=== PATIENT | male | born 1985 | race Caucasian/White ===

== ENCOUNTER 2021-09-08 14:26 | Emergency (ER) | payer OTHER, SELFPAY ==
[2021-09-08 14:52] VITALS: BP 128/69; PULSE 64; RESP 18; TEMP 36.9; O2SAT 97; BMI 25.5
--- NOTE | 2021-09-08 16:05 | ED.GENADULT ---
HPI - General Adult General Chief complaint: General Medical Stated complaint: nose bleed Time Seen by Provider: 09/08/21 16:01 Source: patient Mode of arrival: ambulatory Limitations: no limitations History of Present Illness HPI narrative: 35-year-old male previously healthy here with reports of nose bleed which the patient notice with waking at 05:00. It lasted several hours and self-resolved. No history of same. No history of anticoagulation use. No current nose bleed. Review of Systems Review of Systems: Yes all other systems are reviewed and are negative Constitutional: Constitutional: Reports no additional constitutional complaints, Denies body ache(s), Denies chills, Denies fever(s), Denies headache(s) and Denies weakness Eyes: Eyes: Reports no additional eye complaints and Denies change in vision ENT: Reports system reviewed and no additional complaints, except as documented, Denies dizziness, Denies headache(s), Reports epistaxis, Denies nasal congestion, Denies nasal discharge and Denies neck pain Cardiovascular: Cardiovascular: Reports no additional cardiovascular complaints, Denies chest pain, Denies leg edema and Denies dyspnea Respiratory: Respiratory: Reports no additional respiratory complaints, Denies cough and Denies dyspnea Gastrointestinal: Gastrointestinal: Reports no additional gastrointestinal complaints, Denies abdominal pain, Denies diarrhea, Denies nausea and Denies vomiting Genitourinary: Genitourinary: Denies urinary incontinence Musculoskeletal: Musculoskeletal: Reports no additional musculoskeletal complaints, Denies back pain, Denies arthralgias, Denies joint swelling, Denies neck pain, Denies numbness and Denies tingling Integumentary/Breasts: Skin/Breast: Reports system reviewed and no additional complaints, except as docu and Denies rash Neurologic: Reports system reviewed and no additional complaints, except as documented, Denies dizziness, Denies headache(s), Denies numbness, Denies tingling and Denies weakness [facility] Past Medical History Attestation statement: The following information was validated with the patient. Source: old records reviewed and nursing notes reviewed Medical History Asthma Physical Exam ED Vital Signs: Vital Signs - 24 hr 09/08/21 14:52 09/08/21 16:19 Temperature 98.4 F Pulse Rate 64 70 Respiratory Rate 18 18 Blood Pressure 128/69 120/70 Pulse Oximetry 97 99 BMI result Body Mass Index 25.5 Const General: cooperative, healthy appearing, comfortable and no acute distress Orientation/consciousness: patient oriented x3 Limitations: no limitations HENMT Head: Yes normal to inspection Ears: hearing grossly normal bilaterally and TM's normal bilaterally General nose exam: Normal external nose present, Abnormal mucous membranes and turbinates present erythematous and no epistaxis Face and sinus: Yes normal facial exam Mouth: Normal oral and palatal mucosa present Teeth and gingiva: dentition normal Throat: Yes posterior oropharynx normal, Yes tonsils normal and Yes uvula midline Eyes General: appearance normal, both eyes and all related structures Pupils: Equal, round and reactive pupils present Neck Neck: Yes normal visual inspection, Yes full ROM and Yes no lymphadenopathy Chest Chest palpation & inspection: normal inspection of the chest Resp Effort & Inspection: normal respiratory effort Cardio Peripheral pulses: Peripheral pulses 2+ throughout GI Inspection: Yes normal to inspection Back/Spine/Pelvis Thoracic/Lumbar Spine: thoracic and lumbar spine normal to inspection Skin General skin exam: no rashes or lesions noted Neuro General: patient oriented x3 and moves all extremities Cranial nerves: Yes Equal, round and reactive pupils present Cognition (Neuro): normal cognition Extrem General: Yes normal to inspection Course Course Course Narrative: 35-year-old male with reports of nose bleed which he woke up with early this morning which lasted for several hours and self-resolved. Patient has no bleeding here in the emergency department. Exam is normal. I discussed with the patient this is likely due to the cold dry air. He should consider buying him humidifer the bedroom, lubrication for his nose, Afrin p.r.n. for bleeding at home. Reviewed worrisome signs and symptoms of when to return to the emergency department. Comfortable discharge home. Medical Decision Making Medical Records Medical records reviewed: Yes I reviewed the patient's medical records. Lab Data Lab results reviewed: Yes I reviewed the patient's lab results. Discharge Plan Discharge Clinical Impression: Acute anterior epistaxis Patient Disposition: Home, Self-Care Instructions: Nosebleed (ED) Additional Instructions: Buy a humidifier to keeping her bedroom at night time Apply thin layer of Vaseline just at the entrance of the nose before bedtime Buy Afrin. Have this at home in case you have a nose bleed. You may apply 2 sprays to each affected nare and then apply for 15-20 minutes Referrals: Physician,None [Primary Care Provider] - 5 days Interventions: ED Discharge Assessment Last Done: 09/08/21 16:18
[2021-09-08 16:19] VITALS: BP 120/70; PULSE 70; RESP 18; O2SAT 99
== END 2021-09-08 16:28 | disposition home or self-care (01) ==
LOC: HO.ED 16:27
PROVIDERS: Emergency Provider Emergency Medicine
DX: R04.0 Epistaxis (principal)
CPT/HCPCS: 99282; 99284

== ENCOUNTER 2022-10-30 12:05 | Outpatient (REF) | payer MEDICAID, SELFPAY ==
--- NOTE | ~2022-10-30 | XR_ITS ---
EXAMINATION: XR LUMBOSACRAL SPINE CLINICAL INFORMATION: Left lower extremity lumbar radiculopathy. Acute and chronic low back pain. COMPARISON: None available. TECHNIQUE: Three views of the lumbosacral spine. FINDINGS: There is transitional anatomy. Levels are designated with the last rib-bearing vertebral body designated as the transitional vertebral body. There is mild curvature of the mid lumbar spine to the right. Bone alignment is otherwise normal. No fracture or dislocation. There is degenerative disc disease and spondylosis at L3-L4 and L4-L5. Paraspinal soft tissues are unremarkable. XR/XR lumbar spine 2-3V IMPRESSION: Transitional anatomy. Mild scoliosis and degenerative changes.
== END 2022-10-30 12:06 | disposition home or self-care (01) ==
LOC: HO.HHCX 12:05
PROVIDERS: Visit Provider Emergency Medicine
DX: M54.16 Radiculopathy, lumbar region (principal)
CPT/HCPCS: 72100

== ENCOUNTER 2022-11-29 09:22 | Outpatient (REF) | payer MEDICAID, SELFPAY ==
--- NOTE | 2022-11-29 | EMG_ITS ---
Please see scanned EMG / Nerve Conduction Report. MTDD
== END 2022-11-29 09:23 | disposition home or self-care (01) ==
LOC: HO.NEURO 09:22
PROVIDERS: Visit Provider Registered Nurse
DX: R20.0 Anesthesia of skin (principal); R20.2 Paresthesia of skin
CPT/HCPCS: 95885; 95913

== ENCOUNTER 2023-01-30 16:22 | Emergency (ER) | payer OTHER, SELFPAY ==
--- NOTE | ~2023-01-30 | CT_ITS ---
EXAMINATION: CT HEAD WITHOUT CONTRAST CLINICAL INFORMATION: Head injury. COMPARISON: None available. TECHNIQUE: Contiguous axial imaging was performed from the skull-base to vertex without intravenous administration of contrast. This CT examination was performed using dose optimization techniques as appropriate, variously including the following: *Automated exposure control. *Adjustment of mA and/or kV according to patient size (this includes techniques or standardized protocols for targeted exams where dose is matched to indication/reason for exam; i.e. extremities or head). *Use of iterative reconstruction technique. DLP: 726 mGy-cm FINDINGS: The lateral, third and fourth ventricles are normally outlined. The cortical sulci and basal cisterns are normally outlined as well. There is no acute territorial defect, hemorrhage or midline shift. The extra-axial spaces are unremarkable. Calvarium: Heterogeneous with multiple nonspecific lucencies. Maxillofacial Sinuses and Mastoids: Clear as visualized. CT/CT head/brain wo IV con IMPRESSION: No acute intracranial pathology.
--- NOTE | 2023-01-30 16:28 | ED_ITS ---
HPI - General Adult General Chief complaint: Head Injury Stated complaint: fall/head injury Time Seen by Provider: 01/30/23 21:58 Source: patient Mode of arrival: ambulatory Limitations: no limitations History of Present Illness HPI narrative: Patient is a 37-year-old male presents emergency department for evaluation after head injury. Reports yesterday while at work a bladder had fallen and struck him in the right side of the head. There was no loss of consciousness. He initially experienced dizziness that lasted approximately 2.5 hours and then resolved. Today he has pain to the right temporal/parietal region described as a pressure and throbbing sensation. Denies any vision changes, neck pain, neck stiffness. Denies use of anticoagulants. Related Data Allergies Allergy/AdvReac Type Severity Reaction Status Date / Time No Known Allergies Allergy Verified 01/30/23 16:29 Review of Systems Review of Systems: Constitutional : No Fever, No Chills, No Fatigue ENT/Mouth : No sore throat, No Rhinorrhea Eyes: No Eye Pain, No Swelling, No Redness Cardiovascular : No Chest Pain, No SOB, No Dyspnea on Exertion Respiratory : No Cough, No Sputum Gastrointestinal : No Nausea, No Vomiting, No Diarrhea, No abdominal Pain Genitourinary : No Dysuria, No Urinary Frequency, No Hematuria, Musculoskeletal : No joint pain, No Myalgias, No Joint Swelling Skin : No Skin Lesions, No rash Neuro : No Weakness, No Numbness, No Dizziness, positive Headache Psych : No Anxiety/Panic, No Depression Heme/Lymph: No Bruising, No Bleeding,No Lymphadenopathy Endocrine : No Polyuria, No Polydipsia Yes all other systems are reviewed and are negative PMFSH Past Medical History Attestation statement: The following information was validated with the patient. Source: old records reviewed Medical History Asthma Social History Social History Alcohol intake: current Alcohol intake frequency: holidays/special occasions only Smoked in Last 30 Days: Yes Use of substances other than those prescribed or required for medical reasons: Yes Substance Use Type: Marijuana Advance Directives: No Advance Directives Information Provided: Yes Physical Exam ED Vital Signs: Vital Signs - 24 hr 01/30/23 16:29 01/30/23 22:03 Temperature 98.8 F 98.1 F Pulse Rate 86 55 Respiratory Rate 18 16 Blood Pressure 118/80 119/67 Pulse Oximetry 96 96 Oxygen Delivery Method Room Air Room Air BMI result Body Mass Index 34.6 Appearance: Alert.?Oriented to person, place and time. No acute distress.?N ormal affect. Head: Normocephalic Eyes: Pupils equal, round and reactive to light. EOMI. Conjunctiva and sclera normal? No Mae sign noted. No raccoon eyes noted ENT: No septal hematoma, nares patent bilaterally. External auditory canal normal tympanic membrane pearly arredondo and intact bilaterally. Dentition normal, no fractured teeth. No lesions or lacerations of oropharynx. Uvula midline. Moist mucous membranes. Neck: Normal inspection.? Neck supple.??No palpable tenderness, step-off, deformities. CVS: Heart sounds normal. Normal heart rate and rhythm.? Pulses normal.?? Respiratory: No respiratory distress.? Lung sounds clear to auscultation bilaterally?? Abdomen: Soft and non-tender. Normoactive bowel sounds. ?? Skin: Skin warm and dry.? Normal skin color.? Normal skin turgor.?? Extremities: No lower extremity edema.? Neuro: Moves all extremities spontaneously. Sensation intact bilaterally. CN II- XII intact. No focal neuro deficits. Course Course Course Narrative: This is an RME: Additional HPI, ROS, PE not included below will be deferred to primary provider. Patient is a 37 year old male presenting after a ladder fell and hit him on the head at work yesterday. He has been dizzy ever since. No pain with extraocular movements. Patient rates pain an 8/10. NIH Stroke Scale 0. GCS 15 Plan: imaging Medical Decision Making Medical Decision Making MDM Narrative: Patient is a 37-year-old male who presents emergency department for evaluation of head injury that he sustained yesterday without loss of consciousness. There are no focal neurological deficits upon examination. He is overall well- appearing, nontoxic. CT of the head obtained from rapid medical examination provider is without evidence of acute intracranial pathology, no ICH or skull fracture. Symptoms at this time consistent with concussion. Reviewed symptoms of concussion, conservative treatment, anticipated improvement, worrisome signs and symptoms that would warrant re-evaluation in the emergency department. Advised outpatient follow-up with primary care provider. All questions were answered. Differential Diagnosis Differential Diagnoses: The differential diagnosis associated with the presentation includes (As noted above) Radiology Impression Discussion of test interpretation with radiology: I have reviewed the radiologist's reading. Radiologist Impression: CT/CT head/brain wo IV con IMPRESSION: No acute intracranial pathology. ? Independent Historian Clinical information obtained from an independent historian. History obtained from or confirmed by: Spouse (Patient's significant other confirms history) Prescription Management I considered prescription management with: Pain Medication (Acetaminophen/ibuprofen) Discharge Plan Discharge Clinical Impression: Concussion without loss of consciousness Patient Disposition: Home, Self-Care Instructions: Concussion (ED), Post Concussion Syndrome (ED) Referrals: Yadi Hyatt MD [Primary Care Provider] - Stand Alone Forms: Work/School Release
[2023-01-30 16:29] VITALS: BP 118/80; PULSE 86; RESP 18; TEMP 37.1; O2SAT 96; BMI 34.6
[2023-01-30 22:03] VITALS: BP 119/67; PULSE 55; RESP 16; TEMP 36.7; O2SAT 96
[2023-01-30 23:03] VITALS: BP 121/69; PULSE 64; RESP 16; TEMP 36.8; O2SAT 98
== END 2023-01-30 23:21 | disposition home or self-care (01) ==
PROVIDERS: Emergency Provider Emergency Medicine Emergency Medical Services; PCP Student in an Organized Health Care Education/Training Program
DX: S06.0X0A Concussion without loss of consciousness, initial encounter (principal); W20.8XXA Other cause of strike by thrown, projected or falling object, initial encounter; Y93.89 Activity, other specified; Y92.9 Unspecified place or not applicable; Y99.0 Civilian activity done for income or pay
CPT/HCPCS: 70450; 99284

== ENCOUNTER 2023-03-09 16:16 | Outpatient (REF) | payer MEDICAID, SELFPAY ==
[2023-03-09 18:27] LABS: Alanine Aminotransferase 26 U/L (0-40); Albumin Level 4.2 g/dL (3.5-5.0); Alkaline Phosphatase 73 U/L (39-117); Anion Gap 13 (12-20); Aspartate Amino Transferase 23 U/L (5-37); Bilirubin Total 0.3 mg/dL (0.0-1.0); Blood Urea Nitrogen 13 mg/dL (9-16); Calcium 9.5 mg/dL (8.4-10.2); Carbon Dioxide 24 mmol/L (22-29); Chloride 107 mmol/L (96-108); Estimated Glomerular Filt Rate > 60; Glucose Random 76 mg/dL (60-115); Potassium 4.1 mmol/L (3.3-5.1); Sodium 140 mmol/L (135-145)
[2023-03-12 03:50] LABS: HBS Num1 72.94 mIU/mL (0-7.99); HBc Num1 0.06 S/CO (0.00-0.79); HBsAGNum1 0.49 S/CO (0.00-0.99); Hepatitis B Core Antibody Nonreactive (Nonreactive); Hepatitis B Surface Antigen Negative (Negative); ~Hepatitis B Surface Antibody REACTIVE (Nonreactive)
== END 2023-03-09 16:17 | disposition home or self-care (01) ==
LOC: HO.HHCL 16:16
PROVIDERS: Visit Provider Student in an Organized Health Care Education/Training Program
DX: R74.01 Elevation of levels of liver transaminase levels (principal)
CPT/HCPCS: 36415; 80053; 86704; 86706; 87340

== ENCOUNTER 2023-03-21 13:24 | Emergency (ER) | payer OTHER, MEDICAID, SELFPAY ==
--- NOTE | ~2023-03-21 | XR_ITS ---
EXAMINATION: XR KNEE, LEFT CLINICAL INFORMATION: Swelling and pain COMPARISON: None available. TECHNIQUE: Four views of the left knee. FINDINGS: No fracture, dislocation or destructive lesion or joint effusion. XR/XR knee LT 3V IMPRESSION: Unremarkable study.
[2023-03-21 14:11] VITALS: BP 119/75; PULSE 76; RESP 16; TEMP 37.3; O2SAT 96; BMI 34.7
--- NOTE | 2023-03-21 14:11 | ED.LOWEXIN ---
HPI - Extremity Injury (Lower) General Chief Complaint: Extremity Injury, Lower Stated Complaint: knee pain Time Seen by Provider: 03/21/23 16:31 Source: patient, RN notes reviewed and old records reviewed Mode of arrival: ambulatory History of Present Illness HPI Narrative: 37-year-old male no significant past medical history presenting to the ED complaining of atraumatic left knee pain x1 year worsening over the past few days. Reports increasing swelling to left knee. Denies fever/chills, numbness/tingling MD complaint: knee injury Related Data Previous Rx's Medication Instructions Recorded acetaminophen 500 mg tablet 500 mg PO Q6H PRN fever or pain 03/21/23 (Tylenol Extra Strength) #14 tabs naproxen 500 mg tablet 500 mg PO BID PRN pain 10 days #20 03/21/23 tabs Allergies Allergy/AdvReac Type Severity Reaction Status Date / Time No Known Allergies Allergy Verified 03/21/23 14:13 Review of Systems Review of Systems: Constitutional: No Fever, No Chills ENT/Mouth: No Ear Pain, No Nasal Congestion, No sore throat, No Rhinorrhea, No Swallowing Difficulty Cardiovascular: No Chest Pain, No SOB Respiratory: No Cough, No Sputum, No Wheezing Gastrointestinal: No Nausea, No Vomiting, No Diarrhea, No Constipation, No Abdominal pain Musculoskeletal: + joint pain, No Myalgias, +Joint Swelling Skin: No Skin Lesions, No rash Neuro: No Weakness, No Numbness, No Paresthesias Yes all other systems are reviewed and are negative Constitutional: Constitutional: Reports as per [facility] Past Medical History Attestation statement: The following information was validated with the patient. Source: old records reviewed Medical History Asthma Social History Social History Alcohol intake: current Alcohol intake frequency: holidays/special occasions only Substance Use Type: Marijuana Physical Exam Vital Signs: Vital Signs: Last Vital Signs Temp 99.1 F 03/21/23 14:11 Pulse 76 03/21/23 14:11 Resp 16 03/21/23 14:11 BP 119/75 03/21/23 14:11 Pulse Ox 96 03/21/23 14:11 O2 Del Method Room Air 03/21/23 14:11 BMI result Body Mass Index 34.7 Const: General: cooperative, healthy appearing and no acute distress Orientation/consciousness: patient oriented x3 Limitations: no limitations HEENT: Head: Yes normal to inspection and Yes atraumatic Ears: hearing grossly normal bilaterally General nose exam: Normal external nose present Face and sinus: Yes normal facial exam Eyes: General: appearance normal, both eyes and all related structures EOM: EOMs intact bilaterally Neck: Neck: Yes normal visual inspection and Yes no meningeal signs Resp: Effort & Inspection: normal respiratory effort and no respiratory distress Cardio: Rate: regular rate Skin: Rashes: no rashes Wounds: no wounds Neuro: General: patient oriented x3, tone normal and no meningeal signs Cranial nerves: Yes CN's II-XII intact bilaterally Gait exam (Neuro): Normal gait present Extrem: Other: Left knee with mild diffuse swelling. No erythema/warmth. + tenderness > medial aspect. Flexion intact with discomfort. Extension WNL. Neurovascular intact distally. No pitting edema or calf tenderness Course Course Course Narrative: RME: 37yo M w/no sig PMHx c/o L knee pain x1 year worsening over the past few days. L knee w/mild swelling. ambulating w/steady gait XRs ordered Full HPI, ROS and PE to be performed by primary ED provider. XR knee LT 3V IMPRESSION: Unremarkable study. >JERMAINE applied Results discussed with patient including worrisome signs and symptoms and strict return precautions, and when to return to the emergency department. They verbalized understanding and feel safe for discharge at this time. Medical Decision Making Medical Decision Making MDM Narrative: 37-year-old male no significant past medical history presenting to the ED complaining of atraumatic left knee pain x1 year worsening over the past few days. On exam vital signs stable, NAD, nontoxic appearing. Physical exam as above. Concern for meniscal or tendon/ligamental injury vs tendinitis. Low suspicion for fracture or dislocation. Unlikely septic joint arthritis Plan: X-rays Please refer to course for remaining clinical decision making, interpretation of labs/imaging results, and discussions with consultants and/or family members. Differential Diagnosis Differential Diagnoses: The differential diagnosis associated with the presentation includes As above Independent Interpretation I performed an independent interpretation of an: Plain X-Ray (Unremarkable) Radiology Impression Discussion of test interpretation with radiology: I have reviewed the radiologist's reading. External Record Review External record reviewed: Inpatient record, Office record, Outpatient record, Prior outpatient labs, Prior outpatient radiology, Primary care record and Outside ED record Tests considered The following testing was considered but not selected: As above Prescription Management I considered prescription management with: Pain Medication Discharge Plan Discharge Clinical Impression: Chronic knee pain Patient Disposition: Home, Self-Care Instructions: Knee Pain (ED) Additional Instructions: Your x-ray is reassuring. Wear Jermaine wrap for comfort/stability and compression Ice and elevate Naproxen as an anti-inflammatory/pain medicine take with food In addition take Tylenol Please follow-up with orthopedics You will likely need an MRI Prescriptions: New acetaminophen [Tylenol Extra Strength] 500 mg tablet 500 mg PO Q6H PRN (Reason: fever or pain) Qty: 14 0RF naproxen 500 mg tablet 500 mg PO BID PRN (Reason: pain) 10 Days Qty: 20 0RF Referrals: [facility] [place] Orthopedic Surgeons [Provider Group] Stand Alone Forms: Work/School Release
== END 2023-03-21 16:36 | disposition home or self-care (01) ==
PROVIDERS: Emergency Provider Emergency Medicine
DX: M25.562 Pain in left knee (principal); M25.462 Effusion, left knee
CPT/HCPCS: 73562; 99282; 99283

== ENCOUNTER 2023-04-04 14:26 | Outpatient (AMB) | payer MEDICAID, SELFPAY ==
--- NOTE | 2023-04-04 14:31 | MHC.OFFVIS ---
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 The patient states that he injured his knee approximately 1 year ago. He twisted his knee and had acute onset of pain. Since that time his symptoms have gotten worse in spite of continued non operative treatments. He has done physical therapy for 12 weeks over the last 6 months which aggravated his pain. He has also tried Tylenol and anti-inflammatory medicines which gave him minimal relief he has had injections in the past which gave him only temporary relief. He states that his left knee will give out several times per day. Allergies No Known Allergies Allergy (Verified 03/21/23 14:13) Medication List - Last Reconciled 04/05/23 by Mark Alba MD acetaminophen (Tylenol Extra Strength) 500 mg PO Q6H PRN naproxen 500 mg PO BID PRN 10 days PFSH Medical History Asthma Social History Alcohol intake: current Alcohol intake frequency: holidays/special occasions only Substance Use Type: Marijuana Physical Exam Const Other: Well-nourished well-developed very friendly male awake alert and oriented x3 in no acute distress Extrem Other: Bilateral lower extremity examination shows good capillary refill, no skin lesions noted, normal sensation light touch Left knee examination shows a mild effusion, minimal crepitus with range of motion, tenderness along his medial and lateral joint lines, positive Kota's test, no instability Office Procedures Joint Injection/Drain Joint Injection/Drain Primary Site: left knee Prep: site was prepped using aseptic technique Injected: 40 mg of, Kenalog and 1% plain lidocaine Procedure: The patient tolerated the procedure well Coding 34141 - Large joint Procedure code (CPT) selection complete Results Reviewed Results Reviewed: 04/04/23 15:04 Lidocaine HCl 2 % MPF [Xylocaine 2 % MPF] 5 ml .ROUTE .STK-MED ONE Triamcinolone Acetonide [Kenalog-40] 40 mg .ROUTE .STK-MED ONE X-rays of the patient's left knee show mild diffuse joint space narrowing, no acute bony abnormalities Assessment & Plan Assessment & Plan (1) Left knee pain: Code(s): M25.562 - Pain in left knee Plan Mr. Shayan Hernandez presents with progressively worsening left knee pain and mechanical symptoms most likely due to tearing of his medial and lateral menisci. I had a lengthy discussion with the patient regarding the treatment options. The risks and benefits of a cortisone injection were discussed at length with the patient. The patient wished to proceed. Prior to the injection I did aspirate 10 cc of clear fluid from his left knee. I will also send the patient for an MRI of his left knee to further evaluate him for possible meniscus tearing. I will see him back once the MRI is completed to discuss the findings and treatment options. He will call me prior to that time should any questions or concerns arise. I spent 22 minutes in reviewing the patient's records and imaging studies, seeing the patient and documenting in the medical record. Orders: Orders MR knee LT wo con 04/04/23 M25.562 - Pain in left knee AMB Joint Injection/Aspiration 04/04/23 M25.562 - Pain in left knee Coding Level of Care Code New Pt Level 2 (46556) Diagnoses Left knee pain M25.562 CPT Codes Coding - 64226 Large joint: 77131 - Large joint ([id number])
== END 2023-04-04 15:26 | disposition home or self-care (01) ==
PROVIDERS: Visit Provider Orthopaedic Surgery
DX: M25.562 Pain in left knee (principal)
CPT/HCPCS: 20610; 99204

== ENCOUNTER → 2023-04-04 14:26 | Outpatient (BNVA) | payer MEDICAID, SELFPAY | PROVIDERS: Visit Provider Orthopaedic Surgery | DX: M25.562 Pain in left knee (principal) | CPT/HCPCS: 20610; J3301 ==

== ENCOUNTER 2023-04-18 10:50 | Outpatient (AMB) | payer MEDICAID, SELFPAY ==
[2023-04-18 10:57] VITALS: BMI 34.7
--- NOTE | 2023-04-18 10:57 | MHC.OFFVIS ---
Intake Vital Signs 04/18/23 10:57 Height 5 ft 10 in Weight 242 lb BMI 34.7 Intake Visit Reasons: NewProb-B/L carpal tunnel syndrome Intake Note: Ranjit is a 37 year old right hand dominant male who presents today with complaints of bilateral hand pain, numbness and tingling. Nerve conduction study done at [facility] [place] on 11/29/2022. Patient reports that he has had these symptoms for about a year now but have worsened in the last few months. His pain and numbness is intermittent, worse at night. 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 Allergies No Known Allergies Allergy (Verified 03/21/23 14:13) HPI HPI Comments History of Present Illness Details Going on for 10 months, on/off. 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 At night feels ants on the hands, wakes him up. Getting worse now. Sometimes whole arm feels numb. Pain on the wrist. Right worse than left. Can't tell if has neck pain. Says he had fallen from the job. Following orthopedics Dr. Alba for knee and back pain. Reports all fingers get numbness. Occasional dropping things. Fingers cramp. Treatment done so far: NSAIDs didn't help uses wrist brace [facility] Medical History (Updated 04/18/23 @ 11:16 by Loly Hylton MD) Carpal tunnel syndrome on both sides Asthma Social History Alcohol intake: current Alcohol intake frequency: holidays/special occasions only Substance Use Type: Marijuana Review of Systems Const All systems reviewed & are unremarkable except as noted in HPI and below Physical Exam Vital Signs: BMI result Body Mass Index 34.7 Constitutional: Patient appears to be in no acute distress, well nourished and well developed. MSK: Inspection reveals appropriate head and neck positioning. Cervical ROM was full. Spurling's sign negative. Bilateral shoulder ROM WNL. No ligamentous laxity or crepitance. No increased effusion. Hawkin's test is negative. No joint effusion noted. No deformity noted. No intrinsic hand weakness noted. No atrophy noted. Renard test negative. Carpal compression test positive right. Tinel sign negative. Strength is 5/5 in all muscle groups tested. No increased tone noted. Neurological: Neurologic examination of the upper and lower extremities was nonfocal with intact sensation, muscle stretch reflexes and without focal motor deficits . Huff?s negative bilaterally. Gait is non-antalgic without loss of balance. Results Reviewed Results Reviewed: I independently reviewed the results of the following: NCS/EMG done by Dr. Peña 11/29/2022 showed mild bilateral Carpal Tunnel Syndrome I reviewed records from the following: Orthopedic Assessment & Plan Assessment & Plan (1) Carpal tunnel syndrome on both sides: Code(s): G56.03 - Carpal tunnel syndrome, bilateral upper limbs Plan Clinical signs for carpal tunnel, right worse than left. EMG showed mild Carpal Tunnel Syndrome bilateral. At this point, I would not recommend surgery yet. I would treat this conservatively for now. Continue to wear wrist brace especially at night and during rest breaks at work. We discussed why wrist brace is important. Offered steroid injection which he at 1st did not want to do but then reconsidered. However, knee injection was just 2 weeks ago. Would recommend waiting another 2 weeks at least. Patient says he will call when he decides to get injection done. Will refer him to OT. If symptoms persist 6 months after last EMG, which will be around end of the year, then we may consider repeating EMG. Assessment and plan discussed with patient, and patient was agreeable. All questions were answered thoroughly. Loly Hylton MD, ANGELES Board Certified, [place] Board [employer] Physical Medicine and Rehabilitation (ABPMR) Board Certified, [place] Board [employer] Electrodiagnostic Medicine (ABEM) Orders: Orders OT Evaluation and Treatment Today G56.03 - Carpal tunnel syndrome, bilateral upper limbs Coding Level of Care Code New Pt Level 3 (85396) Diagnoses Carpal tunnel syndrome on both sides G56.03
== END 2023-04-18 11:30 | disposition home or self-care (01) ==
PROVIDERS: PCP Student in an Organized Health Care Education/Training Program; Visit Provider Physical Medicine & Rehabilitation
DX: G56.03 Carpal tunnel syndrome, bilateral upper limbs (principal)
CPT/HCPCS: 99203

== ENCOUNTER → 2023-04-18 10:50 | Outpatient (BNVA) | payer MEDICAID, SELFPAY | PROVIDERS: PCP Student in an Organized Health Care Education/Training Program; Visit Provider Physical Medicine & Rehabilitation | DX: G56.03 Carpal tunnel syndrome, bilateral upper limbs (principal) | CPT/HCPCS: 99202 ==

== ENCOUNTER 2023-05-16 10:16 | Outpatient (REF) | payer MEDICAID, SELFPAY ==
--- NOTE | ~2023-05-16 | MR_ITS ---
EXAMINATION: MR KNEE WITHOUT CONTRAST, LEFT CLINICAL INFORMATION: Left knee pain COMPARISON: Radiographs 03/21/2023 TECHNIQUE: MRI of the knee without contrast was performed using routine sequences on a high-field scanner. FINDINGS: MENISCI: Medial Meniscus: Tearing along the inner margin and undersurface of the posterior horn and body. There is a 1.6 cm fragment along the superior aspect of the anterior horn and a 1.1 cm fragment projecting anteriorly from the root of the posterior horn which is likely a torn and displaced bucket-handle tear. Lateral Meniscus: Irregular tearing along the undersurface and inner margin of the body and posterior horn, extending to the superior articular surface at the junction of the body and anterior horn. LIGAMENTS: Cruciate: Mucoid degeneration and/or ill-defined partial tearing of the distal ACL. Reactive marrow changes at the tibial insertion with a cyst and surrounding marrow edema. The posterior cruciate ligament appears intact. Collateral: Intact EXTENSOR MECHANISM: Intact ARTICULAR CARTILAGE/BONE: Patellofemoral Compartment: Minimal cartilage surface irregularity of the central patella. Medial Compartment: Foci of cartilage signal heterogeneity of the tibia. Lateral Compartment: Peripheral cartilage thinning and small marginal osteophytes. JOINT FLUID AND BURSAE: Small joint effusion and Baeza's cyst. There is an 8mm chondral body or thickened septation within the Baeza's cyst. MR/MR knee LT wo con IMPRESSION: 1. Complex tearing of the medial meniscus with displaced fragments as described, likely a torn bucket-handle fragment. 2. Irregular tearing of the lateral meniscus body and posterior horn. 3. Mucoid degeneration and/or ill-defined partial tearing of the distal ACL with reactive marrow changes at the tibial insertion. 4. Mild tricompartmental osteoarthritis with a small joint effusion and Baeza's cyst.
== END 2023-05-16 10:17 | disposition home or self-care (01) ==
LOC: HO.MRI 10:16
PROVIDERS: PCP Student in an Organized Health Care Education/Training Program; Visit Provider Orthopaedic Surgery
DX: M25.562 Pain in left knee (principal)
CPT/HCPCS: 73721; 97802

== ENCOUNTER 2023-05-16 14:30 | Outpatient (AMB) | payer MEDICAID, SELFPAY ==
[2023-05-16 14:38] VITALS: BMI 34.4
--- NOTE | 2023-05-16 14:38 | A.OFFVIS_ITS ---
Intake VS Expanded 05/16/23 14:38 05/29/23 21:33 Height 5 ft 10 in 5 ft 10 in Weight 240 lb 1.334 oz 240 lb BMI 34.4 34.4 Intake Visit Reasons: Obesity Allergies No Known Allergies Allergy (Verified 03/21/23 14:13) HPI Nutrition Presentation Details Pt presents for MNT for obesity . The Pt was referred by Dr. Clark, [facility] Typical meal intake caffeine containing beverages in AM Red bull /coffee and water Snacks 6-7 pm : rice/beans/ chickpeas or paulette er елена, Citizen Of [place] rest physical activity: at work/lifting ETOH: -- smoking-- WAQ-Xmvxtfo-Mz.Jeor Equation Height 5 ft 10 in Weight 240 lb Resting Metabolic Rate 2016.82 Calculated Activity Level Mild Activity Calories Needed to Maintain Weight 2773.13 Diagnosis Nutrition problem #1 food nutri know defi As related to (etiology) #1 diagnosis As evidenced by (sign/symptom) #1 high BMI (34.4 on 04/2023) and no prior educ - nutri rec Most Recent Diabetes Results: Creatinine 1.25 mg/dL (0.5-1.4) 03/09/23 Blood Urea Nitrogen 13 mg/dL (9-16) 03/09/23 Sodium 140 mmol/L (135-145) 03/09/23 Potassium 4.1 mmol/L (3.3-5.1) 03/09/23 Chloride 107 mmol/L (96-108) 03/09/23 Carbon Dioxide 24 mmol/L (22-29) 03/09/23 Calcium 9.5 mg/dL (8.4-10.2) 03/09/23 AST 23 U/L (5-37) 03/09/23 ALT 26 U/L (0-40) 03/09/23 Total Protein 7.0 g/dL (6.5-8.0) 03/09/23 Albumin 4.2 g/dL (3.5-5.0) 03/09/23 [facility] Medical History (Updated 05/16/23 @ 14:44 by Regina Ruano, RD, LDN) Carpal tunnel syndrome on both sides Asthma Social History Alcohol intake: current Alcohol intake frequency: holidays/special occasions only Substance Use Type: Marijuana Assessment & Plan Assessment & Plan (1) Obesity (BMI 30-39.9): Code(s): E66.9 - Obesity, unspecified Plan: wt: 109 kg Est kcal needs as per MSJ: 2800 (40% carb, 30% protein/fat) Est fluid needs as per 25-30 ml/d: 2745 -3200 Est prot per day as per 1 g/kg bw: 109 g Recommend fiber intake : 8-10 g per day and gradually increase to 25-28 g per day for women and 35-38 g for men or as tolerated Recommend sodium intake per day : less than 1500 mg less than 2000 mg Educated patient on: ( R = reviewed V = verbalizes understanding N/R = needs review N/A = not applicable * Food sources of carbohydrate, adequate serving sizes and its role in various health conditions: R * Differences between complex carbohydrates a simple carbohydrates, role of fiber in diet: NR * Differences between types of fats and role in diet (mono on saturated fat fatty acids, saturated fatty acids, trans fats): R basic * Food sources of sodium in salt and healthy modifications for heart health in kidney health: NR * Vitamins and minerals: NR * Healthy plate method concept: R * Physical activity: Benefits a precaution: R * Mindful eating strategies R Patient Instructions: Reduce on sugar from pastries and similar foods - have 1-2 fruits instead Reduce total carb to 20 g as snack , limit to 2 day Follow healthy plate method at dinner 5 times/wk Coding Level of Care Code Nutr Indiv Intake (87242) Diagnoses Obesity (BMI 30-39.9) E66.9 Time Spent (min) 30
[2023-05-29 21:33] VITALS: BMI 34.4
== END 2023-05-16 15:15 | disposition home or self-care (01) ==
PROVIDERS: PCP Student in an Organized Health Care Education/Training Program; Visit Provider Dietitian, Registered
DX: E66.9 Obesity, unspecified (principal)

== ENCOUNTER 2023-06-15 08:30 | Outpatient (RCR) | payer MEDICAID, SELFPAY ==
--- NOTE | 2023-04-25 11:57 | MHC.OT.EP ---
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 REPORTS SYMPTOMS HAVE BEEN PRESENT FOR ABOUT ONE YEAR BUT HAVE GOTTEN WORSE IN PAST FEW MONTHS. AN EMG WAS COMPLETED IN NOVEMBER 2022 INDICATING B/L MILD NERVE COMPRESSION AT THE MEDIAN NERVE. HE STATES A 25% LIMITATION PER THE QUICK DASH ASSESSMENT. 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 A BRIEF COURSE OF OT IS WARRANTED TO ADDRESS THE AREAS MENTIONED BELOW. Frequency and Duration: The patient will be seen 1X/WEEK FOR 4 WEEKS Short Term Goals: IND ORTHOSIS USE IND JT PROTECTION AND ACTIVITY MODIFICATION IND USE OF ICE/ TAPING STRATEGIES IND WITH SELF MANAGEMENT STRATEGIES Paper Finisher Goals: SEE ABOVE Treatment Plan: Therapeutic Exercise Therapeutic Activity Home Exercise Program Splinting Neuro Re-ed Patient Education Desensitization/Sensory Re-ed Edema Control ADL Training Ultrasound NMES Iontophoresis Paraffin Fluidotherapy MHP Cold Packs Joint Mobilization Soft Tissue Mobilization Kinesiotaping Other (see comments) Electronically Signed By: RAMIREZ LLAMAS OTR/L Please Sign and return to therapist. Thank you once again for your referral.
--- NOTE | 2023-06-15 08:55 | MHC.OT.DC ---
[address] [phone] F: [phone] Occupational Therapy Discharge Note Patient Name: Ranjit Hernandez Provider: Loly Hylton Diagnosis: B/L CTS Date of Surgery: Date of Evaluation: 04/25/23 Date of Discharge: 06/15/2023 Treatments to Date: 4 Cancellations to Date: 2 No Shows to Date: 0 Discharge Status: Achieved Goals Improved Function Independent with HEP Discharge Summary: Upon arrival patient reported 0/10 pain and stated he has a scheduled appointment in July with his surgeon. He is (I) with he home exercise program as well as joint protection techniques and self management. If surgery is indicated he will return for further therapy if appropriate. Patient is in agreement with discharge plan. He was a pleasure to work with. Thank you for your referral. Electronically Signed By: MAYURI Braun/TERESA Heck Reviewed/agree with student documentation: N/A Therapist: Please Sign and return to therapist, thank you for your referral.
== END 2023-06-22 14:20 | disposition home or self-care (01) ==
LOC: HO.OT 08:30
PROVIDERS: PCP Student in an Organized Health Care Education/Training Program; Visit Provider Physical Medicine & Rehabilitation
DX: G56.03 Carpal tunnel syndrome, bilateral upper limbs (principal)
CPT/HCPCS: 97035; 97110; 97165; 97535

== ENCOUNTER 2023-06-27 13:20 | Outpatient (AMB) | payer MEDICAID, SELFPAY ==
[2023-06-27 13:25] VITALS: BMI 34.4
--- NOTE | 2023-06-27 13:25 | A.OFFVIS_ITS ---
Intake Vital Signs 06/27/23 13:25 Height 5 ft 10 in Weight 240 lb BMI 34.4 Intake Visit Reasons: ov- MRI Knee LT review Intake Note: Ranjit is a 37 year old male who presents with complaints of progressively worsening left knee pain and giving way. Patient describes his pain as sharp in nature. Most of the pain is along the medial aspect of his knee. His symptoms have gotten worse in spite of continued non operative treatments. He has tried Tylenol and anti-inflammatory medicines which gave him minimal relief. The patient states that at times his left knee feels like it will give out. Allergies No Known Allergies Allergy (Verified 06/27/23 13:29) Medication List - Last Reviewed 06/27/23 by Aliza Armendariz CMA acetaminophen (Tylenol Extra Strength) 500 mg PO Q6H PRN naproxen 500 mg PO BID PRN 10 days PFSH Medical History Carpal tunnel syndrome on both sides Asthma Social History Alcohol intake: current Alcohol intake frequency: holidays/special occasions o nly Substance Use Type: Marijuana Physical Exam Vital Signs: BMI result Body Mass Index 34.4 Const Other: Well-nourished well-developed very friendly male awake alert and oriented x3 in no acute distress Extrem Other: Bilateral lower extremity examination shows good capillary refill, no skin lesions noted, normal sensation light touch Left knee examination shows a minimal effusion, minimal crepitus with range of motion, tenderness along his medial joint line, positive Kota's test, no instability Results Reviewed Results Reviewed: MRI of the patient's left knee shows minimal diffuse degenerative changes, tearing of his medial meniscus, no acute bony abnormalities Assessment & Plan Assessment & Plan (1) Left knee pain: Code(s): M25.562 - Pain in left knee Plan Mr. Shayan Hernandez presents with progressively worsening left knee pain and mechanical symptoms due to a medial meniscus tear. I had a lengthy discussion with the patient regarding the treatment options. At this point he has failed continued non operative treatments. The risks and benefits of left knee arthroscopic surgery were discussed at length with the patient. The patient wishes to proceed with surgery. Surgery will most likely involve left knee diagnostic arthroscopy with left knee arthroscopic partial medial meniscectomy. The patient does understand that he may not get 100% relief of his symptoms depending on the severity of his degenerative changes. The patient will contact my office to pick a surgery date. He will follow-up as instructed. Feel free to call me at any time should questions regarding his orthopedic management arise. I spent 22 minutes in reviewing the patient's records and imaging studies, seeing the patient and documenting in the medical record. Coding Level of Care Code Est Pt Level 2 (06300) Diagnoses Left knee pain M25.562
== END 2023-06-27 13:42 | disposition home or self-care (01) ==
PROVIDERS: PCP Student in an Organized Health Care Education/Training Program; Visit Provider Orthopaedic Surgery
DX: S83.242A Other tear of medial meniscus, current injury, left knee, initial encounter (principal)
CPT/HCPCS: 99213

== ENCOUNTER → 2023-06-27 13:20 | Outpatient (BNVA) | payer MEDICAID, SELFPAY | PROVIDERS: PCP Student in an Organized Health Care Education/Training Program; Visit Provider Orthopaedic Surgery | DX: M25.562 Pain in left knee (principal) | CPT/HCPCS: 99212 ==

== ENCOUNTER 2023-07-19 08:53 | Outpatient (AMB) | payer MEDICAID, SELFPAY ==
[2023-07-19 08:58] VITALS: BMI 34.4
--- NOTE | 2023-07-19 08:58 | MHC.OFFVIS ---
Intake Vital Signs 07/19/23 08:58 Height 5 ft 10 in Weight 240 lb BMI 34.4 Intake Visit Reasons: OV-B/L carpal tunnel syndrome-Follow up Intake Note: Ranjit 37 yr old male presents today for his follow up visit for his B/L carpal tunnel syndrome to discuss injection. Patient states he would like to move forward with injection? Reports he has attended O.T with some improvement. States he has been out of work for a few weeks now and is looking to return. Allergies No Known Allergies Allergy (Verified 07/19/23 09:02) Medication List - Last Reconciled 07/19/23 by Loly Hylton MD acetaminophen (Tylenol Extra Strength) 500 mg PO Q6H PRN HPI HPI Comments History of Present Illness Details Going on for 10 months, on/off. 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 At night feels ants on the hands, wakes him up. Getting worse now. Sometimes whole arm feels numb. Pain on the wrist. Right worse than left. EMG done by Dr. Marquez 12/08 showed mild Carpal Tunnel Syndrome. Since last time I saw him, he reports improvement of symptoms. Denies anymore pain or numbness. He has been going to therapy. If thought him how to do exercises with a ball and rubber-band. Those exercises have been helping Humalog. 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 MSK: No joint effusion noted. No deformity noted. No intrinsic hand weakness noted. No atrophy noted. Renard test negative. Carpal compression test negative. Tinel sign negative. Strength is 5/5 in all muscle groups tested. No increased tone noted. Neurological: Neurologic examination of the upper and lower extremities was nonfocal with intact sensation, muscle stretch reflexes and without focal motor deficits . Huff?s negative bilaterally. Gait is non-antalgic without loss of balance. Results Reviewed Results Reviewed: NCS/EMG done by Dr. Peña 11/29/2022 showed mild bilateral Carpal Tunnel Syndrome I reviewed records from the following: Orthopedic Assessment & Plan Assessment & Plan (1) Carpal tunnel syndrome on both sides: Code(s): G56.03 - Carpal tunnel syndrome, bilateral upper limbs Plan Carpal Tunnel Syndrome signs have improved. No other issues seen on exam today. No indication for injection at this time. No need to repeat EMG. From physiatry and hand perspective, may return to work. He is having knee meniscus surgery with Dr. Alba in July. Assessment and plan discussed with patient, and patient was agreeable. All questions were answered thoroughly. Loly Hylton MD, ANGELES Board Certified, [place] [employer] and [employer] (ABPMR) Board Certified, [place] [employer] (ABEM) Coding Level of Care Code Est Pt Level 3 (16872) Diagnoses Carpal tunnel syndrome on both sides G56.03
== END 2023-07-19 09:09 | disposition home or self-care (01) ==
PROVIDERS: PCP Student in an Organized Health Care Education/Training Program; Visit Provider Physical Medicine & Rehabilitation
DX: G56.03 Carpal tunnel syndrome, bilateral upper limbs (principal)
CPT/HCPCS: 99213

== ENCOUNTER → 2023-07-19 08:53 | Outpatient (BNVA) | payer MEDICAID, SELFPAY | PROVIDERS: PCP Student in an Organized Health Care Education/Training Program; Visit Provider Physical Medicine & Rehabilitation | DX: G56.03 Carpal tunnel syndrome, bilateral upper limbs (principal) | CPT/HCPCS: 99212 ==

== ENCOUNTER 2023-07-26 14:15 | Outpatient (AMB) | payer OTHER, MEDICAID, SELFPAY ==
[2023-07-26 14:18] VITALS: BMI 34.4
--- NOTE | 2023-07-26 14:18 | A.OFFVIS_ITS ---
Intake Vital Signs 07/26/23 14:18 Height 5 ft 10 in Weight 240 lb BMI 34.4 Intake Visit Reasons: Pre-Lt Knee 08/03/23 Intake Note: Ranjit is a 37 year old male who presents with complaints of left knee pain and giving way. Patient describes his pain as sharp in nature. Most of the pain is along the medial aspect of his knee. His symptoms have gotten worse in spite of continued non operative treatments. He has tried Tylenol and anti-inflammatory medicines which gave him minimal relief. The patient states that at times his left knee feels like it will give out. The patient was scheduled to undergo left knee arthroscopic surgery. The patient states that his was recently diagnosed with breast cancer any wishes to hold off on surgery for now. 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 Shayan Hernandez presents with left knee pain and mechanical symptoms due to a tear of his medial meniscus. I had a lengthy discussion with the patient regarding the treatment options. The patient wishes to hold off on surgery for now. I have no problem with this. He will continue with his activity modifications. He will follow up with me on an as-needed basis should his symptoms not plateau at an unacceptable level over the next few months. I spent 19 minutes in reviewing the patient's records and imaging studies, seeing the patient and documenting in the medical record. Coding Level of Care Code Est Pt Level 2 (36930) Diagnoses Left knee pain M25.562
== END 2023-07-26 14:47 | disposition home or self-care (01) ==
PROVIDERS: PCP Student in an Organized Health Care Education/Training Program; Visit Provider Orthopaedic Surgery
DX: M25.562 Pain in left knee (principal)
CPT/HCPCS: 99024

== ENCOUNTER → 2023-07-26 14:15 | Outpatient (BNVA) | payer OTHER, MEDICAID, SELFPAY | PROVIDERS: PCP Student in an Organized Health Care Education/Training Program; Visit Provider Orthopaedic Surgery | DX: S83.242A Other tear of medial meniscus, current injury, left knee, initial encounter (principal) | CPT/HCPCS: 99212 ==

== ENCOUNTER 2023-10-05 06:14 | Emergency (ER) | payer OTHER, SELFPAY ==
[2023-10-05 06:22] VITALS: BP 129/80; PULSE 90; RESP 16; TEMP 36.8; O2SAT 96; BMI 34.4
--- NOTE | 2023-10-05 07:12 | ED.BACK ---
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 No numbness, tingling, weakness. No bowel or bladder incontinence. No fevers, chills. Taking ibuprofen, lidoderm at home with continued symptoms. Related Data Previous Rx's ?Medication ?Instructions ?Recorded acetaminophen 500 mg tablet 500 mg PO Q6H PRN fever or pain 03/21/23 (Tylenol Extra Strength) #14 tabs cyclobenzaprine 10 mg tablet 10 mg PO TID PRN muscle spasm #15 10/05/23 tabs prednisone 20 mg tablet 60 mg (3 x 20 mg) PO DAILY #15 tabs 10/05/23 Allergies Allergy/AdvReac Type Severity Reaction Status Date / Time No Known Allergies Allergy Verified 10/05/23 06:25 Review of Systems Review of Systems: Yes all other systems are reviewed and are negative Constitutional: Constitutional: Reports no additional constitutional complaints, Denies body ache(s), Denies chills, Denies fever(s), Denies headache(s) and Denies weakness Eyes: Eyes: Reports no additional eye complaints and Denies change in vision ENT: Reports system reviewed and no additional complaints, except as documented, Denies dizziness, Denies headache(s), Denies nasal congestion, Denies nasal discharge and Denies neck pain Cardiovascular: Cardiovascular: Reports no additional cardiovascular complaints, Denies chest pain, Denies leg edema and Denies dyspnea Respiratory: Respiratory: Reports no additional respiratory complaints, Denies cough and Denies dyspnea Gastrointestinal: Gastrointestinal: Reports no additional gastrointestinal complaints, Denies abdominal pain, Denies diarrhea, Denies nausea and Denies vomiting Genitourinary: Genitourinary: Denies urinary incontinence Musculoskeletal: Musculoskeletal: Reports no additional musculoskeletal complaints, Reports back pain, Denies arthralgias, Denies joint swelling, Denies neck pain, Denies numbness, Reports radiating pain into limb and Denies tingling Integumentary/Breasts: Skin/Breast: Reports system reviewed and no additional complaints, except as docu and Denies rash Neurologic: Reports system reviewed and no additional complaints, except as documented, Denies Abnormal speech present, Denies dizziness, Denies headache(s), Denies numbness, Denies tingling and Denies weakness PMFSH Past Medical History Attestation statement: The following information was validated with the patient. 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 Physical Exam Vital Signs: Vital Signs: Last Vital Signs Temp 98.2 F 10/05/23 06:22 Pulse 90 10/05/23 06:22 Resp 16 10/05/23 06:22 BP 129/80 10/05/23 06:22 Pulse Ox 96 10/05/23 06:22 O2 Del Method Room Air 10/05/23 06:22 BMI result Body Mass Index 34.4 Const: General: cooperative, healthy appearing, comfortable and no acute distress Orientation/consciousness: patient oriented x3 Limitations: no limitations HEENT: Head: Yes normal to inspection Ears: hearing grossly normal bilaterally General nose exam: Normal external nose present Face and sinus: Yes normal facial exam Mouth: Normal oral and palatal mucosa present Throat: Yes posterior oropharynx normal Eyes: General: appearance normal, both eyes and all related structures Pupils: Equal, round and reactive pupils present Neck: Neck: Yes normal visual inspection Chest: Chest palpation & inspection: normal inspection of the chest Resp: Effort & Inspection: normal respiratory effort Auscultation: clear to auscultation bilaterally Cardio: Rate: regular rate Rhythm: regular rhythm Peripheral pulses: Peripheral pulses 2+ throughout GI: Inspection: Yes normal to inspection Palpation (GI): Soft to palpation and nontender Auscultation: normal bowel sounds Back/Spine/Pelvis: Other: TTP to left Si joint worsened with flexion/extension lumbar spine. No midline lumbar tenderness/step offs or deformities Thoracic/Lumbar Spine: thoracic and lumbar spine normal to inspection Skin: General skin exam: no rashes or lesions noted Neuro: General: patient oriented x3, no focal motor deficits and normal sensation to monofilament Cranial nerves: Yes Equal, round and reactive pupils present Cognition (Neuro): normal cognition Speech: No Abnormal speech present Gait exam (Neuro): Normal gait present Motor exam (neuro): 5/5 motor strength present throughout Sensory Exam: Normal double simultaneous stimulation for sensation Deep tendon reflexes (DTR's): Right patellar reflex intensity grade: 2+ and Left patellar reflex intensity grade: 2+ Extrem: General: Yes normal to inspection Medical Decision Making Medical Decision Making MDM Narrative: 38 yo male with history of arthritis here with complaints of left lower back pain with radiation of pain down the left leg since yesterday which 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 No numbness, tingling, weakness. No bowel or bladder incontinence. No fevers, chills. Taking ibuprofen, lidoderm at home with continued symptoms. TTP to left Si joint worsened with flexion/extension lumbar spine. No midline lumbar tenderness/step offs or deformities No neuro with no focal deficits. Likely sciatica vs lumbar radiculopathy vs sacroilitis. Low suspician for cord compression, caude equina, malignancy, epidural abscess, AAA, renal colic, pyelo Differential Diagnosis Differential Diagnoses: The differential diagnosis associated with the presentation includes Admission/Observation Consideration of admission/observation: Escalation of care including admission/observation considered Tests considered The following testing was considered but not selected: Low suspician for cord compression, caude equina, malignancy, epidural abscess, AAA, renal colic, pyelo requiring advanced imaging Low suspician for trauma requiring x-ray imaging Prescription Management I considered prescription management with: Pain Medication Discharge Plan Discharge Clinical Impression: Sciatica Patient Disposition: Home, Self-Care Instructions: Sciatica (ED) Additional Instructions: Gentle stretching No heavy lifting or bending Heat or ice Follow-up with your primary care doctor for any continued pain as you may need additional imaging Return for any incontinence of urine or stool, fevers or chills Continue ibuprofen/lidoderm patches Prescriptions: New cyclobenzaprine 10 mg tablet 10 mg PO TID PRN (Reason: muscle spasm) Qty: 15 0RF prednisone 20 mg tablet 60 mg PO DAILY Qty: 15 0RF No Action acetaminophen [Tylenol Extra Strength] 500 mg tablet 500 mg PO Q6H PRN (Reason: fever or pain) Qty: 14 0RF Referrals: Yadi Hyatt MD [Primary Care Provider] - 1 week Stand Alone Forms: Work/School Release Print Language: [place]
[2023-10-05 07:36] VITALS: BP 124/79; PULSE 80; RESP 16; TEMP 36.6; O2SAT 98
== END 2023-10-05 07:36 | disposition home or self-care (01) ==
PROVIDERS: Emergency Provider Emergency Medicine; PCP Student in an Organized Health Care Education/Training Program
DX: M54.40 Lumbago with sciatica, unspecified side (principal)
CPT/HCPCS: 99282; 99283

== ENCOUNTER 2023-11-21 09:31 | Emergency (ER) | payer OTHER, SELFPAY ==
--- NOTE | ~2023-11-21 | XR_ITS ---
EXAMINATION: XR LUMBOSACRAL SPINE CLINICAL INFORMATION: Pain, work injury. COMPARISON: Radiograph lumbar spine 10/30/2022. TECHNIQUE: Three views of the lumbosacral spine. FINDINGS: Redemonstration of transitional anatomy with sacralization of L5. Stable compression deformity at L4. No evidence of acute compression deformity. Unchanged trace retrolisthesis at L4-L5. No evidence of acute subluxation. Unchanged moderate to severe intervertebral disc height loss at L3-L4 and L4-L5. Stable significant facet arthropathy at L4-L5 with neural foraminal encroachment. Redemonstration of small multilevel anterior marginal osteophytes more prominent at L3-L4. Symmetric SI joints. No significant paraspinal soft tissue abnormality. XR/XR lumbar spine 2-3V IMPRESSION: 1. Transitional anatomy with sacralization of L5. 2. Stable compression deformity at L4. 3. No evidence of acute compression deformity. 4. Unchanged trace retrolisthesis at L4-L5. 5. Unchanged moderate to severe lumbar spondylosis at L3-L4 and L4-L5.
[2023-11-21 09:35] VITALS: BP 127/76; PULSE 82; RESP 16; TEMP 36.7; O2SAT 100; BMI 33.5
--- NOTE | 2023-11-21 10:17 | ED.GENADULT ---
HPI - General Adult General Chief complaint: Back Pain/Injury Stated complaint: back inj @ work 11/19 Time Seen by Provider: 11/21/23 09:58 Source: patient Mode of arrival: ambulatory Limitations: no limitations History of Present Illness ED Provider: Florin Hood PA-C HPI narrative: 38 year old male pmh sciatica, obesity, carpal tunnel, asthma presents with left sided lower back pain following an injury at work yesterday. 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 Patient denies fall or head strike. The patient reports a pinching lower back pain on the left side of the lumbar region that is worse with extension and makes laying and ambulating difficult due to pain. Denies radiation. Patient denies numbness, tingling, weakness, changes to bowel/bladder habits, saddle anesthesias, fever, chills, chest pain, sob. Patient states he took prednisone this morning which only helped mildly. Related Data Previous Rx's ?Medication ?Instructions ?Recorded acetaminophen 500 mg tablet 500 mg PO Q6H PRN fever or pain 03/21/23 (Tylenol Extra Strength) #14 tabs cyclobenzaprine 10 mg tablet 10 mg PO TID PRN muscle spasm #15 10/05/23 tabs prednisone 20 mg tablet 60 mg (3 x 20 mg) PO DAILY #15 tabs 10/05/23 acetaminophen 325 mg capsule 650 mg (2 x 325 mg) PO Q4H PRN 11/21/23 (Tylenol) pain #30 caps cyclobenzaprine 10 mg tablet 10 mg PO BEDTIME PRN muscle spasm 11/21/23 #7 tabs lidocaine 5 % topical patch 1 patch topical DAILY PRN pain #15 11/21/23 ea prednisone 20 mg tablet 20 mg PO DAILY 5 days #5 tabs 11/21/23 Allergies Allergy/AdvReac Type Severity Reaction Status Date / Time meloxicam AdvReac Numbness Verified 11/21/23 09:36 Review of Systems Review of Systems: Constitutional : No Weight loss, No Fever, No Chills, ENT/Mouth : No Hearing loss, No Ear Pain, No Nasal Congestion, No Sinus Pain, No Hoarseness, No sore throat, No Rhinorrhea, No Swallowing Difficulty Cardiovascular : No Chest Pain, No SOB Respiratory : No Cough, No Dyspnea Gastrointestinal : No Nausea, No Vomiting, No Diarrhea, No abdominal Pain, No Hematochezia, No Melena Genitourinary : No Dysuria, No Urinary Frequency, No Hematuria, No Urinary Incontinence, Musculoskeletal : positive back pain Skin : No Skin Lesions, No rash Neuro : No Weakness, No Numbness, No Paresthesias, no loss of bowel or bladder incontinence, no saddle anesthesia Yes all other systems are reviewed and are negative [facility] Past Medical History Attestation statement: The following information was validated with the patient. 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 Appearance: Alert.? Oriented X3.? No acute distress.? Head: Normocephalic, atraumatic, no step-offs or deformities Neck: Normal inspection.? Neck supple.? CVS: Normal heart rate and rhythm.? Pulses normal.? Respiratory: No respiratory distress.? Breath sounds normal.? Abdomen: Soft and nontender.? Skin: Skin warm and dry.? Normal skin color.? Normal skin turgor.? Extremities: No lower extremity edema.? No calf ttp. 5/5 strength to bilateral upper and lower extremities Back: Tenderness to palpation of left sided paraspinous muscles in lumbar region. Full ROM with discomfort in lumbar back. No midline tenderness, no C-spine tenderness. Neuro: Oriented X 3.? No motor deficit.? No sensory deficit. CN 2-12 intact . No saddle anesthesias, ambulating w/ steady gait. Medications Administered Discontinued Medications Generic Name Dose Route Start Last Admin Trade Name Ivan PRN Reason Stop Dose Admin Acetaminophen 975 mg 11/21/23 10:32 11/21/23 11:01 Acetaminophen 325 Mg Tablet PO 11/21/23 10:33 975 mg ONCE ONE Administration Lidocaine 2 patch 11/21/23 10:46 11/21/23 11:01 Lidocaine 4 % Patch Adh..Patch TRANSDERMA 11/21/23 10:47 2 patch ONCE ONE Administration Protocol Medical Decision Making Medical Decision Making MDM Narrative: 1015 38 yo male pmh sciatica presenting with left sided lumbar region back pain status post work injury where he went from sitting to standing while holding a rope. PE:Back: Tenderness to palpation of left sided paraspinous muscles in lumbar region. Full ROM with discomfort in lumbar back. No midline tenderness, no C-spine tenderness. Differential: Back strain vs sciatica vs lumbar radiculopathy. Unlikely fracture or dislocation, cord compression, cuada equina, , epidural abscess, malignancy, AAA. Plan: Imaging, pain management Differential Diagnosis Differential Diagnoses: The differential diagnosis associated with the presentation includes Back strain vs sciatica vs lumbar radiculopathy. Unlikely fracture or dislocation, cord compression, cuada equina, , epidural abscess, malignancy, AAA. Admission/Observation Consideration of admission/observation: Escalation of care including admission/observation considered (unlikely) Independent Interpretation I performed an independent interpretation of an: Plain X-Ray ( XR/XR lumbar spine 2-3V IMPRESSION: 1. Transitional anatomy with sacralization of L5. 2. Stable compression deformity at L4. 3. No evidence of acute compression deformity. 4. Unchanged trace retrolisthesis at L4-L5. 5. Unchanged moderate to severe lumbar spondylosis at L3-L4 and L4-L5.) Radiology Impression Discussion of test interpretation with radiology: I have reviewed the radiologist's reading. External Record Review External record reviewed: Inpatient record, Office record, Outpatient record, Prior outpatient labs, Prior outpatient radiology, Primary care record and Outside ED record Chronic Conditions Patient?s care impacted by: Other (Obesity, asthma) Critical Care Time Critical Care Time Critical Care Time: No Discharge Plan Discharge Clinical Impression: Lower back pain, Work related injury Patient Disposition: Home, Self-Care Instructions: Acute Low Back Pain (ED), Back Pain (ED) Additional Instructions: Take your medications as prescribed. If you were prescribed antibiotics today, it is important that you take your medication to their entirety, do not skip any doses, do not finish them early. Follow-up with your primary care provider this week. Return to the emergency department with new or worsening symptoms. Such as fevers, chills, chest pain, shortness of breath, nausea, vomiting, dizziness, headache, vision changes, lethargy In case of emergency call 911 Cyclobenzaprine is a muscle relaxer it is strong and can make you drowsy. Do not take with sedatives or any other muscle relaxers or alcohol. Do not drive or operate machinery while taking this. Do not share this medication with anyone. Prescriptions: New acetaminophen [Tylenol] 325 mg capsule 650 mg PO Q4H PRN (Reason: pain) Qty: 30 0RF cyclobenzaprine 10 mg tablet 10 mg PO BEDTIME PRN (Reason: muscle spasm) Qty: 7 0RF lidocaine 5 % adhesive patch,medicated 1 patch topical DAILY PRN (Reason: pain) Qty: 15 0RF Rx Instructions: leave on most painful area for up to 12 hrs prednisone 20 mg tablet 20 mg PO DAILY 5 Days Qty: 5 0RF No Action acetaminophen [Tylenol Extra Strength] 500 mg tablet 500 mg PO Q6H PRN (Reason: fever or pain) Qty: 14 0RF cyclobenzaprine 10 mg tablet 10 mg PO TID PRN (Reason: muscle spasm) Qty: 15 0RF prednisone 20 mg tablet 60 mg PO DAILY Qty: 15 0RF Referrals: [facility] [Provider Group] - 1 week [facility] [Provider Group] - 1 day Yadi Hyatt MD [Primary Care Provider] - 2 days Stand Alone Forms: Work/School Release Interventions: ED Discharge Assessment Last Done: 11/21/23 11:36 Discharge Date/Time: 11/21/23 11:30 Print Language: Luxembourgish
[2023-11-21] MEDS: Lidocaine 4 % Patch ADH..PATCH 2 PATCH TRANSDERMA (11:01)
[2023-11-21] MEDS: Acetaminophen 325 MG TABLET 975 MG PO (11:01)
[2023-11-21 11:36] VITALS: BP 127/76; PULSE 82; RESP 16; TEMP 36.7; O2SAT 100
== END 2023-11-21 11:30 | disposition home or self-care (01) ==
PROVIDERS: Emergency Provider Emergency Medicine; PCP Student in an Organized Health Care Education/Training Program
DX: Z04.2 Encounter for examination and observation following work accident (principal); M54.50 Low back pain, unspecified
CPT/HCPCS: 72100; 99283

== ENCOUNTER 2024-03-07 16:31 | Outpatient (REF) | payer OTHER, SELFPAY ==
[2024-03-08 13:33] LABS: H Pylori Breath Test Negative (Negative)
== END 2024-03-07 16:32 | disposition home or self-care (01) ==
LOC: HO.HHCLNP 16:31
PROVIDERS: Visit Provider Student in an Organized Health Care Education/Training Program
DX: A04.8 Other specified bacterial intestinal infections (principal)
CPT/HCPCS: 83013

== ENCOUNTER 2024-03-11 09:55 | Outpatient (AMB) | payer OTHER, SELFPAY ==
[2024-03-11 09:59] VITALS: BMI 33.5
--- NOTE | 2024-03-11 09:59 | A.OFFVIS_ITS ---
Vital Signs 03/11/24 09:59 Height 5 ft 11 in Weight 240 lb BMI 33.5 Intake Visit Reasons: Pre- Left knee WC Intake Note: Ranjit is a 37 year old male who presents with complaints of progressively worsening left knee pain and giving way. The patient states that he injured his knee while working in the past. He denies any pain or mechanical symptoms in his knee prior to that work injury. The patient was scheduled for left knee arthroscopic surgery in the past to treat his medial meniscus tear. That surgery was previously approved by his workman's compensation insurance. The patient had to cancel his surgery to help care for his . He states that his symptoms have gotten progressively worse since that time. He has done physical therapy exercises which aggravated his pain. He has also tried Tylenol and anti-inflammatory medicines which gave him minimal relief. He states that his left knee will give out several times per day. 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 Allergies meloxicam Adverse Reaction (Verified 03/11/24 10:03) Numbness Medication List - Last Reconciled 03/12/24 by Mark Alba MD acetaminophen (Tylenol) 650 mg (2 x 325 mg) PO Q4H PRN acetaminophen (Tylenol Extra Strength) 500 mg PO Q6H PRN cyclobenzaprine 10 mg PO BEDTIME PRN cyclobenzaprine 10 mg PO TID PRN lidocaine 5% 1 patch topical DAILY PRN prednisone 20 mg PO DAILY 5 days prednisone 60 mg (3 x 20 mg) PO DAILY PFSH Medical History Carpal tunnel syndrome on both sides Asthma Surgical History Surgical history unknown Social History Alcohol intake: current Alcohol intake frequency: holidays/special occasions only Substance Use Type: Marijuana Current occupational status: employed 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 Physical Exam Vital Signs: BMI result Body Mass Index 33.5 Const Other: Well-nourished well-developed very friendly male awake alert and oriented x3 in no acute distress Extrem Other: Bilateral lower extremity examination shows good capillary refill, no skin lesions noted, normal sensation light touch Left knee examination shows a minimal effusion, minimal crepitus with range of motion, tenderness along his medial joint line, positive Kota's test, no instability Results Reviewed Results Reviewed: MRI of the patient's left knee shows minimal diffuse degenerative changes as well as a tear of the medial meniscus Assessment & Plan Assessment & Plan (1) Tear of medial meniscus of left knee: Code(s): S83.242A - Other tear of medial meniscus, current injury, left knee, initial encounter Category: Medical Plan Mr. Shayan Hernandez presents with progressively worsening left knee pain and mechanical symptoms due to a medial meniscus tear. I had a lengthy discussion with the patient regarding the treatment options. The patient has failed continued non operative treatments. The risks and benefits of left knee arthroscopic surgery were discussed at length with the patient. The patient wishes to proceed with surgery. Surgery will most likely involve left knee diagnostic arthroscopy with arthroscopic partial medial meniscectomy. The patient will be scheduled for next available date. He will follow-up as instructed. I spent 21 minutes in reviewing the patient's records and imaging studies, seeing the patient and documenting in the medical record. Coding Level of Care Code Est Pt Level 3 (64445) Complex EM visit Add On G2211 Diagnoses Tear of medial meniscus of left knee S83.242A
== END 2024-03-11 10:28 | disposition home or self-care (01) ==
LOC: HO.HOS 09:55
PROVIDERS: PCP Student in an Organized Health Care Education/Training Program; Visit Provider Orthopaedic Surgery
DX: S83.242A Other tear of medial meniscus, current injury, left knee, initial encounter (principal); Z04.2 Encounter for examination and observation following work accident
CPT/HCPCS: 99213; G2211

== ENCOUNTER → 2024-03-11 09:55 | Outpatient (BNVA) | payer OTHER, SELFPAY | PROVIDERS: PCP Student in an Organized Health Care Education/Training Program; Visit Provider Orthopaedic Surgery | DX: S83.242A Other tear of medial meniscus, current injury, left knee, initial encounter (principal) | CPT/HCPCS: 99212 ==

== ENCOUNTER 2024-04-17 08:04 | Outpatient (AMB) | payer OTHER, SELFPAY ==
--- NOTE | 2024-04-17 08:09 | A.OFFVIS_ITS ---
Vital Signs 04/17/24 08:18 Height 5 ft 11 in Weight 240 lb BMI 33.5 Intake Visit Reasons: Left knee pain and giving way Intake Note: Ranjit is a 37 year old male who presents with complaints of progressively worsening left knee pain and giving way. The patient states that he injured his knee while working in the past. He denies any pain or mechanical symptoms in his knee prior to that work injury. The patient was scheduled for left knee arthroscopic surgery in the past to treat his medial meniscus tear. That surgery was previously approved by his workman's compensation insurance. The patient had to cancel his surgery to help care for his . He states that his symptoms have gotten progressively worse since that time. He has done physical therapy exercises which aggravated his pain. He has also tried Tylenol and anti-inflammatory medicines which gave him minimal relief. He states that his left knee will give out several times per day. 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 Allergies meloxicam Adverse Reaction (Verified 04/17/24 08:18) Numbness Medication List - Last Reconciled 04/17/24 by Mark Alba MD acetaminophen (Tylenol) 650 mg (2 x 325 mg) PO Q4H PRN acetaminophen (Tylenol Extra Strength) 500 mg PO Q6H PRN cyclobenzaprine 10 mg PO BEDTIME PRN cyclobenzaprine 10 mg PO TID PRN lidocaine 5% 1 patch topical DAILY PRN PFSH Medical History Carpal tunnel syndrome on both sides Asthma Surgical History Surgical history unknown Social History Alcohol intake: current Alcohol intake frequency: holidays/special occasions only Substance Use Type: Marijuana Current occupational status: employed 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 Physical Exam Vital Signs: BMI result Body Mass Index 33.5 Const Other: Well-nourished well-developed very friendly male awake alert and oriented x3 in no acute distress Extrem Other: Bilateral lower extremity examination shows good capillary refill, no skin lesions noted, normal sensation light touch Left knee examination shows a minimal effusion, minimal crepitus with range of motion, tenderness along his medial joint line, positive Kota's test, no instability Results Reviewed Results Reviewed: Standing full weight-bearing x-rays of the patient's left knee show minimal joint space narrowing, no acute bony abnormalities MRI of the patient's left knee shows mild diffuse degenerative changes as well as a tear of his medial meniscus, no acute bony abnormalities Assessment & Plan Assessment & Plan (1) Tear of medial meniscus of left knee: Code(s): S83.242A - Other tear of medial meniscus, current injury, left knee, initial encounter Category: Medical Plan Mr. Shayan Hernandze presents with progressively worsening left knee pain and mechanical symptoms due to a medial meniscus tear. I had a lengthy discussion with the patient regarding the treatment options. At this point he has failed continued non operative treatments. The risks and benefits of left knee arthroscopic surgery were discussed at length with the patient. The patient wishes to proceed with surgery. Surgery will most likely involve left knee diagnostic arthroscopy with arthroscopic partial medial meniscectomy. The patient was given a prescription for oxycodone at his preoperative appointment. He will follow-up as instructed. Feel free to call me at any time should questions regarding his orthopedic management arise. I spent 22 minutes in reviewing the patient's records and imaging studies, seeing the patient and documenting in the medical record. Medications: New oxycodone Partial Fill upon patient request. 5 mg PO Q6H PRN 20 tabs 0RF pain Coding Level of Care Code Est Pt Level 3 (22983) Complex EM visit Add On G2211 Diagnoses Tear of medial meniscus of left knee S83.242A
[2024-04-17 08:18] VITALS: BMI 33.5
== END 2024-04-17 08:27 | disposition home or self-care (01) ==
LOC: HO.HOS 08:04
PROVIDERS: PCP Student in an Organized Health Care Education/Training Program; Visit Provider Orthopaedic Surgery
DX: S83.242A Other tear of medial meniscus, current injury, left knee, initial encounter (principal)
CPT/HCPCS: 99213; G2211

== ENCOUNTER → 2024-04-17 08:04 | Outpatient (BNVA) | payer OTHER, SELFPAY | PROVIDERS: PCP Student in an Organized Health Care Education/Training Program; Visit Provider Orthopaedic Surgery | DX: S83.242A Other tear of medial meniscus, current injury, left knee, initial encounter (principal) | CPT/HCPCS: 99212 ==

== ENCOUNTER 2024-04-25 06:03 | Day surgery (SDC) | payer OTHER, SELFPAY ==
[2024-04-23 09:35] VITALS: BMI 33.5
--- NOTE | 2024-04-23 14:41 | P.CONAN_ITS ---
Documented by User: Juanis Estrada NP 04/23/24 14:42 HPI - Anesthesia Eval Consult details Narrative: 38yo M for Left Knee Arthroscopy with partial medial meniscectomy PMF Active Problems Active Problems: All Active Problems Tear of medial meniscus of left knee (Acute) Obesity (BMI 30-39.9) (Acute) Left knee pain (Acute) Carpal tunnel syndrome on both sides (Acute) Past Medical History Medical History Carpal tunnel syndrome on both sides Asthma Surgical History Surgical History Surgical history unknown Social History Social History Alcohol intake: current Alcohol intake frequency: holidays/special occasions only Patient Tobacco Use Status: Current everyday Tobacco user Tobacco use type: Cigarette Cigarettes Per Day: 8 Smoked in Last 30 Days: Yes Use of substances other than those prescribed or required for medical reasons: Yes Substance Use Type: Marijuana Substance Use Type Other:: Last smoked this morning Substance Use Frequency: Daily Advance Directives: No Advance Directives Information Provided: Yes Current occupational status: employed 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 Meds Allergies Allergy/AdvReac Type Severity Reaction Status Date / Time meloxicam AdvReac Numbness Verified 04/25/24 06:21 Active Medications: Current Medications Cefazolin Sodium/Dextrose (Ancef) 2 gm in 50 mls @ 100 mls/hr IV PREOP ONE Stop: 04/25/24 06:25 Exam Height,Weight and Vital Signs: Height 5 ft 11 in Weight 108.862 kg Assessment and Plan Assessment Anesthesia Assessment: Chart Reviewed Documented by User: Xiao Haile MD 04/25/24 08:02 PMFSH Past Medical History Medical History Carpal tunnel syndrome on both sides Asthma Family History Family history of problems with anesthesia: No Surgical History Surgical History Surgical history unknown History of Problems with Anesthesia: No Social History Social History Alcohol intake: current Alcohol intake frequency: holidays/special occasions only Patient Tobacco Use Status: Current everyday Tobacco user Tobacco use type: Cigarette Cigarettes Per Day: 8 Smoked in Last 30 Days: Yes Use of substances other than those prescribed or required for medical reasons: Yes Substance Use Type: Marijuana Substance Use Type Other:: Last smoked this morning Substance Use Frequency: Daily Advance Directives: No Advance Directives Information Provided: Yes Current occupational status: employed Current occupation: [employer]/ rt hand Meds Allergies Allergy/AdvReac Type Severity Reaction Status Date / Time meloxicam AdvReac Numbness Verified 04/25/24 06:21 Exam Airway Mallampati Class: II TM Dist: >3cm Neck ROM: Full Heart: rrr Lungs: cta Assessment and Plan Final Anesthetic Review Family History of Problems with Anesthesia: No History of Problems with Anesthesia: No NPO: Yes ASA Class: III (heavy cigarette and marihuana smoking) Final Preanesthetic Review: No Changes in Pt Med Stat, Meds/Allgs Chart Reviewed, Consent Obtained/Reviewed and Anes Risks/Benef Reviewed Patient Risk: Intermediate Procedure Risk: Low Anesthetic Plan Anesthetic Plan: GA Disposition: Standard PACU
[2024-04-25] VITALS (7 sets, daily range): BP systolic 121–154; BP diastolic 58–93; PULSE 65–80; RESP 12–16; TEMP 36.6–37.6; O2SAT 94–98; BMI 34.4
[2024-04-25] MEDS: Lactated Ringers 1,000 ML 100 ML IVCONT (06:50)
--- NOTE | 2024-04-25 08:45 | P.BOP_ITS ---
Brief Operative Note Date of Service: 04/25/24 Pre-op diagnosis: Left knee medial meniscus tear Post-op diagnosis: same Procedure: Left knee arthroscopic partial medial meniscectomy Implants: none Surgeon: Mark Alba MD Anesthesia: GLMA Was an Blood Bank Calendar Control Clerk used for this Procedure?: No Estimated blood loss (mL): 10 Pathology: none sent Condition: stable Disposition: PACU
--- NOTE | 2024-04-25 08:49 | P.OP_ITS ---
Operative Note Operative Note Date of Service: 04/25/24 Narrative: After the patient was identified as Ranjit Hernandez and his left knee was initialed by myself they were brought to the operating room where general anesthesia was induced by the anesthesiologist in routine fashion. The patient was given 2 g of IV Ancef preoperatively for infection prophylaxis. The patient's left lower extremity was prepped and draped in sterile fashion. A formal time-out was completed. Marcaine was injected into the planned incision sites as well as the patient's left knee joint. A #11 scalpel blade was used to make an anterolateral portal 1 cm proximal to the joint line and 1 cm lateral to the patellar tendon. Blunt trocar technique was used to enter the suprapatellar pouch with the knee in extension. There were no loose bodies or abnormalities found in either the medial or lateral gutters. The articular surface of the patella and the trochlear groove articular surface showed minimal degenerative changes. The patient's knee was flexed to 45 degrees and a valgus force was p laced upon it. The medial compartment was entered. An anteromedial portal was made 1 cm proximal to the joint line and 1 cm medial to the patellar tendon. Probing of the medial meniscus showed a radial tear of the posterior horn. A partial medial meniscectomy was performed using the arthroscopic shaver. Following the partial meniscectomy the remainder of the meniscus tissue was stable. There were no significant degenerative changes of the medial tibial plateau or medial femoral condyle articular surfaces. The patient's knee was placed into a neutral position. There was no injury to the anterior cruciate ligament. The patient's knee was then placed in the figure of 4 position and the lateral compartment was entered. There was no evidence of lateral meniscus tearing. There were no degenerative changes of the lateral femoral condyle and lateral tibial plateau. The patient's knee was once again brought into extension and the suprapatellar pouch was entered. The knee joint was irrigated and then drained. All arthroscopic instruments were removed. The 2 portals were closed with 3-0 nylon interrupted suture. The knee joint was injected with Marcaine. Dry sterile dressing and Jermaine bandages were placed over the patient's knee. The patient was awoken and extubated in the operating room. The patient was transferred to the recovery room in stable condition.
[2024-04-25] MEDS: cefTRIAXone sodium 1 GM VIAL IVPUSH (09:14)
== END 2024-04-25 10:05 | disposition home or self-care (01) ==
PROVIDERS: PCP Student in an Organized Health Care Education/Training Program; Visit Provider Orthopaedic Surgery
PROC: (CPT 29870; principal; 2024-04-25 07:30)
DX: S83.242A Other tear of medial meniscus, current injury, left knee, initial encounter (principal); M23.52 Chronic instability of knee, left knee; M17.12 Unilateral primary osteoarthritis, left knee; X58.XXXA Exposure to other specified factors, initial encounter; Y93.9 Activity, unspecified; Y92.69 Other specified industrial and construction area as the place of occurrence of the external cause; Y99.0 Civilian activity done for income or pay; J45.909 Unspecified asthma, uncomplicated; Z79.899 Other long term (current) drug therapy; Z88.8 Allergy status to other drugs, medicaments and biological substances; F17.210 Nicotine dependence, cigarettes, uncomplicated
CPT/HCPCS: 29881; J0131; J0171; J0690; J0696; J1100; J1885; J2003; J2250; J2405; J2704; J2795; J3010

== ENCOUNTER → 2024-04-25 06:03 | Outpatient (BNV) | payer OTHER, SELFPAY | PROVIDERS: PCP Student in an Organized Health Care Education/Training Program; Visit Provider Orthopaedic Surgery | DX: S83.242A Other tear of medial meniscus, current injury, left knee, initial encounter (principal) | CPT/HCPCS: 29881 ==

== ENCOUNTER 2024-05-08 09:21 | Outpatient (AMB) | payer OTHER, SELFPAY ==
--- NOTE | 2024-05-08 09:31 | MHC.OFFVIS ---
Intake Visit Reasons: PO-Lt Knee 04/25/24 Intake Note: Ranjit a 38 year old male who presents today for a post operative Lt Knee , DOS: 04/25/24 Patient reports he is doing well, states most of his discomfort comes at night. He finds relief with cyclobenzaprine and his cold unit. States he has not really needed his post operative pain medication. Allergies meloxicam Adverse Reaction (Verified 05/08/24 09:33) Numbness Medication List - Last Reconciled 05/08/24 by Ruben Marcus PA-C acetaminophen (Tylenol Extra Strength) 500 mg PO Q6H PRN cyclobenzaprine 10 mg PO BEDTIME PRN lidocaine 5% 1 patch topical DAILY PRN oxycodone 5 mg PO Q6H PRN HPI HPI PO-Lt Knee 04/25/24 DR: Details: 38-year-old gentleman returns to the office today status post left knee arthroscopy with Dr. Peguero. He states he is doing well. He has minimal discomfort with daily activities. No concerns today. 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 No erythema no joint effusion. Range of motion is 0-95 degrees. Calf supple nontender. Neurovascularly intact. Results Reviewed Results Reviewed: Brief Operative Note Date of Service: 04/25/24 Pre-op diagnosis: Left knee medial meniscus tear Post-op diagnosis: same Procedure: Left knee arthroscopic partial medial meniscectomy Implants: none Surgeon: Mark Alba MD Assessment & Plan Assessment & Plan (1) Tear of medial meniscus of left knee: Code(s): S83.242A - Other tear of medial meniscus, current injury, left knee, initial encounter Category: Medical Plan Sutures removed today Steri-Strips applied. He will continue to increase activities as tolerated. He was given an order for physical therapy for range of motion quad strength and gait training. Expressed caution with high impact activities or cutting twisting or pivoting over the next 4-6 weeks. He will continue to remain out of work until he sees us back in [address] Alba sooner if needed. Coding Level of Care Code Global (75560) Diagnoses Tear of medial meniscus of left knee S83.242A
== END 2024-05-08 09:49 | disposition home or self-care (01) ==
PROVIDERS: PCP Student in an Organized Health Care Education/Training Program; Visit Provider Physician Assistant
DX: S83.242A Other tear of medial meniscus, current injury, left knee, initial encounter (principal)
CPT/HCPCS: 99024

== ENCOUNTER → 2024-05-08 09:21 | Outpatient (BNVA) | payer OTHER, SELFPAY | PROVIDERS: PCP Student in an Organized Health Care Education/Training Program; Visit Provider Physician Assistant | DX: S83.242D Other tear of medial meniscus, current injury, left knee, subsequent encounter (principal) | CPT/HCPCS: 99212 ==

== ENCOUNTER 2024-06-05 10:10 | Outpatient (AMB) | payer OTHER, SELFPAY ==
--- NOTE | 2024-06-05 10:15 | MHC.OFFVIS ---
Vital Signs 06/05/24 10:16 Height 5 ft 11 in Weight 247 lb BMI 34.4 Intake Visit Reasons: PO-4wk f.u -Lt Knee 04/25/24 Intake Note: Ranjit is a 38 year old male who presents with complaints of mild intermittent discomfort in his left knee after undergoing left knee arthroscopic surgery on 04/25/2024. He denies any fevers or chills. He continues to go to formal physical therapy. He is due to return to work on 06/25/2024. 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 Allergies meloxicam Adverse Reaction (Verified 06/05/24 10:16) Numbness Medication List - Last Reconciled 06/05/24 by Mark Alba MD acetaminophen (Tylenol Extra Strength) 500 mg PO Q6H PRN cyclobenzaprine 10 mg PO BEDTIME PRN lidocaine 5% 1 patch topical DAILY PRN oxycodone 5 mg PO Q6H PRN PFSH Medical History Carpal tunnel syndrome on both sides Asthma Surgical History Surgical history unknown Social History Alcohol intake: current Alcohol intake frequency: holidays/special occasions only Patient Tobacco Use Status: Current everyday Tobacco user Tobacco use type: Cigarette Cigarettes Per Day: 8 Substance Use Type: Marijuana Current occupational status: employed 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 He will continue going to formal physical therapy for now. He will gradually transition to a home exercise program. I am fine with him returning to work on June 2024. He will contact me prior to his follow-up appointment in 2 months should any questions or concerns arise. Feel free to call me at any time should questions regarding his orthopedic management arise. I spent 22 minutes in reviewing the patient's records and imaging studies, seeing the patient and documenting in the medical record. Medications: Changed From oxycodone Partial Fill upon patient request. 5 mg PO Q6H PRN 20 tabs 0RF pain To oxycodone Partial Fill upon patient request. 5 mg PO Q12H PRN 10 tabs 0RF pain Refilled cyclobenzaprine 10 mg PO BEDTIME PRN 10 tabs 0RF muscle spasm Coding Level of Care Code Global (95642) Diagnoses Left knee pain M25.562
[2024-06-05 10:16] VITALS: BMI 34.4
== END 2024-06-05 10:33 | disposition home or self-care (01) ==
PROVIDERS: PCP Student in an Organized Health Care Education/Training Program; Visit Provider Orthopaedic Surgery
DX: M25.562 Pain in left knee (principal)
CPT/HCPCS: 99024

== ENCOUNTER → 2024-06-05 10:10 | Outpatient (BNVA) | payer OTHER, SELFPAY | PROVIDERS: PCP Student in an Organized Health Care Education/Training Program; Visit Provider Orthopaedic Surgery | DX: M25.562 Pain in left knee (principal) | CPT/HCPCS: 99212 ==

== ENCOUNTER 2024-07-02 14:52 | Outpatient (RCR) | payer OTHER, SELFPAY ==
--- NOTE | 2024-05-27 14:51 | MHC.PT.EP ---
[facility] [place] Office [place] Office [place] Office [address] [place] [address] [phone] F: [phone] F: [phone] F: [phone] F: [phone] Physical Therapy Plan of Care Date of Evaluation: 05/27/24 Date of Surgery: 04/25/24 Diagnosis: Other tear of medial meniscus, Tear of medial meniscus of L knee - 04/25/24 Assessment: Ranjit is a 38 year old male who is referred to PT for other tear of medial meniscus, tear of medial meniscus of L knee - 04/25/24 . He is 1 month post op. He injured his knee secondary to a fall on black ice about 1 year back. On PT examination he presented with TTP over medial and lateral joint line, 3-5/10 pain in L knee with standing, walking, stairs and sitting for more than 40 minutes, decreased L knee ROM, decreased L LE strength, altered posture, gait and balance. He is independent with all ADLS but has pain with them. 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 He however has been out of work since the surgery. He would benefit from skilled PT to address the aforementioned impairments and improve tolerance to functional activities. Frequency and Duration: The patient will be seen 2/week for 5 weeks Short Term Goals: 1. Pt will have 50% decrease in pain which will enable him to sit without pain in 2 weeks. 2. Pt will be able to move his knee through full ROM without pain which will enable him to perform sit to stand and negotiate stairs without pain in 3 weeks Meeting/Event Planner Goals: 1. Pt will demonstrate an increase in muscle strength by 1 grade which will enable him to stand, walk and perform all ADLS without pain in 4 weeks. 2. Pt will be independent with all ADLS and return to PLOF in 5 weeks. Treatment Plan: Modalities to reduce pain, spasms and effusion. Manual therapy to restore motion and function. Therapeutic exercise to improve strength and flexibility. Neuromuscular re-education for posture and balance. Therapeutic activities to return to functional activities of daily living. Electronically signed by: Loli Macario PT DPT Please sign and return to therapist. Thank you for your referral.
--- NOTE | 2024-07-22 08:25 | MHC.PT.DC ---
[facility] [place] Office [place] [facility] [place] [facility] [address] [place] [address] [phone] F: [phone] F: [phone] F: [phone] F: [phone] Physical Therapy Discharge Report Diagnosis: Other tear of medial meniscus, Tear of medial meniscus of L knee - 04/25/24 Date of Surgery: 04/25/24 Date of Evaluation: 05/27/24 Date of Discharge: 07/22/24 Treatments to Date: 6 Cancellations to Date: 8 No Shows to Date: 1 Discharge Status: Visit Non-compliance Discharge Summary: Ranjit has had 8 cancels and 1 no show and attended only 6 visits since his evaluation which was done almost 2 months back. He is therefore being d/c from PT for non compliance. Electronically signed by: Loli Macario PT DPT Please sign and return to therapist. Thank you for your referral.
== END 2024-07-22 08:25 | disposition home or self-care (01) ==
LOC: HO.PT 14:52
PROVIDERS: PCP Student in an Organized Health Care Education/Training Program; Visit Provider Physician Assistant
DX: S83.242D Other tear of medial meniscus, current injury, left knee, subsequent encounter (principal)
CPT/HCPCS: 97110; 97161; 97530

== ENCOUNTER 2024-08-01 14:04 | Emergency (ER) | payer OTHER, SELFPAY ==
--- NOTE | ~2024-08-01 | US_ITS ---
CLINICAL HISTORY: pain Venous duplex ultrasound left lower extremity Comparison: None Findings: The visualized deep veins are fully compressible with normal Doppler color flow and spectral tracings. Incidentally noted fluid collection in the lateral knee suspicious for joint effusion or prepatellar fluid collection. IMPRESSION: 1. Negative for left lower extremity deep vein thrombosis. 2. Fluid collection in the lateral knee which may be a joint effusion or prepatellar fluid collection. This document has been electronically signed by: Rajinder Avery MD on 08/01/2024 19:29:43
--- NOTE | ~2024-08-01 | XR_ITS ---
EXAMINATION: XR KNEE, LEFT CLINICAL INFORMATION: pain COMPARISON: 03/21/2023. TECHNIQUE: Four views of the left knee. FINDINGS: No fracture, dislocation, or suspicious bone lesion. Normal bone mineralization. Normal alignment. Mild to moderate tricompartmental osteoarthritis. No significant joint effusion. Soft tissues appear normal. XR/XR knee LT 3V IMPRESSION: 1. No acute findings left knee. 2. Mild to moderate tricompartmental osteoarthrosis. Electronically signed by: Lam Martinez MD 08/01/2024 04:48 PM [facility]
[2024-08-01 15:02] VITALS: BP 169/94; PULSE 83; RESP 18; TEMP 36.8; O2SAT 98; BMI 34.4
--- NOTE | 2024-08-01 15:02 | ED_ITS ---
HPI - General Adult General Chief complaint: Extremity Problem Stated complaint: knee inj @ work Time Seen by Provider: 08/01/24 21:45 Source: patient Limitations: no limitations History of Present Illness ED Provider: Sherly Martinez PA-C HPI narrative: 28-year-old male with history of medial meniscal tear of the left knee status post repair on 04/25/2024, presents with ongoing discomfort and swelling. Patient states he attempted to return to work, but is unable to perform his work-related duties secondary to pain and swelling of the left knee. 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 Patient has a pending follow up with his orthopedic surgeon. Denies redness, warmth of the joint no fevers. Related Data Previous Rx's ?Medication ?Instructions ?Recorded acetaminophen 500 mg tablet 500 mg PO Q6H PRN fever or pain 03/21/23 (Tylenol Extra Strength) #14 tabs lidocaine 5 % topical patch 1 patch topical DAILY PRN pain #15 11/21/23 ea cyclobenzaprine 10 mg tablet 10 mg PO BEDTIME PRN muscle spasm 06/05/24 #10 tabs oxycodone 5 mg tablet 5 mg PO Q12H PRN pain #10 tabs 06/05/24 methylprednisolone 4 mg tablets in 4 mg PO QAM #1 ea 08/01/24 a dose pack (Medrol (Yordan)) Allergies Allergy/AdvReac Type Severity Reaction Status Date / Time meloxicam AdvReac Numbness Verified 08/01/24 15:05 Review of Systems Review of Systems: Yes all other systems are reviewed and are negative Constitutional: Constitutional: Denies fatigue and Denies fever(s) Musculoskeletal: Musculoskeletal: Reports arthralgias and Reports joint swelling Endocrine: Endocrine: Denies fatigue PMFSH Past Medical History Attestation statement: The following information was validated with the patient. 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 Physical Exam ED Vital Signs: Vital Signs - 24 hr 08/01/24 15:02 08/01/24 21:36 08/01/24 23:27 Temperature 98.2 F 98.0 F 98.0 F Pulse Rate 83 62 62 Respiratory Rate 18 16 16 Blood Pressure 169/94 H 144/100 H 144/100 H Pulse Oximetry 98 97 97 Oxygen Delivery Method Room Air Room Air Room Air BMI result Body Mass Index 34.4 Const Other: Alert well-appearing Orientation/consciousness: patient oriented x3 Resp Effort & Inspection: normal respiratory effort Cardio Other: Normal peripheral perfusion Skin Other: Warm dry no rash Neuro General: patient oriented x3, no focal motor deficits and CN's II-XI intact bilaterally Extrem Other: Able to flex and extend the left knee, no overlying erythema warmth, minimal swelling Psych Other: Cooperative Course Course Course Narrative: RME, this is a rapid medical exam performed by lOeg Black please refer to primary provider for complete H&P- 38 year old male presents for evaluation of left knee pain. He has a left knee arthroscopy with partial meniscectomy on 04/25/[address] Alba. He reports worsening pain since returning to work. Plan for xray of the knee and ultrasound of the lower extremity Reevaluation(s) Reevaluation #1: 08/02/2024 1245 Luna Ortega PA-C ----> Patient re-presented to the departm ent asking his diagnosis be changed from osteoarthritis of the left knee to knee pain and he be given a work note until 08/05/2024. I corrected these things per the patient's request and provided him new discharge instructions + work note. Medications Administered Discontinued Medications Generic Name Dose Route Start Last Admin Trade Name Freq PRN Reason Stop Dose Admin Methylprednisolone 8 mg 08/01/24 22:26 08/01/24 22:42 Methylprednisolone 4 Mg Tablet PO 08/01/24 22:27 8 mg ONCE ONE Administration Medical Decision Making Medical Decision Making MDM Narrative: 28-year-old male with history of medial meniscal tear of the left knee status post repair on 04/25/2024, presents with ongoing discomfort and swelling. Patient states he attempted to return to work, but is unable to perform his work-related duties secondary to pain and swelling of the left knee. 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 Patient has a pending follow up with his orthopedic surgeon. Denies redness, warmth of the joint no fevers. Problem: Recent surgery History: Per patient I have considered the following differential diagnoses: Septic effusion, DVT, arthritis, fracture, dislocation Plan: An x-ray and ultrasound were obtained from triage, there was no DVT, the patient has significant arthritis, with mild effusion. This is not a septic joint, it is not red, hot and he has full range of motion of the joint. Fracture and dislocation were least likely on my differential given there was no new trauma. The patient has a appropriate follow up, we will send with a steroid taper. I have independently reviewed the following tests: X-ray left knee: XR/XR knee LT 3V IMPRESSION: 1. No acute findings left knee. 2. Mild to moderate tricompartmental osteoarthrosis. Electronically signed by: Lam Martinez MD 08/01/2024 04:48 PM [facility] DVT study left lower extremity:IMPRESSION: 1. Negative for left lower extremity deep vein thrombosis. 2. Fluid collection in the lateral knee which may be a joint effusion or prepatellar fluid collection. This document has been electronically signed by: Rajinder Avery MD on 08/01/2024 19:29:43 Discharge Plan Discharge Clinical Impression: Left knee pain Patient Disposition: Home, Self-Care Instructions: Knee Pain (ED) Additional Instructions: The x-ray revealed that you have significant arthritis in the left knee. You do not have a blood clot in the leg. See home care instructions. Use the Medrol Dosepak as directed, this is an anti-inflammatory. Keep your pending follow up with your orthopedic surgeon. Prescriptions: New methylprednisolone [Medrol (Yordan)] 4 mg tablets,dose pack 4 mg PO QAM Qty: 1 0RF No Action acetaminophen [Tylenol Extra Strength] 500 mg tablet 500 mg PO Q6H PRN (Reason: fever or pain) Qty: 14 0RF lidocaine 5 % adhesive patch,medicated 1 patch topical DAILY PRN (Reason: pain) Qty: 15 0RF Rx Instructions: leave on most painful area for up to 12 hrs cyclobenzaprine 10 mg tablet 10 mg PO BEDTIME PRN (Reason: muscle spasm) Qty: 10 0RF oxycodone 5 mg tablet 5 mg PO Q12H PRN (Reason: pain) Qty: 10 0RF Rx Instructions: Partial Fill upon patient request. Stand Alone Forms: Work/School Release Interventions: ED Discharge Assessment Last Done: 08/01/24 23:27 Discharge Date/Time: 08/01/24 23:27 Print Language: Georgian
[2024-08-01 21:36] VITALS: BP 144/100; PULSE 62; RESP 16; TEMP 36.7; O2SAT 97
--- NOTE | 2024-08-01 22:41 | PC.NURSE ---
pharmacy contacted to bring medication for pt to this rn.
[2024-08-01] MEDS: methylPREDNISolone 4 MG TABLET 8 MG PO (22:42)
[2024-08-01 23:27] VITALS: BP 144/100; PULSE 62; RESP 16; TEMP 36.7; O2SAT 97
== END 2024-08-01 23:27 | disposition home or self-care (01) ==
PROVIDERS: Emergency Provider Emergency Medicine; PCP Student in an Organized Health Care Education/Training Program
DX: S89.92XA Unspecified injury of left lower leg, initial encounter (principal); R60.0 Localized edema; M25.562 Pain in left knee; X58.XXXA Exposure to other specified factors, initial encounter; Y93.9 Activity, unspecified; Y92.9 Unspecified place or not applicable; Y99.0 Civilian activity done for income or pay; F17.210 Nicotine dependence, cigarettes, uncomplicated
CPT/HCPCS: 73562; 93971; 99284

== ENCOUNTER → 2024-08-01 15:02 | Outpatient (BNV) | payer OTHER, SELFPAY | PROVIDERS: PCP Student in an Organized Health Care Education/Training Program; Visit Provider Radiology Diagnostic Radiology | DX: M25.562 Pain in left knee (principal) | CPT/HCPCS: 73562; 93971 ==

== ENCOUNTER 2024-08-13 13:03 | Outpatient (AMB) | payer OTHER, SELFPAY ==
--- NOTE | 2024-08-13 13:24 | A.OFFVIS_ITS ---
Vital Signs 08/13/24 13:27 Height 5 ft 11 in Weight 247 lb BMI 34.4 Intake Visit Reasons: OV- Lt Knee 04/25/24 Intake Note: Ranjit is a 38 year old male who presents With complaints of intermittent discomfort in his left knee after undergoing left knee arthroscopic surgery on 04/25/2024. The patient states that he attempted to return to work on 07/28/2024. He had increased discomfort at that time. The patient states that he did not complete formal physical therapy and would like to return to physical therapy prior to going back to work. 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 Allergies meloxicam Adverse Reaction (Verified 08/13/24 13:27) Numbness Medication List - Last Reconciled 08/13/24 by Mark Alba MD acetaminophen (Tylenol Extra Strength) 500 mg PO Q6H PRN cyclobenzaprine 10 mg PO BEDTIME PRN lidocaine 5% 1 patch topical DAILY PRN methylprednisolone (Medrol (Yordan)) 4 mg PO QAM oxycodone 5 mg PO Q12H PRN PFSH Medical History Carpal tunnel syndrome on both sides Asthma Surgical History Surgical history unknown Social History Alcohol intake: current Alcohol intake frequency: holidays/special occasions only Patient Tobacco Use Status: Current everyday Tobacco user Tobacco use type: Cigarette Cigarettes Per Day: 8 Substance Use Type: Marijuana Current occupational status: employed 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 I did give him a prescription to go back to formal physical therapy. I will clear him to return to work once his discomfort and strength have improved. He will contact me prior to his follow-up appointment in 3 months should any questions or concerns arise. Feel free to call me at any time should questions regarding his orthopedic management arise. I spent 22 minutes in reviewing the patient's records and imaging studies, seeing the patient and documenting in the medical record. Orders: Orders PT Evaluation and Treatment Today M25.562 - Pain in left knee Coding Level of Care Code Est Pt Level 3 (58877) Complex EM visit Add On G2211 Diagnoses Left knee pain M25.562
[2024-08-13 13:27] VITALS: BMI 34.4
--- OUTSIDE RECORDS SUMMARY | 2024-08-13 16:03 | XMS_ITS | Clinical Summary ---
Author Organization [employer] Address [address] [place] [address] Care Team Providers Care Germination Worker Name Role Phone Yadi Hyatt MD Primary Care Pro vider Allergies No known active allergies Medications * This document contains information received from the source organization and may not represent a complete record from that organization. omeprazole (PriLOSEC) [address] capsuleIndicatio ns:Helicobacter Pylori Infection Take 1 capsule (20 mg) by mouth in the morning. Do not crush or chew. 90 capsule 3 Active famotidine (Pepcid) 20 MG tabletIndication s:Gastroesophage al reflux disease without esophagitis TAKE 1 TABLET BY MOUTH EVERYDAY AT BEDTIME 90 tablet 3 Active ibuprofen 600 MG tablet Take 600 mg by mouth every 8 (eight) hours if needed for mild pain. Active nicotine (Nicoderm CQ) 7 MG/24HR patch Place 1 patch on the skin 1 (one) time each day at the same time. 42 patch 1 4 Active albuterol 108 (90 Base) MCG/ACT inhalerIndicatio ns:Asthma, unspecified asthma severity, unspecified whether complicated, unspecified whether persistent,Numbn ess and tingling of hand Inhale 2 puffs every 4 (four) hours if needed for wheezing or shortness of breath. 18 g 2 4 03/07/20 25 Active traZODone (Desyrel) 50 MG tablet Take 1 tablet (50 mg) by mouth at bedtime. 30 tablet 1 4 Active cyclobenzaprine (Flexeril) 10 MG tablet Take 1 tablet (10 mg) by mouth 3 times daily for 10 days. 30 tablet 4 Active Active Problems Problem Noted Date Diagnosed Date Carpal tunnel syndrome 12/13/2022 Assessment & Plan (03/10/2023 8:06 PM EDT): bl hand/arm numbness -EMG 11/2022 shows mild compression of the median nerve at wrist bl with mild CTS, normal right C5-T1 muscle innervation -Continue using wrist brace to wear at night that has been helping, although he still has Sx during the day (night Sx improved). -Referred today to hand surgeon Assessment & Plan (12/13/2022 1:15 PM EDT): bl hand/arm numbness -EMG 11/2022 shows mild compression of the median nerve at wrist bl with mild CTS, normal right C5-T1 muscle innervation -gave today written prescription x #2 wrist brace to wear at night -will monitor at next visit Helicobacter pylori (H. pylori) infection 2022 Assessment & Plan (03/10/2023 8:10 PM EDT): Pt w GERD and bloating - w H pylori h pylori UBT 11/2022 + Denies previous hx of tx -will start quadriple macrolide based tx -explained possible SE of meds - all meds already prescribed. Pt has all ATB at home and refilled 90 d refill of Omeprazole, but pt understands he has to use 1 tab BID x 14 d only. -advised to avoid ETOH while taking ATBs -will repeat test in 3 months Assessment & Plan (12/13/2022 1:18 PM EDT): Pt w GERD and bloating - w H pylori h pylori UBT 11/2022 + Denies previous hx of tx -will start quadriple macrolide based tx -explained possible SE of meds -advised to avoid ETOH while taking ATBs -will repeat test in 3 months Chronic midline low back pain without sciatica 0 11/10/2022 Assessment & Plan (03/10/2023 8:19 PM EDT): -lumbar XR 09/2022 :There is transitional anatomy. Levels are designated with the last rib-bearing vertebral body designated as the transitional vertebral body. There is mild curvature of the mid lumbar spine to the right. Bone alignment is otherwise normal. No fracture or dislocation. There is degenerative disc disease and spondylosis at L3-L4 and L4-L5. Paraspinal soft tissues are unremarkable. IMPRESSION: Transitional anatomy. Mild scoliosis and degenerative changes. -Pt here w normal neuro exam ,only small patch of decrease sensation per pt in left leg ,no hx of back trauma There is a possibility for small hernia but currently no indication for MRI -pt refusing any further PT -pt states improving pain on current regimen -advised to continue tylenol prn x mild pain and meloxicam x mod pain but to try 1st w lidoderm patch and topical diclofenac -referred to orthopedic -may benefit from steroid inj ---01/2023 - gave info today to call and schedule apt. Assessment & Plan (12/13/2022 1:19 PM EDT): -lumbar XR 09/2022 :There is transitional anatomy. Levels are designated with the last rib-bearing vertebral body designated as the transitional vertebral body. There is mild curvature of the mid lumbar spine to the right. Bone alignment is otherwise normal. No fracture or dislocation. There is degenerative disc disease and spondylosis at L3-L4 and L4-L5. Paraspinal soft tissues are unremarkable. IMPRESSION: Transitional anatomy. Mild scoliosis and degenerative changes. -Pt here w normal neuro exam ,only small patch of decrease sensation per pt in left leg ,no hx of back trauma There is a possibility for small hernia but currently no indication for MRI -pt refusing any further PT -pt states improving pain on current regimen -advised to continue tylenol prn x mild pain and meloxicam x mod pain but to try 1st w lidoderm patch and topical diclofenac -referred to orthopedic -may benefit from steroid inj ---has apt x 01/2023 Assessment & Plan (11/10/2022 5:27 PM EDT): -lumbar XR 09/2022 :There is transitional anatomy. Levels are designated with the last rib-bearing vertebral body designated as the transitional vertebral body. There is mild curvature of the mid lumbar spine to the right. Bone alignment is otherwise normal. No fracture or dislocation. There is degenerative disc disease and spondylosis at L3-L4 and L4-L5. Paraspinal soft tissues are unremarkable. IMPRESSION: Transitional anatomy. Mild scoliosis and degenerative changes. -Pt here w normal neuro exam ,only small patch of decrease sensation per pt in left leg ,no hx of back trauma There is a possibility for small hernia but currently no indication for MRI -pt refusing any further PT -pt states improving pain on current regimen -advised to continue tylenol prn x mild pain and meloxicam x mod pain but to try 1st w lidoderm patch and topical diclofenac -referred to orthopedic today -may benefit from steroid inj > -if symptoms dont improve would do MRI of back Left knee pain 11/10/2022 Assessment & Plan (03/10/2023 8:09 PM EDT): Reports had a left knee injury about 3 months ago when he slipped on ice and felt from 3-feet high docking deck. Landed on his side. Was evaluated at an outside urgent care. -left knee XR 08/2022 No displaced fracture or malalignment of the knee. Small suprapatellar effusion. Osteoarthritis. -pt states currently not having pain -is more locking sensation -referred to orthopedic to further eval -lost apt in 12/2022 and gave info today to call for apt. Assessment & Plan (12/13/2022 1:21 PM EDT): Reports had a left knee injury about 3 months ago when he slipped on ice and felt from 3-feet high docking deck. Landed on his side. Was evaluated at an outside urgent care. -left knee XR 08/2022 No displaced fracture or malalignment of the knee. Small suprapatellar effusion. Osteoarthritis. -pt states currently not having pain -is more locking sensation -referred to orthopedic to further eval --has apt x 12/2022 x the knee Assessment & Plan (11/10/2022 5:23 PM EDT): -left knee XR 08/2022 No displaced fracture or malalignment of the knee. Small suprapatellar effusion. Osteoarthritis. -pt states currently not having pain -is more locking sensation -referred to orthopedic to further eval Health care maintenance 11/10/2022 Assessment & Plan (03/10/2023 8:15 PM EDT): -Pt spoke already w CM x food and housing insecurity per chart review -vaccines: s/p COVID 19 x3-pt will bring records. s/p tdap in 2019 per pt , p20 x1 asthma and tobacco smoking. Flu vaccine today. ------- -will do hep B panel and repeat chem x noted mild elevated ALT at 47 ----- will call pt w results Assessment & Plan (12/13/2022 1:22 PM EDT): -Pt spoke already w CM x food and housing insecurity per chart review -annual labs done already and reviewed w pt---will do hep B panel in 2 mo and repeat chem x noted mild elevated ALT at 47 -vaccines: s/p COVID 19 x3-pt will bring records-advised x Bivalent booster but wants to hold x now, s/p tdap in 2019 per pt , p20 today x asthma and tobacco smoking Assessment & Plan (11/10/2022 5:32 PM EDT): -Pt spoke already w CM x food and housing insecurity per chart review -annual labs done already and reviewed w pt today ---will do hep B panel in 3 mo and repeat chem x noted mild elevated ALT at 47 -vaccines: s/p COVID 19 x3-pt will bring records-advised x Bivalent booster but wants to hold x now, s/p tdap in 2019 per pt , left w/o p20 x asthma and tobacco smoking offered today -will offer again at next visit Obesity (BMI 30.0-34.9) 11/10/2022 Assessment & Plan (03/10/2023 8:09 PM EDT): Advised pt to improve diet and exercise,discussed healthy life style -discussed instructor watch assembly referral --referred already -pd to get apt -Gained 4 lb in the last mo. Assessment & Plan (12/13/2022 1:20 PM EDT): Advised pt to improve diet and exercise,discussed healthy life style -discussed instructor watch assembly referral --referred already -pd to get apt -lost 9 pounds in last month -states decrease food portions Assessment & Plan (11/10/2022 5:23 PM EDT): Advised pt to improve diet and exercise,discussed healthy life style -discussed instructor watch assembly referral --referred today Loud snoring 11/10/2022 Assessment & Plan (03/10/2023 8:07 PM EDT): Pt w obesity,loud snoring and episodes of apnea per -referred to sleep med--received letter to call x apt again and gave today to call for apt. -weight loss advised Assessment & Plan (12/13/2022 1:16 PM EDT): Pt w obesity,loud snoring and episodes of apnea per -referred to sleep med--received letter to call x apt -weight loss advised Assessment & Plan (11/10/2022 5:22 PM EDT): Pt w obesity,loud snoring and episodes of apnea per -referred today to sleep med -weight loss advised Moderate episode of recurrent major depressive d isorder 11/10/2022 Assessment & Plan (03/10/2023 8:15 PM EDT): PHQ9: 3 <--- 13-chronic ,denies hallucinations,babar nor SI Tried cutting wrist when was a teenager Duloxetine caused to feel irritable took one dose and stopped Pt states he is feeling much better since he started Escitalopram. -saw already. -pt was referred at previous visit to outpt therapy and psychiatrist -states currently on waiting list -Continue escitalopram - 5 mg every day - taking half tab of 10 mg every day. States that he doesn't want to increase dosage for now as he feels better controlled w 5 mg. Assessment & Plan (12/13/2022 1:25 PM EDT): PHQ9: 13-chronic ,denies hallucinations,babar nor SI Tried cutting wrist when was a teenager Duloxetine caused to feel irritable took one dose and stopped -saw BH At previous visit -denies need to f today -pt was referred at previous visit to outpt therapy and psychiatrist -states currently on waiting list -will start escitalopram instead -will start 1/2 Tab daily x 1 week and if tolerating will take 1 tab daily -explained possible SE ,and to call here or 911 and stop med if SI--will start med after completes ATBx x h pylori -will f here in 5 to 6 weeks to monitor depression until starts care w psychiatrist Assessment & Plan (11/17/2022 12:08 PM EDT): Assessment: Patient with sadness, irritability, sleep disturbance (insomnia), feeling fatigued, overeating, frustration and trouble concentrating. He denies SI/HI. He reports these symptoms have effected his relationship with girlfriend of 8 years. Patient will benefit from OP therapy and psychopharmacology services. At this time Ranjit Parnellria meets criteria for Visit Diagnoses: Problem List Items Addressed This Visit Other Moderate episode of recurrent major depressive disorder (CMS/HCC) Patient ready to address current needs Yes Strengths include ability to express self and request help PLAN: 1. Follow up with [facility] [place]: Not recommended for follow-up 2. Patient goal is to engage in behavioral health services 3. Behavioral Recommendations a. Patient will comply with medication, once started b. Patient will engage in OP therapy and medication management, once established c. Pateint will request to speak with a C during next PCP visit, if needed Assessment & Plan (11/10/2022 5:37 PM EDT): PHQ9: 12-chronic ,denies hallucinations,babar nor SI Tried cutting wrist when was a teenager -saw Today -I will start duloxetine today 30 mg daily -discussed possible SE including SI--advise to stop med if occurring and call here --if tolerating will increase to BID at next visit --this med can help w depression and pain -will monitor in 4 weeks -left w apt today Cigarette smoker 10/05/2022 Assessment & Plan (03/10/2023 8:18 PM EDT): Since 8 years of age until now ---smokes 5 <--- 12 cigarettes a day for the past 3 years-used to smoke 2PQT a day -x 8 years -just trying lozanges now w no help ,Not using patches px -given palpitations -referred to tobacco cessation program------ never started. -Pt agreed to try nicotine patches today - prescribed 7 mg, will plan to prescribe for 4-6 wk, w lozenges PRN. Will f up in 3 mo. Assessment & Plan (12/13/2022 1:19 PM EDT): Since 8 years of age until now ---smokes 12 cigarettes a day for the past 3 years-used to smoke 2PQT a day -x 8 years -just trying lozanges now w no help ,Not using patches px -given palpitations -referred to tobacco cessation program--has apt today Assessment & Plan (11/10/2022 5:24 PM EDT): Since 8 years of age until now ---smokes 12 cigarettes a day for the past 3 years-used to smoke 2PQT a day -x 8 years -just trying lozanges now w no help -advised to start patches px before -referred today to tobacco cessation program again -pt missed apt before Assessment & Plan (10/05/2022 10:12 PM EDT): -Start NRT patch and lozenge. Reviewed med use and safety -Interested [facility] referral to [facility], referral placed Asthma 10/05/2022 Assessment & Plan (03/10/2023 8:07 PM EDT): Controlled -states using albuterol no more than 2 times a month -continue albuterol prn -advised tobacco smoking Assessment & Plan (12/13/2022 1:15 PM EDT): Controlled -states using albuterol no more than 2 times a month -continue albuterol prn -advised tobacco smoking Assessment & Plan (11/10/2022 5:22 PM EDT): Controlled -states using albuterol no more than 2 times a month -continue albuterol prn -advised tobacco smoking Assessment & Plan (10/05/2022 10:19 PM EDT): -Type unspecified -Refill albuterol inhaler sent to pharmacy Resolved Problems Problem Noted Date Diagnosed Date Resolved Date Functional diarrhea 11/10/2022 03/10/20 Assessment & Plan (12/13/2022 1:17 PM EDT): Reports couple of months of and on off diarrhea w no blood no mucus -not currently 10/2022 stool cx,c diff and O&Px1 are neg No obvious etiology at this time -if symptoms persist will consider GI referral at next apt -will monitor in 4 weeks Assessment & Plan (11/10/2022 5:35 PM EDT): Reports couple of months of and on off diarrhea w no blood no mucus No obvious etiology at this time -will start w stool studies -advise hydration -if symptoms persist will consider GI referral Encounters Date Type Department Care Team Description 08/01/2024 Orders Only [facility] External Provider, [facility] 06/05/2024 Telephone [facility] [address] [place] [phone] Yadi Hyatt MD Lab Orders from Last 3 Months Immunizations Name Administration Dates Next Due Influenza injectable quadrivalent preservative f ree 03/09/2023 Pneumococcal Conjugate PCV 20 12/13/2022 Family History Medical History Relation Name Comments DM2 Maternal Grandmother breast cancer,eschizophrenia ,Bipolar dx Mother Relation Name Status Comments Maternal Grandmother Mother Social History Tobacco Use Types Packs/Day Years Used Date Smoking Tobacco: Every Day Cigarettes Passive Smoke Exposure: Current Smokeless Tobacco: Never Tobacco Cessation:Ready to Q uit: Not Asked; Counseling Given: Not Answered Comments:Since 8 years of age until now ---smokes 12 cigarettes a day for the past 3 years-used to smoke 2PQT a day -x 8 years Alcohol Use Standard Drinks/Week Comments Yes 0 (1 standard drink = 0.6 oz pur e alcohol) social Depression Answer Date Recorded Patient Health Questionnaire-9 Score 14 03/07/2024 Patient Health Questionnaire-9 Score 14 03/07/2024 Last PHQ-9: Questionnaire Data Not on file 0 03/07/2024 Housing Stability Answer Date Recorded What is your housing situation today? I have housing today, but I am worried about losing housing in the future 03/07/[address] you li ve. Do you have problems with any of the following? None of the above 03/07/2024 Food Insecurity Answer Date Recorded Within the past 12 months, y ou worried that your food would run out before you got money to buy more: Never True 03/07/2024 Within the past 12 months,th e food you bought just didn't last and you didn't have enough money to get more: Never True Transportation Answer Date Recorded In the past 12 months, has l ack of transportation kept you from medical appts, meetings, work or from getting things needed for daily living? No 04/13/2023 Utilities Answer Date Recorded In the past 12 months, has t he electric, gas, oil or water company threatened to shut off services in your home? No 03/07/2024 Depression Answer Date Recorded Patient Health Questionnaire-2 Score 5 03/07/2024 Internet Access Answer Date Recorded Internet Access Q1 Yes 03/07/2024 Internet Access Q2 Not on file 03/07/2024 Sex and Gender Information Value Date Recorded Sex Assigned at Male 10/05/2022 1:23 PM EDT Legal Sex Male 4:31 PM EST Gender Identity Male 10/05/2022 1:23 PM EDT Sexual Orientation Straight 12/27/2022 12 :09 PM EDT Last Filed Vital Signs Vital Sign Reading Time Taken Comments Blood Pressure 144/83 03/11/2024 3:24 PM EDT Pulse 68 03/11/2024 3:24 PM EDT Temperature 36.5 ??C (97.7 ??F) 03/11/2024 3:24 PM ED T Respiratory Rate 20 03/11/2024 3:24 PM EDT Oxygen Saturation 97% 02/14/2024 1:46 PM EDT Inhaled Oxygen Concentration - - Weight 116 kg (256 lb) 03/11/2024 3:24 PM EDT Height 177.8 cm (5' 10 ) 03/11/2024 3:24 PM EDT Body Mass Index 36.73 03/11/2024 3:24 PM EDT Plan of Treatment Health Maintenance Due Date Last Done Comments Alcohol/Substance Use Screening 1996 Family Planning (PISQ) 09/20/1999 DTaP/Tdap/Td Vaccines (1 - Tdap) 09/20/2003 Hepatitis A Vaccines (1 of 2 - Risk 2-dose series) 09/20/2003 Hepatitis B Vaccines (1 of 3 - 19+ 3-dose series) 09/20/2003 SDOH Screening 11/11/2023 11/10/2022 COVID-19 Vaccine (1 - 2023-2 5 season) 2024 Influenza Vaccine (#1) 2024 03/09/2023 Depression Monitoring (PHQ-9) 09/04/2024, 03/07/2024 Depression Screening 03/07/2025 03/07/2024, 03/07/2024 Tobacco Screening 03/11/2025 03/11/2024 Lipid Panel 10/07/2027 10/06/2022 Zoster Vaccines (1 of 2) 2034 RSV Patients and Patients Aged 60 years or older (1 - 1-dose 75+ series) 09/20/2059 HIV Screening Completed 10/06/2022 Hepatitis C Screening Completed 10/06/2022 Pneumococcal Vaccine: Pediatrics (0 to 5 Years) and At-Risk Patients (6 to 49) Years) Completed 12/13/2022 HIB Vaccines Aged Out No longer eligi ble based on patient's age to complete this topic HPV Vaccines Aged Out No longer eligi ble based on patient's age to complete this topic IPV Vaccines Aged Out No longer eligi ble based on patient's age to complete this topic Meningococcal Vaccine Aged Out No adonis ernesto eligible based on patient's age to complete this topic RSV under 20 months Aged Out No longe r eligible based on patient's age to complete this topic Rotavirus Vaccines Aged Out No longer eligible based on patient's age to complete this topic Procedures Procedure Name Priority Date/Time Associated Diagnosis Comments US VENOUS DUPLEX LE LT Routine 08/01/2024 7:29 PM EST XR KNEE 3 VIEWS LEFT Routine 08/01/2024 3:50 PM EST HEPATITIS C AB W/REFL TO HCV RNA, QN, PCR Routine 10/06/2022 9:32 AM EDT Routine health maintenance HIV 1 RNA, QN PCR W/REFLEX TO GENOTYPE Routine 10/06/2022 9:32 AM EDT Routine health maintenance LIPID PANEL, STANDARD Routine 10/06/2022 9:32 AM EDT Routine health maintenance from Last 3 Months or Most Recently Relevant to Health Maintenance Results * US VENOUS DUPLEX LE LT (08/01/2024 7:29 PM EST) Anatomical Region Laterality Modality Abdomen Ultrasound 08/01/2024 7:29 PM EST Narrative 08/01/2024 7:31 PM EST ? [facility] ?[address] ?[place] [address] ? Ultrasound Report ? Signed ? Patient: Ranjit Diamond ?MR# ?? : [id number] ? : 1985 ?Acct:[id number] ? Age/Sex: 38 / M ?ADM Date: 08/01/24 ? Loc: HO.ED ? Attending Dr: ? Ordering Physician: Marco A Black ?? Date of Service: 08/01/24 ?? Procedure(s): US venous duplex LE LT ?? Accession Number(s): [id number] ? cc: Marco A Black; Yadi Hyatt MD ? CLINICAL HISTORY: pain ? Venous duplex ultrasound left lower extremity ? Comparison: None ? Findings: ?? The visualized deep veins are fully compressible with normal Doppler color ?? flow and spectral tracings. ?? Incidentally noted fluid collection in the lateral knee suspicious for ?? joint effusion or prepatellar fluid collection. ? IMPRESSION: ?? 1. Negative for left lower extremity deep vein thrombosis. ?? 2. Fluid collection in the lateral knee which may be a joint effusion or ?? prepatellar fluid collection. ? This document has been electronically signed by: Rajinder Avery MD on ?? 08/01/2024 19:29:43 ? Dictated By: ?Rajinder Avery MD ? Signed By: ?<Electronically signed by Rajinder Avery MD in OV> ? 08/01/241929 ? DD/ 28 ? TD/TT: 08/01/241928 ? Blockman: ? Procedure Note Donotuseinterpreter, Image - 08/01/[address] [address] Ultrasound Report Signed Patient: Ranjit DiamondMR# : [id number] : 1985Acct:[id number] Age/Sex: 38 / MADM Date: 08/01/24 Loc: HO.ED Attending Dr: Ordering Physician: Marco A Black Date of Service: 08/01/24 Procedure(s): US venous duplex LE LT Accession Number(s): [id number] cc: Marco A Black; Yadi Hyatt MD CLINICAL HISTORY: pain Venous duplex ultrasound left lower extremity Comparison: None Findings: The visualized deep veins are fully compressible with normal Doppler color flow and spectral tracings. Incidentally noted fluid collection in the lateral knee suspicious for joint effusion or prepatellar fluid collection. IMPRESSION: 1. Negative for left lower extremity deep vein thrombosis. 2. Fluid collection in the lateral knee which may be a joint effusion or prepatellar fluid collection. This document has been electronically signed by: Rajinder Avery MD on 08/01/2024 19:29:43 Dictated By: Rajinder Avery MD Signed By: <Electronically signed by Rajinder Avery MD in OV> 08/01/241929 DD/ 28 TD/TT: 08/01/241928 Blockman: us [facility] External Provider IMG US PROCEDURES Edited Result - Final * XR Knee 3 Views Left (08/01/2024 3:50 PM EST) Anatomical Region Laterality Modality Lower Extremities, Knee Left Radiogra phic Imaging 08/01/2024 3:50 PM EST Narrative 08/01/2024 4:50 PM EST ? [facility] ?[address] ?[place] [address] ?XRay Report ? Signed ? Patient: Shayan Hernandez,Ranjit ?MR# ?? : [id number] ? : 1985 ?Acct:[id number] ? Age/Sex: 38 / M ?ADM Date: 08/01/24 ? Loc: HO.ED ? Attending Dr: ? Ordering Physician: Marco A Black ?? Date of Service: 08/01/24 ?? Procedure(s): XR knee LT 3V ?? Accession Number(s): [id number] ? cc: Marco A Black; Yadi Hyatt MD ? EXAMINATION: ?? XR KNEE, LEFT ? CLINICAL INFORMATION: ?? pain ? COMPARISON: ?? 03/21/2023. ? TECHNIQUE: ?? Four views of the left knee. ? FINDINGS: ?? No fracture, dislocation, or suspicious bone lesion. Normal bone ?? mineralization. ?? Normal alignment. ?? Mild to moderate tricompartmental osteoarthritis. ? No significant joint effusion. ? Soft tissues appear normal. ? XR/XR knee LT 3V ?? IMPRESSION: ?? 1. No acute findings left knee. ?? 2. Mild to moderate tricompartmental osteoarthrosis. ? Electronically signed by: ??Lam Martinez MD ??08/01/2024 04:48 PM EST RP ? Dictated By: ?Lam Martinez MD ? Signed By: ?<Electronically signed by Lam Martinez MD in OV> ?08/01/24 1648 ? DD/ 1550 ? TD/TT: 08/01/24 1600 ? Blockman: ? Procedure Note James, Image - 08/01/[address] [address] XRay Report Signed Patient: Shayan HernandezRanjitMR# : [id number] : 1985Acct:[id number] Age/Sex: 38 / MADM Date: 08/01/24 Loc: HO.ED Attending Dr: Ordering Physician: Marco A Black Date of Service: 08/01/24 Procedure(s): XR knee LT 3V Accession Number(s): [id number] cc: Marco A Black; Yadi Hyatt MD EXAMINATION: XR KNEE, LEFT CLINICAL INFORMATION: pain COMPARISON: 03/21/2023. TECHNIQUE: Four views of the left knee. FINDINGS: No fracture, dislocation, or suspicious bone lesion. Normal bone mineralization. Normal alignment. Mild to moderate tricompartmental osteoarthritis. No significant joint effusion. Soft tissues appear normal. XR/XR knee LT 3V IMPRESSION: 1. No acute findings left knee. 2. Mild to moderate tricompartmental osteoarthrosis. Electronically signed by: Lam Martinez MD 08/01/2024 04:48 PM [facility] Dictated By: Lam Martinez MD Signed By: <Electronically signed by Lam Martinez MD in OV> 08/01/24 1648 DD/ 1550 TD/TT: 08/01/24 1600 [place]: [facility] External Provider IMG XR PROCEDURES Edited Result - Final * HIV-1 RNA, Quantitative, PCR with Reflex to Genotype (10/06/2022 9:32 AM EDT) [facility] HIV 1 RNA, QN PCR Not Detected Copies/mL [facility] HIV 1 RNA, QN PCR Not Detected Log cps/mL [facility] Comment: Reference Range: ?Not Detected ? copies/mL ?Not Detected Log copies/mL The test was performed using Real-Time Polymerase Chain Reaction. ? Reportable Range: 20 copies/mL to 10,000,000 copies/mL (1.30 Log copies/mL to 7.00 Log copies/mL). 10/06/2022 9:32 AM EDT 10/06/2022 9:33 AM EDT Ame Barry [facility] BLOOD ORDERABLES Final Res ult Performing Organization Address City/[facility]/ZIP Co de Phone Number [address], [facility] [place] [address] [employer]/[place] [address] [facility] [place] [address] * Hepatitis C Antibody with Reflex to HCV, RNA, Quantitative, Real-Time PCR (10/06/2022 9:32 AM EDT) Pathologist [facility] Hepatitis C Antibody NON-REACT YANI NON-REACT YANI [employer] [place] [employer] Index 0.11 <1.00 [employer] [place] [employer] Comment: HCV antibody was non-reactive. There is no laboratory evidence of HCV infection. In most cases, no further action is required. However, if recent HCV exposure is suspected, a test for HCV RNA (test code 27862) is suggested. For additional information please refer to http://education.Kaola100/faq/ZBQ98r0 (This link is being provided for informational/ educational purposes only.) Blood Venous blood specimen / Unknown 10/06/2022 9:32 AM EDT 10/06/2022 9:33 AM EDT Ame Barry [facility] BLOOD ORDERABLES Final Res ult Performing Organization Address [facility]/ZIP Co de Phone Number [address], [facility] [place] [address] [employer] [place] [employer] [address] [place] [address] * Lipid Panel, Standard (10/06/2022 9:32 AM EDT) Cholesterol, Total 157 <200 mg/dL [employer] [place] [employer] HDL Cholesterol 41 > OR = 40 mg/dL [employer] [place] [employer] Triglycerides 101 <150 mg/dL [employer] [place] [employer] LDL Cholesterol 97 mg/dL (calc) [employer] [place] [employer] Comment: Reference range: <100 Desirable range <100 mg/dL for primary prevention; ?? <70 mg/dL for patients with CHD or diabetic patients with > or = 2 CHD risk factors. LDL-C is now calculated using the Margarita calculation, which is a validated novel method providing better accuracy than the Friedewald equation in the estimation of LDL-C. Luis Enrique ACOSTA et al. LYSSA. 2013;310(19): 5747-2188 (http://Macrocosm.LetGive/faq/DSE908) Chol/HDLC Ratio 3.8 <5.0 (calc) [employer] Non-HDL Cholesterol 116 <130 mg/dL (calc) [employer] Comment: For patients with diabetes plus 1 major ASCVD risk factor, treating to a non-HDL-C goal of <100 mg/dL (LDL-C of <70 mg/dL) is considered a therapeutic option. Blood Venous blood specimen / Unknown 10/06/2022 9:32 AM EDT 10/06/2022 9:33 AM EDT Ame Barry [facility] BLOOD ORDERABLES Final Res ult [facility] [address], [place] [address] [employer] [place] [employer] [address] [place] [address] from Last 3 Months or Most Recently Relevant to Health Maintenance Insurance [facility] [place] [address] [place] [address] [place] [address] Care Teams Germination Worker Relationship Specialty Start Date End Date Yadi Hyatt MD [address] [place] [address] PCP - General Internal Medicine 10/19/22
--- OUTSIDE RECORDS SUMMARY | 2024-08-13 16:03 | XMS_ITS | Encounter Summary ---
Author Organization [employer] Address [address] 7[address] [place] [address] Care Team Providers Care Retail Sales Assistant Name Role Phone Yadi Hyatt MD Primary Care Pro vider Encounter Details Date Type Department Care Team (Late st Contact Info) Description 08/01/2024 Orders Only [facility] External Provider, [facility] Social History Tobacco Use Types Packs/Day Years Used Date Smoking Tobacco: Every Day Cigarettes Passive Smoke Exposure: Current Smokeless Tobacco: Never Comments:Since 8 years of ag e until now ---smokes 12 cigarettes a day [...] Orientation Straight 12/27/2022 12 :09 PM EDT documented as of this encounter Plan of Treatment Not on file documented as of this encounter Procedures Procedure Name Priority Date/Time Associated Diagnosis Comments US VENOUS DUPLEX LE LT Routine 08/01/2024 7:29 PM EST XR KNEE 3 VIEWS LEFT Routine 08/01/2024 3:50 PM EST documented in this encounter Results * US VENOUS DUPLEX LE LT (08/01/2024 7:29 PM EST) Anatomical Region Laterality Modality Abdomen Ultrasound 08/01/2024 7:29 PM EST Narrative 08/01/2024 7:31 PM EST ? [facility] ?[address] ?[place] [address] ? Ultrasound Report ? Signed ? Patient: Ranjit Diamond ?MR# ?? : [id number] ? : 1985 ?Acct:[id number] ? Age/Sex: 38 / M ?ADM Date: 02/14/25 ? Loc: HO.ED ? Attending Dr: ? Ordering Physician: Marco A Black ?? Date of Service: 08/01/24 ?? Procedure(s): US venous duplex LE LT ?? Accession Number(s): [id number] ? cc: Marco A Black; Yadi Hyatt [...] by Rajinder Avery MD in OV> ? 08/01/24 1930 ? DD/ 28 ? TD/TT: 08/01/241928 ? Relocation Commissioner: ? Procedure Note Donerickadamrafaelter, Image - 08/01/2024 [place] [address] Ultrasound Report Signed Patient: Ranjit DiamondMR# : [id number] : 1985Acct:[id number] Age/Sex: 38 / MADM Date: 08/01/24 Loc: HO.ED Attending Dr: Ordering Physician: Marco A Black Date of Service: 08/01/24 Procedure(s): US venous duplex LE LT Accession Number(s): [id number] cc: Marco A Black; Yadi Hyatt MD [...] in OV> 08/01/241929 DD/ 28 TD/TT: 08/01/241928 Relocation Commissioner: us [facility] External Provider IMG US PROCEDURES Edited Result - Final * XR Knee 3 Views Left (08/01/2024 3:50 PM EST) Anatomical Region Laterality Modality Lower Extremities, Knee Left Radiogra phic Imaging 08/01/2024 3:50 PM EST Narrative 08/01/2024 4:50 PM EST ? [facility] ?[address] ?[place] [address] ?XRay Report ? Signed ? Patient: Ranjit Diamond ?MR# ?? : [id number] ? : 1985 ?Acct:[id number] ? Age/Sex: 38 / M ?ADM Date: 08/01/24 ? Loc: HO.ED ? Attending Dr: ? Ordering Physician: Marco A Black ?? Date of Service: 08/01/24 ?? Procedure(s): XR knee LT 3V ?? Accession Number(s): [id number] ? cc: Marco A Black; Yadi Hyatt [...] DD/ 1550 ? TD/TT: 08/01/24 1600 ? Relocation Commissioner: ? Procedure Note James, Image - 08/01/[address] [address] XRay Report Signed Patient: Ranjit DiamondMR# : [id number] : 1985Acct:[id number] Age/Sex: 38 / MADM Date: 08/01/24 Loc: HO.ED Attending Dr: Ordering Physician: Marco A Black Date of Service: 08/01/24 Procedure(s): XR knee LT 3V Accession Number(s): [id number] cc: Marco A Black; Yadi Hyatt MD [...] by: Lam Martinez MD 08/01/2024 04:48 PM [facility] Dictated By: Lam Martinez MD Signed By: <Electronically signed by Lam Martinez MD in OV> 08/01/24 1648 DD/ 1550 TD/TT: 08/01/24 1600 Relocation Commissioner: [facility] External Provider IMG XR PROCEDURES Edited Result - Final documented in this encounter Visit Diagnoses Not on filedocumented in this encounter Additional Health Concerns Assessment Noted Time PHQ-9 Depression Total Score: 14 03/07/ 024 3:33 PM EDT documented as of this encounter Care Teams Retail Sales Assistant Relationship Specialty Start Date End Date Yadi Hyatt MD [address] [place] [address] PCP - General Internal Medicine 10/19/22 documented as of this encounter
--- OUTSIDE RECORDS SUMMARY | 2024-08-13 16:03 | XMS_ITS | Encounter Summary ---
Author Organization [employer] Address [address] 7[address] [place] [address] Care Team Providers Care Director Strategic Planning Name Role Phone Yadi Hyatt MD Primary Care Pro vider Reason for Visit * Reason Comments Med Refill Encounter Details Date Type Department Care Team ([facility] Contact Info) Description 01/08/2023 Refill [facility] [address] [place], [place] [phone] Ame Rubin FNP Social History Tobacco Use Types Packs/Day Years [...] = 0.6 oz pur e alcohol) social PHQ-2 Answer Date Recorded Patient Health Questionnaire-2 Score 2 11/10/2022 Sex and Gender Information Value Date Recorded Sex Assigned at Male 10/05/2022 1:23 PM EDT Legal Sex Male 4:31 PM EST Gender Identity Male 10/05/2022 1:23 PM EDT Sexual Orientation Straight 12/27/2022 12 :09 PM EDT COVID-19 Exposure Response Date Recorded In the last 10 days, have yo u been in contact with someone who was confirmed or suspected to have Coronavirus/COVID-19? No / Unsure 12/26/2022 12:07 PM EDT documented as of this encounter Plan of Treatment Not on file documented as of this encounter Visit Diagnoses Not on filedocumented in this encounter Additional Health Concerns Assessment Noted Time PHQ-9 Depression Total Score: 13 023 1:09 PM EDT documented as of this encounter Care Teams Director Strategic Planning Relationship Specialty Start Date End Date Yadi Hyatt MD [address] [place] [address] PCP - General Internal Medicine 10/19/22 documented as of this encounter
--- OUTSIDE RECORDS SUMMARY | 2024-08-13 16:03 | XMS_ITS | Encounter Summary ---
Author Organization [employer] Address [address] [facility] 7 [place] [address] Care Team Providers Care Panel Edge Painter Name Role Phone Yadi Hyatt MD Primary Care Pro vider Reason for Visit * Reason Comments Med Change Request Encounter Details Date Type Department Care Team ([facility] Contact Info) Description 03/29/2024 Refill [facility] MEDICINE [address] [place] [address] Yadi Hyatt MD [address] [place] [address] Social History Tobacco Use Types Packs/Day Years [...] Noted Time PHQ-9 Depression Total Score: 14 024 3:33 PM EDT documented as of this encounter Care Teams Panel Edge Painter Relationship Specialty Start Date End Date Yadi Hyatt MD [address] [place] [address] PCP - General Internal Medicine 10/19/22 documented as of this encounter
== END 2024-08-13 13:37 | disposition home or self-care (01) ==
PROVIDERS: PCP Student in an Organized Health Care Education/Training Program; Visit Provider Orthopaedic Surgery
DX: S83.242D Other tear of medial meniscus, current injury, left knee, subsequent encounter (principal); M25.562 Pain in left knee
CPT/HCPCS: 99213; G2211

== ENCOUNTER → 2024-08-13 13:03 | Outpatient (BNVA) | payer OTHER, SELFPAY | PROVIDERS: PCP Student in an Organized Health Care Education/Training Program; Visit Provider Orthopaedic Surgery | DX: M25.562 Pain in left knee (principal); Z98.890 Other specified postprocedural states | CPT/HCPCS: 99212 ==

== ENCOUNTER 2024-10-08 12:48 | Outpatient (AMB) | payer OTHER, SELFPAY ==
[2024-10-08 12:53] VITALS: BMI 34.4
--- NOTE | 2024-10-08 12:53 | MHC.OFFVIS ---
Vital Signs 10/08/24 12:53 Height 5 ft 11 in Weight 247 lb BMI 34.4 Intake Visit Reasons: OV-Lt Knee 04/25/24 review work status Intake Note: Ranjit is a 39 year old male who presents with complaints of intermittent discomfort in his left knee after undergoing left knee arthroscopic surgery on 04/25/2024. The patient states that he notices the discomfort mostly when he is working out. He plans to return to work later this week. He has been out of work since April. 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 Shayan Hernandez continues to do well after undergoing left knee arthroscopic surgery on 04/25/2024. I have cleared the patient to return to work. Follow up with me on an as-needed basis should his symptoms worsen in any way. I spent 22 minutes in reviewing the patient's records and imaging studies, seeing the patient and documenting in the medical record. Coding Level of Care Code Est Pt Level 3 (16532) Complex EM visit Add On G2211 Diagnoses S/P arthroscopic surgery of left knee Z98.890
--- OUTSIDE RECORDS SUMMARY | 2024-10-08 15:07 | XMS_ITS | Encounter Summary ---
Author Organization [employer] Address [address] [facility] 7 [place] [address] Care Team Providers Care Nurse Advisor Name Role Phone Yadi Hyatt MD Primary Care Pro vider Reason for Visit * Reason Comments Med Change Request Encounter Details Date Type Department Care Team ([facility] Contact Info) Description 03/29/2024 Refill [facility] MEDICINE [address] [place] [address] Yadi Hyatt MD [address] [place] [address] Social History Tobacco Use Types Packs/Day Years [...] documented as of this encounter Care Teams Nurse Advisor Relationship Specialty Start Date End Date Yadi Hyatt MD [address] [place] [address] PCP - General Internal Medicine 10/19/22 documented as of this encounter
--- OUTSIDE RECORDS SUMMARY | 2024-10-08 15:07 | XMS_ITS | Clinical Summary ---
Author Organization [employer] Address [address] [place] [address] Care Team Providers Care Blending Machine Feeder Name Role Phone Yadi Hyatt MD Primary [...] diet and exercise,discussed healthy life style -discussed wet end operator referral --referred already -pd to get apt -Gained 4 lb in the last mo. Assessment & Plan (12/13/2022 1:20 PM EDT): Advised pt to improve diet and exercise,discussed healthy life style -discussed wet end operator referral --referred already -pd to get apt -lost 9 pounds in last month -states decrease food portions Assessment & Plan (11/10/2022 5:23 PM EDT): Advised pt to improve diet and exercise,discussed healthy life style -discussed wet end operator referral --referred today Loud snoring 11/10/2022 Assessment [...] request help PLAN: 1. Follow up with [facility]: Not recommended for follow-up 2. Patient goal [...] Encounters Date Type Department Care Team Description 09/26/2024 Telephone [facility] 230 [place], [place] [phone] Yadi Hyatt MD December08/20/2024 Telephone [facility] [address] [place], [place] [phone] Shonna Gallagher RN Results 08/01/2024 Orders Only [facility] External Provider, [facility] from Last 3 Months Immunizations Name Administration [...] DTaP/Tdap/Td Vaccines (1 - Tdap) 09/20/2003 Hepatitis B Vaccines (1 of 3 - 19+ 3-dose series) 09/20/2003 SDOH Screening 11/11/2023 11/10/2022 COVID-19 Vaccine (1 - 2023-2 5 season) 2024 Influenza Vaccine (#1) 2024 03/09/2023 Depression Monitoring 09/04/2024 03/07/2024 , 03/07/2024 Depression Screening 03/07/2025 03/07/2024, 03/07/2024 Tobacco [...] on patient's age to complete this topic Hepatitis A Vaccines Aged Out No long er eligible based on patient's age to complete [...] EST Narrative 08/01/2024 7:31 PM EST ? [facility] ?[address] ?[place] [address] ? Ultrasound Report ? Signed ? Patient: Ranjit Diamond ?MR# ?? : [id number] ? : 1985 ?Acct:[id number] ? Age/Sex: 38 / M ?ADM Date: 08/01/24 ? Loc: HO.ED ? Attending Dr: ? Ordering Physician: Marco A Black ?? Date of Service: 08/01/24 ?? Procedure(s): US venous duplex LE LT ?? Accession Number(s): [id number] ? cc: Marco A Black; Yadi Hyatt [...] ? DD/ 28 ? TD/TT: 08/01/241928 ? Medical Attendant: ? Procedure Note Donotuseinterpreter, Image - 08/01/2024 [place] [address] Ultrasound Report Signed Patient: Ranjit DiamondMR# : [id number] : 1985Acct:[id number] Age/Sex: 38 / MADM Date: 08/01/24 Loc: .ED Attending Dr: Ordering Physician: Marco A Black Date of Service: 08/01/24 Procedure(s): US venous duplex LE LT Accession Number(s): [id number] cc: Marco A Black; Yadi Hyatt MD [...] signed by Rajinder Avery MD in OV> 08/01/240 DD/ 28 TD/TT: 08/01/241928 Medical Attendant: [facility] External Provider IMG US PROCEDURES Edited Result - Final * XR Knee 3 Views Left (08/01/2024 3:50 PM EST) Anatomical Region Laterality Modality Lower Extremities, Knee Left Radiogra phic Imaging 08/01/2024 3:50 PM EST Narrative 08/01/2024 4:50 PM EST ? [facility] ?[address] ?[place] [address] ?XRay Report ? Signed ? Patient: Shayan [place],Ranjit ?MR# ?? : [id number] ? : 1985 ?Acct:[id number] ? Age/Sex: 38 / M ?ADM Date: 08/01/24 ? Loc: HO.ED ? Attending Dr: ? Ordering Physician: Marco A Black ?? Date of Service: 08/01/24 ?? Procedure(s): XR knee LT 3V ?? Accession Number(s): [id number] ? cc: Marco A Black; Yadi Hyatt [...] DD/ 1550 ? TD/TT: 08/01/24 1600 ? Medical Attendant: ? Procedure Note James, Cielo - 08/01/[address] [address] XRay Report Signed Patient: Shayan Hernandez Edjose mariaMR# : [id number] : 1985Acct:[id number] Age/Sex: 38 / MADM Date: 08/01/24 Loc: HO.ED Attending Dr: Ordering Physician: Marco A Black Date of Service: 08/01/24 Procedure(s): XR knee LT 3V Accession Number(s): [id number] cc: Marco A Black; Yadi Hyatt MD [...] by: Lam Martinez MD 08/01/2024 04:48 PM EST Dictated By: Lam Martinez MD Signed By: <Electronically signed by Lam Martinez MD in OV> 08/01/24 1648 DD/ 1550 TD/TT: 08/01/24 1600 Medical Attendant: [facility] External Provider IMG XR PROCEDURES Edited Result - Final * HIV-1 RNA, Quantitative, PCR with Reflex to Genotype (10/06/2022 9:32 AM EDT) HIV 1 RNA, QN PCR Not Detected Copies/mL [facility] HIV 1 RNA, QN PCR Not Detected Log cps/mL [facility]/N [employer] [facility] Comment: Reference Range: ?Not Detected ? copies/mL ?Not Detected Log copies/mL The test was performed using Real-Time Polymerase Chain Reaction. ? Reportable Range: 20 copies/mL to 10,000,000 copies/mL (1.30 Log copies/mL to 7.00 Log copies/mL). 10/06/2022 9:32 AM EDT 10/06/2022 9:33 AM EDT Ame Barry [facility] BLOOD ORDERABLES Final Res ult Performing Organization Address [facility] Co de Phone Number [facility] [address] [place] [address], [place] [address] [employer]/[place] [address] [facility] [place] [address] * Hepatitis C Antibody with Reflex to HCV, RNA, Quantitative, Real-Time PCR (10/06/2022 9:32 AM EDT) Pathologist [facility] Hepatitis C Antibody NON-REACT YANI NON-REACT YANI [employer] [place] [employer] Index 0.11 <1.00 [employer] [place] [employer] Comment: HCV antibody was non-reactive. There is no laboratory evidence of HCV infection. In most cases, no further action is required. However, if recent HCV exposure is suspected, a test for HCV RNA (test code 18798) is suggested. For additional information please refer to http://education.Metropolitan App/faq/PXR71q3 (This link is being provided for informational/ educational purposes only.) Blood Venous blood specimen / Unknown 10/06/2022 9:32 AM EDT 10/06/2022 9:33 AM EDT us Ame Barry [facility] BLOOD ORDERABLES Final Res ult Performing Organization Address [facility] Co de Phone Number [address], [place] [address] [employer] [place] [employer] [facility] [address] [place] [address] * Lipid Panel, Standard (10/06/2022 9:32 AM EDT) Cholesterol, Total 157 <200 mg/dL [employer] [place] [employer] HDL Cholesterol 41 > OR = 40 mg/dL [employer] [place] [employer] Triglycerides 101 <150 mg/dL [employer] [place] [employer] LDL Cholesterol 97 mg/dL (calc) [employer] Comment: Reference range: <100 Desirable range <100 mg/dL for primary prevention; ?? <70 mg/dL for patients with CHD or diabetic patients with > or = 2 CHD risk factors. LDL-C is now calculated using the Margarita calculation, which is a validated novel method providing better accuracy than the Friedewald equation in the estimation of LDL-C. Luis Enrique SS et al. LYSSA. 2013;310(19): 6171-7135 (http://education.Elder's Ec[employer]/faq/HEU186) Chol/HDLC Ratio 3.8 <5.0 (calc) [employer] Non-HDL Cholesterol 116 <130 mg/dL (calc) [facility] Comment: For patients with diabetes plus 1 major ASCVD risk factor, treating to a non-HDL-C goal of <100 mg/dL (LDL-C of <70 mg/dL) is considered a therapeutic option. Blood Venous blood specimen / Unknown 10/06/2022 9:32 AM EDT 10/06/2022 9:33 AM EDT Ame Barry [facility] BLOOD ORDERABLES Final Res ult [facility] [address], [place] [address] [employer] [address] [place] [address] from Last 3 Months or Most Recently Relevant to Health Maintenance Insurance [facility] NAVIGATE Care Teams Blending Machine Feeder Relationship Specialty Start Date End Date Yadi Hyatt MD [address] [place] [address] PCP - General Internal Medicine 10/19/22
--- OUTSIDE RECORDS SUMMARY | 2024-10-08 15:07 | XMS_ITS | Encounter Summary ---
Author Organization [facility] [employer] Address [address] [place] [address] Care Team Providers Care Liquid Natural Gas Plant Operator Name Role Phone Yadi Hyatt MD Primary Care Pro vider Reason for Visit * Reason Comments Med Refill Encounter Details Date Type Department Care Team ([facility] Contact Info) Description 01/08/2023 Refill [facility] [address] [place], [place] [phone] Ame Rubin FNP Social History Tobacco Use [...] documented as of this encounter Care Teams Liquid Natural Gas Plant Operator Relationship Specialty Start Date End Date Yadi Hyatt MD [address] [place] [address] PCP - General Internal Medicine 10/19/22 documented as of this encounter
== END 2024-10-08 13:08 | disposition home or self-care (01) ==
LOC: HO.HOS 12:49
PROVIDERS: PCP Student in an Organized Health Care Education/Training Program; Visit Provider Orthopaedic Surgery
DX: Z47.89 Encounter for other orthopedic aftercare (principal); S83.242D Other tear of medial meniscus, current injury, left knee, subsequent encounter
CPT/HCPCS: 99213; G2211

== ENCOUNTER → 2024-10-08 12:48 | Outpatient (BNVA) | payer OTHER, SELFPAY | PROVIDERS: PCP Student in an Organized Health Care Education/Training Program; Visit Provider Orthopaedic Surgery | DX: Z09 Encounter for follow-up examination after completed treatment for conditions other than malignant neoplasm (principal) | CPT/HCPCS: 99212 ==

== ENCOUNTER 2024-11-18 10:08 | Outpatient (AMB) | payer OTHER, SELFPAY ==
--- NOTE | 2024-11-18 10:11 | A.OFFVIS_ITS ---
Vital Signs 11/18/24 10:16 Height 5 ft 11 in Weight 247 lb BMI 34.4 Intake Visit Reasons: Left knee pain Intake Note: Ranjit is a 39 year old male who presents with complaints of left knee pain. The patient did undergo left knee arthroscopic surgery on 04/25/2024. He denies any fevers or chills. The patient states that he does do quite a bit of physical activity during his work shifts. He has tried Tylenol and anti-inflammatory medicines which gave him mild relief. Allergies meloxicam Adverse Reaction (Verified 11/18/24 10:16) Numbness Medication List - Last Reconciled 11/19/24 by Mark Alba MD acetaminophen (Tylenol Extra Strength) 500 mg PO Q6H PRN albuterol sulfate 90 mcg/actuation inhalation cyclobenzaprine 10 mg PO BEDTIME PRN PFSH Medical History Carpal tunnel syndrome on both sides Asthma Surgical History Surgical history unknown Social History Alcohol intake: current Alcohol intake frequency: holidays/special occasions only Patient Tobacco Use Status: Current everyday Tobacco user Tobacco use type: Cigarette Cigarettes Per Day: 8 Substance Use Type: Marijuana Current occupational status: employed 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 Physical Exam Vital Signs: BMI result Body Mass Index 34.4 Const Other: Well-nourished well-developed very friendly male awake alert and oriented x3 in no acute distress Extrem Other: Bilateral lower extremity examination shows good capillary refill, no skin lesions noted, normal sensation light touch Left knee examination shows mild crepitus with range of motion, discomfort with range of motion, no instability Office Procedures AMB Joint Injection/Aspiration Joint Injection/Aspiration Primary Site: left knee Prep: site was prepped using aseptic technique Injected: 40 mg of, DepoMedrol and 1% plain lidocaine Procedure: The patient tolerated the procedure well Coding 17695 - Large joint Procedure code (CPT) selection complete Assessment & Plan Assessment & Plan (1) Left knee pain: Code(s): M25.562 - Pain in left knee Category: Medical Plan Mr. Shayan Mary presents with left knee pain due to early degenerative joint disease. The risks and benefits of a left knee cortisone injection were discussed at length with the patient. The patient wished to proceed. He tolerated the injection well. He will continue with his activity modifications. He will contact me prior to his follow-up appointment in 3 months should any questions or concerns arise. Feel free to call me at any time should questions regarding his orthopedic management arise. I spent 20 minutes in reviewing the patient's records and imaging studies, seeing the patient and documenting in the medical record. Orders: Orders AMB Joint Injection/Aspiration 11/18/24 M25.562 - Pain in left knee Coding Level of Care Code Est Pt Level 3 (51032) Complex EM visit Add On G2211 Diagnoses Left knee pain M25.562 CPT Codes Coding - 73579 Large joint: 77055 - Large joint ([id number])
[2024-11-18 10:16] VITALS: BMI 34.4
--- OUTSIDE RECORDS SUMMARY | 2024-11-18 11:37 | XMS_ITS | Encounter Summary ---
Author Organization [employer] Address [address] [place] [address] Care Team Providers Care Glass Deposition Tender Name Role Phone Yadi Hyatt MD Primary Care Pro vider Reason for Visit * Reason Comments Med Refill Encounter Details Date Type Department Care Team ([facility] st Contact Info) Description 01/08/2023 Refill [facility] [address] [place], [place] [id number] Ame Rubin FNP Social History Tobacco Use [...] Noted Time PHQ-9 Depression Total Score: 13 05/26/2 023 1:09 PM EDT documented as of this encounter Care Teams Glass Deposition Tender Relationship Specialty Start Date End Date Yadi Hyatt MD [address] [place] [id number] PCP - General Internal Medicine 10/19/22 documented as of this encounter
== END 2024-11-18 10:44 | disposition home or self-care (01) ==
LOC: HO.HOS 10:08
PROVIDERS: PCP Student in an Organized Health Care Education/Training Program; Visit Provider Orthopaedic Surgery
DX: M25.562 Pain in left knee (principal)
CPT/HCPCS: 20610; 99213

== ENCOUNTER → 2024-11-18 10:08 | Outpatient (BNVA) | payer OTHER, SELFPAY | PROVIDERS: PCP Student in an Organized Health Care Education/Training Program; Visit Provider Orthopaedic Surgery | DX: M25.562 Pain in left knee (principal) | CPT/HCPCS: 20610; 99212; J1010; J2003 ==

== ENCOUNTER 2025-02-19 10:13 | Outpatient (AMB) | payer OTHER, SELFPAY ==
--- OUTSIDE RECORDS SUMMARY | 2022-08-21 15:00 | XMS_ITS | Encounter Summary ---
Author Organization [facility] Address [address] [facility] [address] [place] [phone] Phone Care Team Providers Care Safety And Security Manager Name Role Phone Pcp, Unknown Primary Care Provider Unavailabl e Encounter Details Date Type Department Care Team (Late st Contact Info) Description 08/21/2022 2:00 PM EST Hospital Encounter [facility] [address] [place] [phone] Hali Reagan CNP [address] [place] [phone] [email or web address] Social History Tobacco Use Types Packs/Day Years [...] knee. Small suprapatellareffusion. Osteoarthritis. us Hali Reagan ENVIRONMENTAL FIELD TECHNICIAN IMG XR LOWER EXTREMITY Gloria l Result documented in this encounter Visit Diagnoses Not on filedocumented in this encounter Care Teams Safety And Security Manager Relationship Specialty Start Date End Date Pcp, Unknown PCP - General 08/21/22 documented as of this encounter Additional Source Comments The information contained in this document represents components of the legal health record. It is not the complete legal health record.[facility]
--- NOTE | 2025-02-19 10:19 | MHC.OFFVIS ---
Vital Signs 02/19/25 10:28 Height 5 ft 11 in Weight 247 lb BMI 34.4 Intake Visit Reasons: OV-Lt Knee 04/25/24, last inj 11/18/24 Intake Note: Ranjit is a 39 year old male who presents with complaints of diffuse joint pain as well as intermittent discomfort in his left knee after undergoing left knee arthroscopic surgery on 04/25/2024. He states that he did get a fair amount of relief from the cortisone injection that he was given in his last visit. He continues with his exercise program. He states that ?arthritis? runs on his mother side of the family. Allergies meloxicam Adverse Reaction (Verified 02/19/25 10:28) Numbness Medication List - Last Reconciled 02/19/25 by Mark Alba MD acetaminophen (Tylenol Extra Strength) 500 mg PO Q6H PRN albuterol sulfate 90 mcg/actuation inhalation cyclobenzaprine 10 mg PO BEDTIME PRN lidocaine-prilocaine 2.5-2.5 % topical ONCE PFSH Medical History Carpal tunnel syndrome on both sides Asthma Surgical History Surgical history unknown Social History Alcohol intake: current Alcohol intake frequency: holidays/special occasions only Patient Tobacco Use Status: Current everyday Tobacco user Tobacco use type: Cigarette Cigarettes Per Day: 8 Substance Use Type: Marijuana Current occupational status: employed 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 Shayan Hernandez is doing fairly well after undergoing left knee arthroscopic surgery on 04/25/2024. He does have a family history of arthritis. I did recommend that the patient be evaluated in our rheumatology office to help rule out inflammatory disease such as rheumatoid arthritis. The patient will follow-up as instructed. He will contact me prior to his follow-up appointment with me in 3-4 months should any questions or concerns arise. I spent 22 minutes in reviewing the patient's records and imaging studies, seeing the patient and documenting in the medical record. Orders: Referrals Rheumatology Referral M25.50 - Pain in unspecified joint Coding Level of Care Code Est Pt Level 3 (61984) Complex EM visit Add On G2211 Diagnoses Left knee pain M25.562
[2025-02-19 10:28] VITALS: BMI 34.4
--- OUTSIDE RECORDS SUMMARY | 2025-02-19 11:32 | XMS_ITS | Clinical Summary ---
Author Organization [facility] Address [address] [place] [phone] Phone Care Team Providers Care Vehicle Controls Engineer Name Role Phone Pcp, Unknown Primary Care Provider Unavailabl e Allergies No known active allergies Medications No known medications Active Problems No known active problems Social History Tobacco Use Types Packs/Day Years [...] Orientation Straight 07/17/2024 12 :00 PM EST Last Filed Vital Signs Vital Sign Reading Time Taken Comments Blood Pressure 129/80 08/28/2022 4:22 PM EDT Pulse 72 08/28/2022 4:22 PM EDT Temperature 36.7 C (98.1 F) 08/28/2022 4:22 PM EDT Respiratory Rate 20 08/28/2022 4:22 PM EDT Oxygen Saturation 100% 08/28/2022 4:22 PM EDT Inhaled Oxygen Concentration - - Weight 112 kg (247 lb) 08/28/2022 4:22 PM EDT Height - - Body Mass Index - - Plan of Treatment Health Maintenance Due Date Last Done Comments Adult Td,Tdap Booster 1984 LIPID PANEL 1984 DEPRESSION SCREENING 1996 HEPATITIS C SCREENING 2002 HIV ONE-TIME SCREENING (18-6 5 YEARS) 2002 COVID-19 VACCINE (2023-2 5 season) 2024 INFLUENZA VACCINE (#1) 2025 SMOKING STATUS SCREENING (On ce After 26 Yrs) Completed 08/28/2022 HEPATITIS A VACCINES Aged Out No long er eligible based on patient's age to complete this topic HIB VACCINES Aged Out No longer eligi ble based on patient's age to complete this topic MENINGOCOCCAL VACCINES (ACWY) Aged Out No longer eligible based on patient's age to complete this topic MENINGOCOCCAL VACCINES (B) Aged Out N o longer eligible based on patient's age to complete this topic PNEUMOCOCCAL VACCINES (0-49 years) Aged Out No longer eligible based on patient's age to complete this topic Medical Devices Not on file Insurance C3 ACO C3 ACO C3 ACO C3 ACO C3 ACO [facility] C3 [facility]CO [facility] Care Teams Vehicle Controls Engineer Relationship Specialty Start Date End Date Pcp, Unknown PCP - General 08/21/22 Additional Source Comments The information contained in this document represents components of the legal health record. It is not the complete legal health record.[facility]
--- OUTSIDE RECORDS SUMMARY | 2025-02-19 11:32 | XMS_ITS | Encounter Summary ---
Author Organization [employer] Address [address] [place] [address] Care Team Providers Care Claim Representative Name Role Phone Yadi Hyatt MD Primary Care Pro vider Reason for Visit * Reason Comments Med Refill Encounter Details Date Type Department Care Team ([facility] st Contact Info) Description 01/08/2023 Refill [facility] [address] [place] [address] Ame Rubin FNP Social History Tobacco Use [...] documented as of this encounter Care Teams Claim Representative Relationship Specialty Start Date End Date Yadi Hyatt MD [address] [place] [id number] PCP - General Internal Medicine 10/19/22 documented as of this encounter
--- OUTSIDE RECORDS SUMMARY | 2025-02-19 11:32 | XMS_ITS | Encounter Summary ---
Author Organization [employer] Address [address] [place] [address] Care Team Providers Care Beekeeper Farmer Name Role Phone Yadi Hyatt MD Primary Care Pro vider Reason for Visit * Reason Comments Med Refill Encounter Details Date Type Department Care Team ([facility] Contact Info) Description 02/15/2025 Refill [facility] [address] [place] [address] Brenden Aguirre MD [address] [place] [address] Social History Tobacco Use Types Packs/Day Years [...] Answer Date Recorded Patient Health Questionnaire-9 Score 15 12/18/2024 Patient Health Questionnaire-9 Score 15 12/18/2024 Last PHQ-9: Questionnaire Data Not on file 0 12/18/2024 Housing Stability Answer Date Recorded What is your housing situation today? I have lew sandra 11/12/[address] you li ve. Do you have problems with any of the following? None of the above 11/12/2024 Food Insecurity Answer Date Recorded Within the [...] getting things needed for daily living? No 11/12/2024 Utilities Answer Date Recorded In the past 12 months, has t he electric, gas, oil or water company threatened to shut off services in your home? No 03/07/2024 Depression Answer Date Recorded Patient Health Questionnaire-2 Score 5 12/18/2024 Internet Access Answer Date Recorded Internet Access [...] Assessment Noted Time PHQ-9 Depression Total Score: 15 025 9:57 AM EDT documented as of this encounter Care Teams Beekeeper Farmer Relationship Specialty Start Date End Date Yadi Hyatt MD [address] [place] [phone] PCP - General Internal Medicine 10/19/22 documented as of this encounter
--- OUTSIDE RECORDS SUMMARY | 2025-02-19 11:32 | XMS_ITS | Encounter Summary ---
Author Organization [employer] Address [address] [place] [address] Care Team Providers Care Account Representative Name Role Phone Yadi Hyatt MD Primary Care Pro vider Reason for Visit * Reason Comments Med Change Request Encounter Details Date Type Department Care Team ([facility] Contact Info) Description 03/29/2024 Refill [facility] [address] [place] [address] Yadi Hyatt MD [address] [place] [address] Social History Tobacco Use Types Packs/Day Years [...] documented as of this encounter Care Teams Account Representative Relationship Specialty Start Date End Date Yadi Hyatt MD [address] [place] [id number] PCP - General Internal Medicine 10/19/22 documented as of this encounter
--- OUTSIDE RECORDS SUMMARY | 2025-02-19 11:32 | XMS_ITS | Clinical Summary ---
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 famotidine (Pepcid) 20 MG tabletIndicatio ns:Gastroesopha geal reflux disease without esophagitis TAKE 1 TABLET BY MOUTH EVERYDAY AT BEDTIME 90 tablet 05/28/20 23 Active albuterol 108 (90 Base) MCG/ACT inhalerIndicati ons:Asthma, unspecified asthma severity, unspecified whether complicated, unspecified whether persistent,Numb ness and tingling of hand Inhale 2 puffs every 4 (four) hours if needed for wheezing or shortness of breath. 18 g 2 03/07/20 24 025 Active cyclobenzaprine (Flexeril) 10 MG tablet Take 1 tablet (10 mg) by mouth 3 times daily for 10 days. 30 tablet 03/11/20 24 Active naproxen (Naprosyn) 500 MG tabletIndicatio ns:Left knee pain, unspecified chronicity Take 1 tablet by oral route twice daily as needed for moderate pain 30 tablet 1 11/13/19 25 Active lidocaine-prilo vonda (Emla) 2.5-2.5 % cream Apply topically if needed each day for mild pain. 30 g 12/10/19 25 Active lidocaine (Lidoderm) 5 % patch Apply 1 patch topically Once per day. Remove & discard patch within 12 hours or as directed by . 30 patch 2 12/10/19 25 Active predniSONE (Deltasone) 20 MG tablet 2 tabs po daily for 5 days 10 tablet 12/10/19 25 Active nicotine (Nicoderm CQ) 14 MG/24HR patch Place 1 patch on the skin 1 (one) time each day at the same time. 42 patch 01/08/20 25 Active nicotine (Nicoderm CQ) 7 MG/24HR patch Place 1 patch on the skin 1 (one) time each day at the same time. 14 patch 01/08/20 25 Active nicotine polacrilex (Commit) 2 MG lozenge Dissolve 1 lozenge (2 mg) in the mouth if needed for smoking cessation. 100 lozenge 01/08/20 25 Active acetaminophen (Tylenol) 500 MG tablet Take 2 tablets (1,000 mg) by mouth every 6 (six) hours if needed for moderate pain or fever for up to 25 doses. 50 tablet 01/08/20 25 Active Nirmatrelvir&Ri tonavir 300/100 (Paxlovid, 300/100,) 20 x 150 MG & 10 x 100MG tablet therapy pack Take 300 mg by mouth 2 times daily. Take 3 tablets 2x/day for 5 days 30 each 01/08/20 25 Active liver oil-zinc oxide (Desitin) 40 % ointment Apply topically if needed for irritation. 56 g 01/13/20 25 Active varenicline (Chantix) 0.5 MG tabletIndicatio ns:Tobacco use disorder TAKE 1 TABLET BY MOUTH ONCE DAILY ON DAYS 1 THROUGH 3 THEN 1 TABLET TWICE DAILY ON DAYS 4 THROUGH 7 AND FINALLY 2 TABLETS BY MOUTH TWICE DAILY ON DAY 8 UNTIL THE END OF TREATMENT. 12 tablet 2 01/22/20 25 Active varenicline (Chantix) 1 MG tabletIndicatio ns:Tobacco use disorder TAKE 1 TABLET (1 MG) BY MOUTH 2 TIMES DAILY. 0.5 MG PO ONCE DAILY ON DAYS 1 THROUGH 3, THEN 0.5 MG PO TWICE DAILY ON DAYS 4 THROUGH 7, AND FINALLY 1 MG PO TWICE DAILY ON DAY 8 UNTIL THE END OF TREATMENT. 60 tablet 2 01/22/20 25 Active Diclofenac Sodium 1 % gel APPLY 1 APPLICATION TOPICALLY IF NEEDED EACH DAY (BACK PAIN). 100 g 02/04/20 25 Active Diclofenac Sodium 1 % gel APPLY 1 APPLICATION TOPICALLY IF NEEDED EACH DAY (BACK PAIN). 100 g 01/07/20 25 025 Discontinued clotrimazole (Lotrimin) 1 % cream Apply topically 2 times daily for 28 days. 30 g 01/13/20 25 025 varenicline (Chantix) 1 MG tabletIndicatio ns:Tobacco use disorder Take 1 tablet (1 mg) by mouth 2 times daily. 0.5 mg PO once daily on Days 1 through 3, then 0.5 mg PO twice daily on Days 4 through 7, and finally 1 mg PO twice daily on day 8 until the end of treatment. 60 tablet 2 01/21/20 25 025 Discontinued varenicline (Chantix) 0.5 MG tabletIndicatio ns:Tobacco use disorder Take 0.5 mg PO once daily on Days 1 through 3, then 0.5 mg PO twice daily on Days 4 through 7, and finally 1 mg PO twice daily on day 8 until the end of treatment. 12 tablet 2 01/21/20 25 025 Discontinued Active Problems Problem Noted Date Diagnosed Date COVID-19 virus infection 01/12/2025 Assessment & Plan (01/20/2025 2:22 PM EDT): Resolving. Ok to return to work. Assessment & Plan (01/12/2025 3:54 PM EDT): Since 01/06/25, Has 1d left of Paxlovid, recommended to complete antiviral course. Recommended to stay at home for at least 5 more days, increase water/fluid intake and advance diet as tolerated, she will go to ED if he is too weak to get up or is getting very difficult to wake him up. Rx prednisone 20 mg x 5 days to improve nasal congestion, headache. Continue Tylenol alternated with Motrin as needed body aches, headache. Return to clinic if he develops fever, discussed about potential complication from COVID including sinusitis or bronchitis that can be seen usually after 2 weeks. Rx Paxlovid x 5 days, [place] interactions module checked, no significant interactions found. Isolation until 01/17/25 and she/he will be out of work until then. Rest (sleep at least 8 hours a night). Wash hands frequently Use saline nose drops Gargle with salt water and use throat sprays/lozenges prn Use heated, humidified air or take hot showers. Fissure of skin 01/12/2025 Assessment & Plan (01/12/2025 3:57 PM EDT): On sacrococcygeal area, use clotrimazole cream + Desitin ointment twice daily x 1 week then as needed Acute left-sided low back pain with left-sided s ciatica 12/09/2024 JOSE (generalized anxiety disorder) 11/28/2024 Carpal tunnel syndrome 12/13/2022 Assessment & Plan [...] diet and exercise,discussed healthy life style -discussed crystal evaluator referral --referred already -pd to get apt -Gained 4 lb in the last mo. Assessment & Plan (12/13/2022 1:20 PM EDT): Advised pt to improve diet and exercise,discussed healthy life style -discussed crystal evaluator referral --referred already -pd to get apt -lost 9 pounds in last month -states decrease food portions Assessment & Plan (11/10/2022 5:23 PM EDT): Advised pt to improve diet and exercise,discussed healthy life style -discussed crystal evaluator referral --referred today Loud snoring 11/10/2022 Assessment [...] irritable took one dose and stopped -saw At previous visit -denies need to f [...] and psychopharmacology services. At this time Ranjit Hernandez meets criteria for Visit Diagnoses: Problem List Items Addressed This Visit Other Moderate episode of recurrent major depressive disorder ([facility]) Patient ready to address current needs Yes [...] Pateint will request to speak with a [facility] during next PCP visit, if needed Assessment [...] symptoms persist will consider GI referral Encounters * This document contains information received from the source organization and may not represent a complete record from that organization. Date Type Department Care Team Description 02/15/2025 Refill [facility] WALK[facility] CENTER [address] [place] [phone] Brenden Aguirre MD 02/13/2025 Travel 02/13/2025 Telephone [facility] MEDICINE [address] [place] [phone] Yadi Hyatt MD Referral 02/03/2025 Refill [facility] WALK[facility] CENTER [address] [place] [address] [phone] Yadi Hyatt MD 01/29/2025 Telephone [facility] MEDICINE [address] [place] [phone] Yadi Hyatt MD Referral 01/28/2025 Telephone [facility] MEDICINE [address] [place] [address] [phone] Juju Strong MD 01/27/[address] [address] Juju Strong MD 01/20/2025 1:40 PM EDT Office Visit [facility] W[facility] [address] [place] [address] [phone] Juju Strong MD COVID-19 virus infection (Primary Dx); Tobacco use disorder 01/20/2025 [facility] [address] [place] [address] [phone] Juju Strong MD Tobacco use disorder 01/20/2025 Travel 01/12/2025 3:00 PM EDT Office Visit [facility] WALKIN CENTER [address] [place] [phone] Arabella Suazo MD COVID-19 virus infection (Primary Dx); Fissure of skin 01/12/2025 Travel 01/07/2025 3:20 PM EDT [facility] [address] [place] [phone] Brenden Aguirre MD COVID-19 virus infection (Primary Dx); Cigarette smoker 01/07/2025 Travel 01/05/2025 Refill [facility] [address] [place] [phone] Yadi Hyatt MD 12/23/2024 Population Health Risk Score Community [facility] () Department [address] [place] [phone] Provider, Population Health Generic 12/18/2024 Telephone [facility] MEDICINE [address] [place] [phone] Yadi Hyatt MD FMLA (I informed the patient, that the FMLA application is ready to be picked up at [facility].) 12/16/2024 [facility] Health Information Management [address] [place] [address] Angelina Cruz MA FMLA (I called the patient, regarding a FMLA application from [employer]. He needs to state whether the time that he is requesting will be taking, will be continuous or intermittent. He stated that he is requesting continuous time, because he works 4 days a week, and is scheduled for PT for 3 days a week.) 12/16/2024 Telephone [facility] MEDICINE [address] [place] [phone] Yadi Hyatt MD Prior Authorization 12/09/2024 2:20 PM EDT Office Visit [facility] WALK-IN [address] [phone] Yadi Hyatt MD Lumbar radiculopathy (Primary Dx); Obesity (BMI 30-39.9); Acute left-sided low back pain with left-sided sciatica; Left knee pain, unspecified chronicity 12/09/2024 Telephone [facility] [address] [place] [phone] Yadi Hyatt MD CONCERNS 12/09/2024 Travel 12/03/2024 Travel from Last 3 Months Immunizations Immunization Administration Dates Next Due Influenza injectable quadrivalent [...] Sign Reading Time Taken Comments Blood Pressure 134/79 01/20/2025 1:43 PM EDT Pulse 97 01/20/2025 1:43 PM EDT Temperature 36.7 C (98 F) 01/20/2025 1:43 PM EDT Respiratory Rate 16 01/20/2025 1:43 PM EDT Oxygen Saturation 96% 01/20/2025 1:43 PM EDT Inhaled Oxygen Concentration - - Weight 117 kg (258 lb 6.4 oz) 01/20/2025 1:43 PM EDT Height 180.3 cm (5' 11 ) 01/20/2025 1:43 PM EDT Body Mass Index 36.04 01/20/2025 1:43 PM EDT Plan of Treatment Health Maintenance Due Date Last Done Comments Alcohol/Substance Use Screening 1996 Family Planning (PISQ) 09/20/1999 HPV Vaccines (1 - Male 3-dos e series) 09/20/1999 DTaP/Tdap/Td Vaccines (1 - Tdap) 09/20/2003 Hepatitis B Vaccines (1 of 3 - 19+ 3-dose series) 09/20/2003 COVID-19 Vaccine (1 - 2024-2 5 season) 2025 Influenza Vaccine (#1) 2025 03/09/2023 Depression Monitoring 06/20/2025 12/18/2024 , 12/18/2024 SDOH Screening 11/12/2025 11/12/2024 Disability Screening 12/09/2025 12/09/2024 Tobacco Screening 01/20/2026 01/20/2025 Lipid Panel 10/07/2027 10/06/2022 Zoster Vaccines (1 of 2) 2034 RSV Patients and Patients Aged 60 years or older (1 - 1-dose 75+ series) 09/20/2059 HIV Screening Completed 10/06/2022 Hepatitis C Screening Completed 10/06/2022 Pneumococcal Vaccine: Pediatrics (0 to 5 Years) and At-Risk Patients (6 to 49) Years Completed 12/13/2022 HIB Vaccines Aged Out No longer eligi ble based on patient's age to complete this topic Hepatitis A Vaccines Aged Out No long er eligible based on patient's age to complete this topic IPV Vaccines Aged Out No longer eligi ble based on patient's age to complete this topic Meningococcal B Vaccine Aged Out No l onger eligible based on patient's age to complete [...] Procedure Name Priority Date/Time Associated Diagnosis Comments POCT RAPID STREP A Routine 01/07/2025 3: 32 PM EDT COVID-19 virus infection POCT INFLUENZA B (ID NOW RAPID MOLECULAR) Routine 01/07/2025 3:32 PM EDT COVID-19 virus infection POCT INFLUENZA A (ID NOW RAPID MOLECULAR) Routine 01/07/2025 3:32 PM EDT COVID-19 virus infection POCT RAPID COVID ANTIGEN Routine 01/07/2025 3:32 PM EDT COVID-19 virus infection HEPATITIS C AB W/REFL TO HCV RNA, QN, PCR Routine 10/06/2022 9:32 AM EDT Routine health maintenance HIV 1 RNA, QN PCR W/REFLEX TO GENOTYPE Routine 10/06/2022 9:32 AM EDT Routine health maintenance LIPID PANEL, STANDARD Routine 10/06/2022 9:32 AM EDT Routine health maintenance from Last 3 Months or Most Recently Relevant to Health Maintenance Results * Influenza B (ID NOW Rapid Molecular) (01/07/2025 3:32 PM EDT) Influenza B Negative Negative, Indeterminate [facility] Swab 01/07/2025 3:32 PM EDT us Brenden Aguirre MD POINT OF CARE TEST ENTER/EDIT OR DERABLES Final Result Performing Organization Address [facility]/ZIP Co de Phone Number [facility] [address] [place] [phone] * Influenza A (ID NOW Rapid Molecular) (01/07/2025 3:32 PM EDT) Pathologist [facility] Influenza A Negative Negative, Indeterminate [facility] Swab 01/07/2025 3:32 PM EDT us Brenden Aguirre MD POINT OF CARE TEST ENTER/EDIT OR DERABLES Final Result Performing Organization Address [facility]/ZIP Co de Phone Number [facility] [address] [place] [phone] * (ABNORMAL) POCT Rapid COVID Ag (01/07/2025 3:32 PM EDT) Rapid COVID Ag Positive [facility] Swab 01/07/2025 3:32 PM EDT us Brenden Aguirre MD POINT OF CARE TEST ENTER/EDIT OR DERABLES Final Result [facility] [address] [place] [phone] * POCT rapid strep A manually resulted (01/07/2025 3:32 PM EDT) Pathologist [facility] Rapid Strep A Screen Negative Negative, None Detected Swab 01/07/2025 3:32 PM EDT us Brenden Aguirre MD POINT OF CARE TEST ENTER/EDIT OR DERABLES Final Result * HIV-1 RNA, Quantitative, PCR with Reflex to Genotype (10/06/2022 9:32 AM EDT) Pathologist [facility] HIV 1 RNA, QN PCR Not Detected Copies/mL [facility] HIV 1 RNA, QN PCR Not Detected Log cps/mL [facility] Comment: Reference Range: Not Detected copies/mL Not Detected Log copies/mL The test was performed using Real-Time Polymerase Chain Reaction. Reportable Range: 20 copies/mL to 10,000,000 copies/mL (1.30 Log copies/mL to 7.00 Log copies/mL). 10/06/2022 9:32 AM EDT 10/06/2022 9:33 AM EDT us Ame Barry [facility]IN[facility] LAB BLOOD ORDERABLES Final Res ult [facility] [address] [place] [address] [facility] [id number] [place] [phone] * Hepatitis C Antibody with Reflex to HCV, RNA, Quantitative, Real-Time PCR (10/06/2022 9:32 AM EDT) Pathologist [facility] Hepatitis C Antibody NON-REACT YANI NON-REACT YANI [facility] [employer] [place] [facility] Index 0.11 <1.00 [facility] Comment: HCV antibody was non-reactive. There is no laboratory evidence of HCV infection. In most cases, no further action is required. However, if recent HCV exposure is suspected, a test for HCV RNA (test code 40722) is suggested. For additional information please refer to http://[employer]/faq/RUS20i7 (This link is being provided for informational/ educational purposes only.) Blood Venous blood specimen / Unknown 10/06/2022 9:32 AM EDT 10/06/2022 9:33 AM EDT Ame Barry [facility] LAB BLOOD ORDERABLES Final Res ult [facility] [address] [place] [address] [facility] [place] [email or web address] Prell [address] [place] [phone] * Lipid Panel, Standard (10/06/2022 9:32 AM EDT) [facility] Cholesterol, Total 157 <200 mg/dL [facility] [place] [facility] HDL Cholesterol 41 > OR = 40 mg/dL [facility] [place] [facility] Triglycerides 101 <150 mg/dL [facility] [place] [facility] LDL Cholesterol 97 mg/dL (calc) [facility] [place] [facility] Comment: Reference range: <100 Desirable range <100 mg/dL for primary prevention; <70 mg/dL for patients with CHD or diabetic patients with > or = 2 CHD risk factors. LDL-C is now calculated using the Margarita calculation, which is a validated novel method providing better accuracy than the Friedewald equation in the estimation of LDL-C. Luis Enrique ACOSTA et al. LYSSA. 2013;310(19): 3494-1057 (http://education.Qqbaobao.com/faq/XYB152) Chol/HDLC Ratio 3.8 <5.0 (calc) [facility] [place] [facility] Non-HDL Cholesterol 116 <130 mg/dL (calc) [facility] [place] [facility] Comment: For patients with diabetes plus 1 major ASCVD risk factor, treating to a non-HDL-C goal of <100 mg/dL (LDL-C of <70 mg/dL) is considered a therapeutic option. Blood Venous blood specimen / Unknown 10/06/2022 9:32 AM EDT 10/06/2022 9:33 AM EDT us Ame Barry CURRENCY EXAMINER LAB BLOOD ORDERABLES Final Res ult [facility] [address] [place] [address] [facility] [place] [facility] [address] [place] [phone] from Last 3 Months or Most Recently Relevant to Health Maintenance [facility] Care Teams [employer] Arc Relationship Specialty Start Date End Date Yadi Hyatt MD [address] [place] [phone] PCP - General Internal Medicine 10/19/22
== END 2025-02-19 10:44 | disposition home or self-care (01) ==
LOC: HO.HOS 10:13
PROVIDERS: PCP Student in an Organized Health Care Education/Training Program; Visit Provider Orthopaedic Surgery
DX: M25.562 Pain in left knee (principal)
CPT/HCPCS: 99213; G2211

== ENCOUNTER → 2025-02-19 10:13 | Outpatient (BNVA) | payer OTHER, SELFPAY | PROVIDERS: PCP Student in an Organized Health Care Education/Training Program; Visit Provider Orthopaedic Surgery | DX: M25.562 Pain in left knee (principal) | CPT/HCPCS: 99212 ==

== ENCOUNTER 2025-04-10 08:36 | Outpatient (AMB) | payer OTHER, SELFPAY ==
--- NOTE | 2025-04-10 08:55 | A.OFFVIS_ITS ---
Intake Visit Reasons: New prob-Low back pain Intake Note: Ranjit is a 39 year old male who presents today as a new problem for his lower back pain, WC Injury. Patient was referred by 02/20/25. 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 He attempted to continue working and when he tried to lift the 2nd package extreme sharp pain followed. His pain radiates into the lower extremities, mainly into left. Numbness and tingling occasioanlly located in the calf, left hip and back with mild burning. He is up by 6 am by 2 pm he can not bear pain anymore. Was treated by [facility], did PT with them for roughly 2 months and he does not feel improvement. MRI done at [facility]. Patient has tried to maintain with pain with cyclobenzaprine, ibuprofen and diclofenac sodium however he says it just makes him sleepy. Allergies meloxicam Adverse Reaction (Verified 04/10/25 09:08) Numbness Medication List - Last Reconciled 04/10/25 by Loly Hylton MD acetaminophen (Tylenol Extra Strength) 500 mg PO Q6H PRN albuterol sulfate 90 mcg/actuation inhalation cyclobenzaprine 10 mg PO BEDTIME PRN lidocaine-prilocaine 2.5-2.5 % topical ONCE HPI Comments Details: Previously seen for CTS 2023. Here today for a different and new case for low back pain. Admits to previous back pain before this WC injury. That was about 1-2 years ago, had xray, referred to PT,, and it got better. He remembers the pain was similar. But did not have low back pain prior to this WC injury, dated 12/04/2024. Seen at [facility], for PT, almost 2 months. He progress was up and down, he explains that he was getting used to the pain . Last lumbar xray available dated 11/2023. MRI done at [facility], see below. He points to lower back, going down to left ankle. Sometimes feels numbness (ants and burning), especially during work. Denies weakness, no foot drop. No bladder/bowel changes. He would have episodes 10/10 of sharp pain in the back, affecting mobility, but only happened twice, last one was January. The radiation to leg with numbness always after/during at work for several hours . 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 Patient was appropriately conversant and oriented. Good historian. MSK: No specific abnormalities found on inspection of the spine and all extremities. Lumbar ROM was full. Bilateral hip, knee and ankle ROM WNL. No ligamentous laxity or crepitance. No increased effusion. Straight-leg raising test positive left. FABERE test negative. Strength is 5/5 in all muscle groups tested. No increased tone noted. Neurological: Neurologic examination of the upper and lower extremities was nonfocal with intact sensation, muscle stretch reflexes and without focal motor deficits . Huff?s negative bilaterally. Babinski was down going bilaterally. Clonus was negative. Gait is non-antalgic without loss of balance. Results Reviewed Results Reviewed: EXAM: MRI LUMBAR SPINE WITHOUT CONTRAST CLINICAL INFORMATION: Lumbar radiculopathy. Persistent low\left lower extremity pain following work-related injury TECHNICAL INFORMATION: 1. Sagittal and axial T1. 2. Sagittal and axial T2. 3. Sagittal STIR. SEDATION:?None. COMPARISON: No existing relevant imaging immediately accessible. INTERPRETATION: The conus shows normal tapering and ends at L1. Included cord has normal internal signal and cauda equina is unremarkable. No spinal canal collections or intradural masses. Straightening of normal lordotic curvature with preserved vertebral body heights. No indication of fractures. Small Schmorl's nodes seen at L3-4, L4-5 w ith 2-3 mm degenerative retrolisthesis at L3-4 through L5-S1. Pronounced type II discogenic endplate reaction seen at L4-5 and L5-S1, lesser changes L3-4. Marrow signal elsewhere unremarkable. L5-S1: Moderate disc degeneration with posterior discosteophyte ridging mildly narrowing subarticular recesses. S1 nerve roots encroached upon without indication of high-grade impingement. Neural foramina however show moderate- severe stenosis greater right with impingement of exiting right L5 nerve. Facet joints maintain normal alignment and show no significant degeneration. L4-5: Severe disc degeneration with retrolisthesis and broad discosteophyte severely narrowing subarticular recesses. Transiting L5 nerve roots impinged. There is moderate biforaminal stenosis. Facet joints maintain normal alignment and show no significant degeneration. L3-4: Mild to moderate disc degeneration, retrolisthesis, posterior bulge and no significant spinal canal stenosis. There is no neural compression. Left neural foramen minimally narrowed by discosteophyte ridging. Facet joints maintain normal alignment and show no significant degeneration. L2-3: Mild disc degeneration with posterior bulge but no protrusion, spinal canal or foraminal narrowing. L1-2: Disc height and hydration are preserved. No disc contour abnormality, spinal canal or foraminal stenosis is identified. T12-L1 and T11-12: Mild disc disc height loss. No posterior disc protrusion, significant spinal canal or foraminal narrowing. No prevertebral or paraspinous soft tissue masses. Included pelvis intact and marrow signal normal. Superior portions of sacroiliac joints show no effusions, subarticular edema or sclerosis. Left pelvic kidney anomaly noted CONCLUSION: 1. L4-5, severe disc degeneration and subarticular recess narrowing due to retrolisthesis and discosteophyte. Transiting L5 nerves impinged and neural foramina moderately stenotic. 2. L5-S1, moderate-severe biforaminal stenoses greater right where exiting L5 nerve impinged. 3. Anomalous left pelvic kidney Electronically signed on 02/08/2025 9:33:00 AM by Bernardino Hollins M.D. Independently reviewed the results of the following: Lumbar MRI showed broad-based disc bulge L4-5 and L5-S1 with foraminal stenosis. I reviewed records from the following: Have seen ortho Dr. Alba for left knee pain, s/p surgery 04/2024. Told need to rule out RA, referred to rheumatology. Assessment & Plan Assessment & Plan (1) Lumbar degenerative disc disease: Code(s): M51.36 - Other intervertebral disc degeneration, lumbar region Category: Medical (2) Lumbar radiculitis: Code(s): M54.16 - Radiculopathy, lumbar region Category: Medical Plan Chronic recurrent lower back pain, further exacerbated by work injury as reported above. Fortunately no red flags or no neurologic deficits. Positive left SLR. He is on adequate conservative management including physical therapy without lasting relief. We discussed trial of L4-5 lumbar interlaminar epidural steroid injection to help with the pain. Patient is eager to try. We can refer him to our pain management department here or to Dr. Robledo, depending where worker's comp would approve. Briefly discussed that, given no neurological deficits, there is no urgent indication for neurosurgical referral. Assessment and plan discussed with patient, and patient was agreeable. All questions were answered thoroughly. Follow up after injection. Loly Hylton MD, ANGELES Board Certified, [place] Board of Physical Medicine and Rehabilitation (ABPMR) Board Certified, [place] Board of Electrodiagnostic Medicine (ABEM) Orders: Referrals Pain Management Referral M51.36 - Other intervertebral disc degeneration, lumbar region, M54.16 - Radiculopathy, lumbar region Coding Level of Care Code New Pt Level 4 (10987) Diagnoses Lumbar degenerative disc disease M51.36 Lumbar radiculitis M54.16
== END 2025-04-10 09:39 | disposition home or self-care (01) ==
LOC: HO.HOS 08:36
PROVIDERS: PCP Student in an Organized Health Care Education/Training Program; Visit Provider Physical Medicine & Rehabilitation
DX: M51.369 Other intervertebral disc degeneration, lumbar region without mention of lumbar back pain or lower extremity pain (principal); M54.16 Radiculopathy, lumbar region
CPT/HCPCS: 99214

== ENCOUNTER → 2025-04-10 08:36 | Outpatient (BNVA) | payer OTHER, SELFPAY | PROVIDERS: PCP Student in an Organized Health Care Education/Training Program; Visit Provider Physical Medicine & Rehabilitation | DX: M54.16 Radiculopathy, lumbar region (principal); M51.360 Other intervertebral disc degeneration, lumbar region with discogenic back pain only | CPT/HCPCS: 99212 ==

== ENCOUNTER 2025-04-17 09:04 | Outpatient (AMB) | payer OTHER, SELFPAY ==
--- OUTSIDE RECORDS SUMMARY | 2022-08-21 15:00 | XMS_ITS | Encounter Summary ---
Author Organization [facility] Address [address] [facility] [address] [place] [phone] Phone Care Team Providers Care Overlay Operator Name Role Phone Pcp, Unknown Primary Care Provider Unavailabl e Encounter Details Date Type Department Care Team (Late st Contact Info) Description 08/21/2022 2:00 PM EST Hospital Encounter [facility] [address] [place] [phone] Hali Reagan CNP [address] [place] [phone] Social History Tobacco Use Types Packs/Day Years [...] knee. Small suprapatellareffusion. Osteoarthritis. us Hali Reagan MODEL SET ARTIST IMG XR LOWER EXTREMITY Gloria l Result documented in this encounter Visit Diagnoses Not on filedocumented in this encounter Care Teams Overlay Operator Relationship Specialty Start Date End Date Pcp, Unknown PCP - General 08/21/22 documented as of this encounter Additional Source Comments The information contained in this document represents components of the legal health record. It is not the complete legal health record.[facility]
--- NOTE | 2025-04-17 09:08 | A.OFFVIS_ITS ---
Vital Signs 04/17/25 09:12 Height 5 ft 11 in Weight 245 lb BMI 34.2 Intake Visit Reasons: OV-Low back pain WC Intake Note: Ranjit is a 39 year old male who presents today as a follow up for his lower back pain, WC case. Patient was in office on 04/13/25 stating that he clocked in at work for 8:00 and due to the pain he was sent home at 8:20. Our office offered the patient two appointments on but he declined and asked for today's appointment. At today's visit he states that he felt that his lower back pain was starting to heal but on Sunday the pain was very intense. He states that the left lower back pain is radiating into the left leg and now the pain is sharp to stabbing sensation. He noted that his left thigh has a tingling to burning sensation but the pain is very sporadic. Patient would like to add that he did attend work on Sunday for his full shift and Sunday, he could only work half day due to the pain. Allergies meloxicam Adverse Reaction (Verified 04/10/25 09:08) Numbness Medication List - Last Reconciled 04/17/25 by Loly Hylton MD acetaminophen (Tylenol Extra Strength) 500 mg PO Q6H PRN albuterol sulfate 90 mcg/actuation inhalation cyclobenzaprine 10 mg PO BEDTIME PRN lidocaine-prilocaine 2.5-2.5 % topical ONCE HPI Comments Details: Previously seen for CTS 2023. Then seen for WC case for low back pain. Admits to previous back pain before this WC injury. That was about 1-2 years ago, had xray, referred to PT,, and it got better. He remembers the pain was similar. But did not have low back pain prior to this WC injury, dated 12/04/2024. Seen at [facility], for PT, almost 2 months. He progress was up and down, he explains that he was getting used to the pain . Last lumbar xray available dated 11/2023. MRI done at [facility], see below. He pointed to lower back, going down to left ankle. Sometimes feels numbness (ants and burning), especially during work. Denies weakness, no foot drop. No bladder/bowel changes. He would have episodes 10/ of sharp pain in the back, affecting mobility, but only happened twice, last one was January. The radiation to leg with numbness always after/during at work for several hours. I just saw him last week, but unfortunately pain has exacerbated. Same distribution. He was given Medrol back on December but ended up coughing out blood. Possible GI bleed? Denies any further bleeding now. Taking cyclobenzaprine 10 mg q.h.s. which does make him sleepy. 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 Patient was appropriately conversant and oriented. Good historian. MSK: No specific abnormalities found on inspection of the spine and all extremities. Lumbar ROM was full. Bilateral hip, knee and ankle ROM WNL. No ligamentous laxity or crepitance. No increased effusion. Straight-leg raising test positive left. FABERE test negative. Strength is 5/5 in all muscle groups tested. No increased tone noted. Neurological: Neurologic examination of the upper and lower extremities was nonfocal with intact sensation, muscle stretch reflexes and without focal motor deficits . Huff?s negative bilaterally. Babinski was down going bilaterally. Clonus was negative. Gait is antalgic without loss of balance. Vital Signs: BMI result Body Mass Index 34.2 Results Reviewed Results Reviewed: EXAM: MRI LUMBAR SPINE WITHOUT CONTRAST CLINICAL INFORMATION: Lumbar radiculopathy. Persistent low\left lower extremity pain following work-related injury TECHNICAL INFORMATION: 1. Sagittal and axial T1. 2. Sagittal and axial T2. 3. Sagittal STIR. SEDATION:?None. COMPARISON: No existing relevant imaging immediately accessible. INTERPRETATION: The conus shows normal tapering and ends at L1. Included cord has normal internal signal and cauda equina is unremarkable. No spinal canal collections or intradural masses. Straightening of normal lordotic curvature with preserved vertebral body heights. No indication of fractures. Small Schmorl's nodes seen at L3-4, L4-5 with 2-3 mm degenerative retrolisthesis at L3-4 through L5-S1. Pronounced type II discogenic endplate reaction seen at L4-5 and L5-S1, lesser changes L3-4. Mar row signal elsewhere unremarkable. L5-S1: Moderate disc degeneration with posterior discosteophyte ridging mildly narrowing subarticular recesses. S1 nerve roots encroached upon without indication of high-grade impingement. Neural foramina however show moderate- severe stenosis greater right with impingement of exiting right L5 nerve. Facet joints maintain normal alignment and show no significant degeneration. L4-5: Severe disc degeneration with retrolisthesis and broad discosteophyte severely narrowing subarticular recesses. Transiting L5 nerve roots impinged. There is moderate biforaminal stenosis. Facet joints maintain normal alignment and show no significant degeneration. L3-4: Mild to moderate disc degeneration, retrolisthesis, posterior bulge and no significant spinal canal stenosis. There is no neural compression. Left neural foramen minimally narrowed by discosteophyte ridging. Facet joints maintain normal alignment and show no significant degeneration. L2-3: Mild disc degeneration with posterior bulge but no protrusion, spinal canal or foraminal narrowing. L1-2: Disc height and hydration are preserved. No disc contour abnormality, spinal canal or foraminal stenosis is identified. T12-L1 and T11-12: Mild disc disc height loss. No posterior disc protrusion, significant spinal canal or foraminal narrowing. No prevertebral or paraspinous soft tissue masses. Included pelvis intact and marrow signal normal. Superior portions of sacroiliac joints show no effusions, subarticular edema or sclerosis. Left pelvic kidney anomaly noted CONCLUSION: 1. L4-5, severe disc degeneration and subarticular recess narrowing due to retrolisthesis and discosteophyte. Transiting L5 nerves impinged and neural foramina moderately stenotic. 2. L5-S1, moderate-severe biforaminal stenoses greater right where exiting L5 nerve impinged. 3. Anomalous left pelvic kidney Electronically signed on 02/08/2025 9:33:00 AM by Bernardino Hollins M.D. Independently reviewed the results of the following: Lumbar MRI showed broad-based disc bulge L4-5 and L5-S1 with foraminal stenosis. I reviewed records from the following: Have seen ortho Dr. Alba for left knee pain, s/p surgery 04/2024. Told need to rule out RA, referred to rheumatology. Assessment & Plan Assessment & Plan (1) Lumbar degenerative disc disease: Code(s): M51.36 - Other intervertebral disc degeneration, lumbar region Category: Medical (2) Lumbar radiculitis: Code(s): M54.16 - Radiculopathy, lumbar region Category: Medical Plan On last visit, I referred him to pain management for lumbar epidural injection. We are still waiting for approval and scheduling? Unfortunately I can not give him more oral prednisone because possible GI bleed when he took Medrol last December. Advised to discuss with PCP. We will increase cyclobenzaprine to 10 mg b.i.d., caution though that it makes him sleepy, not to operate machinery when it does. Reduce work capacity to maximum of 8 hours per day, and no lifting beyond 25 lb. Assessment and plan discussed with patient, and patient was agreeable. All questions were answered thoroughly. Follow up after injection. Loly Hylton MD, ANGELES Board Certified, [place] Board of Physical Medicine and Rehabilitation (ABPMR) Board Certified, [place] Board of Electrodiagnostic Medicine (ABEM) Medications: Changed From cyclobenzaprine 10 mg PO BEDTIME PRN 14 tabs 2RF muscle spasm To cyclobenzaprine 10 mg PO BID 60 tabs 2RF muscle spasm Coding Level of Care Code Est Pt Level 4 (23221) Diagnoses Lumbar degenerative disc disease M51.36 Lumbar radiculitis M54.16
[2025-04-17 09:12] VITALS: BMI 34.2
--- OUTSIDE RECORDS SUMMARY | 2025-04-17 09:48 | XMS_ITS | Clinical Summary ---
Author Organization [facility] Address [address] [place] [phone] Phone Care Team Providers Care Camp Assistant Name Role Phone Pcp, Unknown Primary Care [...] HIV ONE-TIME SCREENING (18-6 5 YEARS) 2002 INFLUENZA VACCINE (#1) 2025 COVID-19 VACCINE (1 - 2024-2 6 season) 2025 SMOKING STATUS SCREENING (On ce After [...] ACO C3 ACO C3 ACO C3 ACO [facility] C3 ACO [facility] Care Teams Camp Assistant Relationship Specialty Start Date End Date Pcp, Unknown PCP - General 08/21/22 Additional Source Comments The information contained in this document represents components of the legal health record. It is not the complete legal health record.[facility]
== END 2025-04-17 09:56 | disposition home or self-care (01) ==
LOC: HO.HOS 09:04
PROVIDERS: PCP Student in an Organized Health Care Education/Training Program; Visit Provider Physical Medicine & Rehabilitation
DX: M51.360 Other intervertebral disc degeneration, lumbar region with discogenic back pain only (principal); M54.16 Radiculopathy, lumbar region
CPT/HCPCS: 99214

== ENCOUNTER → 2025-04-17 09:04 | Outpatient (BNVA) | payer OTHER, SELFPAY | PROVIDERS: PCP Student in an Organized Health Care Education/Training Program; Visit Provider Physical Medicine & Rehabilitation | DX: M54.16 Radiculopathy, lumbar region (principal); M51.360 Other intervertebral disc degeneration, lumbar region with discogenic back pain only | CPT/HCPCS: 99212 ==

== ENCOUNTER 2025-05-19 06:55 | Outpatient (REF) | payer OTHER, SELFPAY ==
--- OUTSIDE RECORDS SUMMARY | 2022-08-21 14:00 | XMS_ITS | Encounter Summary ---
Author Organization [facility] Address [address] [facility] [address] [place] [phone] Phone Care Team Providers Care Movie Shot Camera Operator Name Role Phone Pcp, Unknown Primary Care Provider Unavailabl e Encounter Details Date Type Department Care Team (Late st Contact Info) Description 08/21/2022 2:00 PM EST Hospital Encounter [facility] [address] [place] [id number] Hali Reagan CNP [address] [place] [phone] [email or web address] Social History Tobacco Use Types Packs/Day Years Used Date Smoking Tobacco: Never Smokeless Tobacco: Never Education Answer Date Recorded Are you interested in more education? Not on ian e 10/14/2022 Are you concerned about learning? Not on file 10/14/2022 No 10/14/2022 No 10/14/2022 Digital Access Answer Date Recorded No 11/14/2022 No 11/14/2022 Reliable internet access at home? Not on file 11/14/2022 Device with a working camera? Not on file Sex and Gender Information Value Date Recorded Sex Assigned at Male 07/17/2024 11:59 AM EST Legal Sex Male 12:36 PM EST Gender Identity Male 07/17/2024 11:59 AM EST Sexual Orientation Straight 07/17/2024 12 :00 PM EST documented as of this encounter Plan of Treatment Not on file documented as of this encounter Procedures Procedure Name Priority Date/Time Associated Diagnosis Comments XR KNEE 4 OR MORE VIEWS (LEFT) Urgent/patient waiting 08/21/2022 2:10 PM EST Acute pain of left knee documented in this encounter Results * XR KNEE 4 OR MORE VIEWS (LEFT) (08/21/2022 2:10 PM EST) Anatomical Region Laterality Modality Knee Left Computed Radiogr aphy 08/21/2022 2:12 PM EST Impressions 08/21/2022 2:14 PM EST FINDINGS/IMPRESSION: No displaced fracture or malalignment of the knee. Small suprapatellar effusion. Osteoarthritis. Narrative 08/21/2022 2:14 PM EST XR KNEE 4 OR MORE VIEWS (LEFT) COMPARISON: None. Procedure Note Oziel Garner MD - 08/21/2022 XR KNEE 4 OR MORE VIEWS (LEFT) COMPARISON: None. IMPRESSION: FINDINGS/IMPRESSION: No displaced fracture or malalignment of the knee. Small suprapatellareffusion. Osteoarthritis. us Hali Reagan C WPF DEVELOPER IMG XR LOWER EXTREMITY Gloria l Result documented in this encounter Visit Diagnoses Not on filedocumented in this encounter Care Teams Movie Shot Camera Operator Relationship Specialty Start Date End Date Pcp, Unknown PCP - General 08/21/22 documented as of this encounter Additional Source Comments The information contained in this document represents components of the legal health record. It is not the complete legal health record.[facility]
--- NOTE | ~2025-05-19 | FL_ITS ---
EXAMINATION: FLUOROSCOPY GUIDANCE FOR NEEDLE PLACEMENT CLINICAL INFORMATION: M54.16 - Radiculopathy, lumbar region COMPARISON: The lumbar spine x-ray October 2022 TECHNIQUE: Fluoroscopy guidance provided for pain management procedure FINDINGS: 2 submitted fluoroscopic images demonstrate needle projecting over the left posterior lower lumbar sacral spine. See procedure note for detailed findings. FLUOROSCOPY TIME: 27 seconds DOSE AREA PRODUCT: [id number] mGy-cm2 FL/FL guidance in treatment room IMPRESSION: Fluoroscopy guidance for pain management procedure. Electronically signed by: Lilo Fountain MD 05/19/2025 01:26 PM [facility]
--- OUTSIDE RECORDS SUMMARY | 2025-05-19 06:57 | XMS_ITS | Encounter Summary ---
Author Organization [employer] Address [address] [place] [address] Care Team Providers Care [place] Stayer Machine Operator Name Role Phone Yadi Hyatt MD Primary Care Pro vider Reason for Visit * Reason Comments Med Change Request Encounter Details Date Type Department Care Team ([facility] Contact Info) Description 03/29/2024 Refill [facility] [address] [place] [phone] Yadi Hyatt MD [address] [place] [address] Social History Tobacco Use Types Packs/Day Years [...] documented as of this encounter Care Teams [place] Stayer Machine Operator Relationship Specialty Start Date End Date Yadi Hyatt MD [address] [place] [id number] PCP - General Internal Medicine 10/19/22 documented as of this encounter
--- OUTSIDE RECORDS SUMMARY | 2025-05-19 06:57 | XMS_ITS | Encounter Summary ---
Author Organization [employer] Address [address] [place] [address] Care Team Providers Care Digital Advertising Specialist Name Role Phone Yadi Hyatt MD Primary Care Pro vider Reason for Visit * Reason Comments Med Refill Encounter Details Date Type Department Care Team ([facility] Contact Info) Description 01/08/2023 Refill [facility] [address] [place] [address] Ame Rubin FNP Social History Tobacco Use [...] documented as of this encounter Care Teams Digital Advertising Specialist Relationship Specialty Start Date End Date Yadi Hyatt MD [address] [place] [phone] PCP - General Internal Medicine 10/19/22 documented as of this encounter
--- OUTSIDE RECORDS SUMMARY | 2025-05-19 06:57 | XMS_ITS | Encounter Summary ---
Author Organization [employer] Address [address] [place] [address] Care Team Providers Care Bioinformatics Support Specialist Name Role Phone Yadi Hyatt MD Primary Care Pro vider Reason for Visit * Reason Comments Med Refill Encounter Details Date Type Department Care Team ([facility] Contact Info) Description 04/12/2025 Refill [facility] [address] [place], [place] [phone] Juju Strong MD [address] [place], [place] [phone] Tobacco use disorder Social History Tobacco Use Types Packs/Day Years [...] Answer Date Recorded Patient Health Questionnaire-9 Score 16 03/12/2025 Patient Health Questionnaire-9 Score 16 03/12/2025 Last PHQ-9: Questionnaire Data Not on file 0 03/12/2025 Housing Stability Answer Date Recorded What is [...] Answer Date Recorded Patient Health Questionnaire-2 Score 4 03/12/2025 Internet Access Answer Date Recorded Internet Access [...] documented as of this encounter Visit Diagnoses Diagnosis Tobacco use disorder documented in this encounter Additional Health Concerns Assessment Noted Time PHQ-9 Depression Total Score: 16 025 2:13 PM EDT documented as of this encounter Care Teams Bioinformatics Support Specialist Relationship Specialty Start Date End Date Yadi Hyatt MD [address] [place] [phone] PCP - General Internal Medicine 10/19/22 documented as of this encounter
--- OUTSIDE RECORDS SUMMARY | 2025-05-19 06:57 | XMS_ITS | Clinical Summary ---
Author Organization [employer] Address [address] [place] [address] Care Team Providers Care Label Drier Name Role Phone Yadi Hyatt MD Primary Care Pro vider Allergies No known active allergies Medications * This document contains information received from the source organization and may not represent a complete record from that organization. famotidine (Pepcid) 20 MG tabletIndication s:Gastroesophage al reflux disease without esophagitis TAKE 1 TABLET BY MOUTH EVERYDAY AT BEDTIME 90 tablet 3 Active albuterol 108 (90 Base) MCG/ACT inhalerIndicatio ns:Asthma, unspecified asthma severity, unspecified whether complicated, unspecified whether persistent,Numbn ess and tingling of hand Inhale 2 puffs every 4 (four) hours if needed for wheezing or shortness of breath. 18 g 2 4 Active cyclobenzaprine (Flexeril) 10 MG tablet Take 1 tablet (10 mg) by mouth 3 times daily for 10 days. 30 tablet 4 Active naproxen (Naprosyn) 500 MG tabletIndication s:Left knee pain, unspecified chronicity Take 1 tablet by oral route twice daily as needed for moderate pain 30 tablet 1 5 Active lidocaine-priloc rush (Emla) 2.5-2.5 % cream Apply topically if needed each day for mild pain. 30 g 5 Active lidocaine (Lidoderm) 5 % patch Apply 1 patch topically Once per day. Remove & discard patch within 12 hours or as directed by . 30 patch 2 5 Active predniSONE (Deltasone) 20 MG tablet 2 tabs po daily for 5 days 10 tablet 5 Active nicotine (Nicoderm CQ) 14 MG/24HR patch Place 1 patch on the skin 1 (one) time each day at the same time. 42 patch 5 Active nicotine (Nicoderm CQ) 7 MG/24HR patch Place 1 patch on the skin 1 (one) time each day at the same time. 14 patch 5 Active nicotine polacrilex (Commit) 2 MG lozenge Dissolve 1 lozenge (2 mg) in the mouth if needed for smoking cessation. 100 lozenge 5 Active acetaminophen (Tylenol) 500 MG tablet Take 2 tablets (1,000 mg) by mouth every 6 (six) hours if needed for moderate pain or fever for up to 25 doses. 50 tablet 5 Active liver oil-zinc oxide (Desitin) 40 % ointment Apply topically if needed for irritation. 56 g 5 Active varenicline (Chantix) 0.5 MG tabletIndication s:Tobacco use disorder TAKE 1 TABLET BY MOUTH ONCE DAILY ON DAYS 1 THROUGH 3 THEN 1 TABLET TWICE DAILY ON DAYS 4 THROUGH 7 AND FINALLY 2 TABLETS BY MOUTH TWICE DAILY ON DAY 8 UNTIL THE END OF TREATMENT. 12 tablet 2 5 Active varenicline (Chantix) 1 MG tabletIndication s:Tobacco use disorder TAKE 1 TABLET (1 MG) BY MOUTH 2 TIMES DAILY. 0.5 MG PO ONCE DAILY ON DAYS 1 THROUGH 3, THEN 0.5 MG PO TWICE DAILY ON DAYS 4 THROUGH 7, AND FINALLY 1 MG PO TWICE DAILY ON DAY 8 UNTIL THE END OF TREATMENT. 60 tablet 2 5 Active Diclofenac Sodium 1 % gel APPLY 1 APPLICATION TOPICALLY IF NEEDED EACH DAY (BACK PAIN). 100 g 5 Active Active Problems Problem Noted Date Diagnosed [...] 2 weeks. Rx Paxlovid x 5 days, Shelby interactions module checked, no significant interactions found. [...] diet and exercise,discussed healthy life style -discussed fish and wildlife biologist referral --referred already -pd to get apt -Gained 4 lb in the last mo. Assessment & Plan (12/13/2022 1:20 PM EDT): Advised pt to improve diet and exercise,discussed healthy life style -discussed fish and wildlife biologist referral --referred already -pd to get apt -lost 9 pounds in last month -states decrease food portions Assessment & Plan (11/10/2022 5:23 PM EDT): Advised pt to improve diet and exercise,discussed healthy life style -discussed fish and wildlife biologist referral --referred today Loud snoring 11/10/2022 Assessment [...] med -weight loss advised Moderate episode of recurren t major depressive disorder ([facility]) 11/10/2022 Assessment & Plan (03/10/2023 8:15 PM EDT): PHQ9: 3 <--- 13-chronic ,denies hallucinations,babar nor SI Tried cutting wrist when was a teenager Duloxetine caused to feel irritable took one dose and stopped Pt states he is feeling much better since he started Escitalopram. -saw BH already. -pt was referred at previous visit [...] and psychopharmacology services. At this time Ranjit Shayan [place] meets criteria for Visit Diagnoses: Problem List Items Addressed This Visit Other Moderate episode of recurrent major depressive disorder (CMS/HCC) Patient ready to address current needs Yes Strengths include ability to express self and request help PLAN: 1. Follow up with [facility]: Not recommended for follow-up 2. Patient goal is to engage in behavioral health services 3. Behavioral Recommendations a. Patient will comply with medication, once started b. Patient will engage in OP therapy and medication management, once established c. Pateint will request to speak with a [facility] during next PCP visit, if needed [...] organization. Date Type Department Care Team Description 04/23/2025 Telephone [facility] [address] [place] [id number] Yadi Hyatt MD Prior Authorization 04/16/2025 10:15 AM EDT Office Visit [facility] [address] [place] [address] Alida Roche MD Chronic midline low back pain without sciatica (Primary Dx) 04/16/2025 Travel 04/12/2025 Refill [facility] [address] [place] [address] Juju Strong MD Tobacco use disorder 04/06/2025 1:20 PM EDT Office Visit [facility] [address] [place] [phone] Tila Ricci FNP Generalized abdominal pain (Primary Dx) 04/06/2025 Travel from Last 3 Months Immunizations Immunization [...] your housing situation today? I have lew sing 11/12/[address] you li [...] Sign Reading Time Taken Comments Blood Pressure 122/83 04/06/2025 1:34 PM EDT Pulse 69 04/06/2025 1:34 PM EDT Temperature 36.8 C (98.2 F) 04/06/2025 1:34 PM EDT Respiratory Rate 16 04/06/2025 1:34 PM EDT Oxygen Saturation 96% 01/20/2025 1:43 PM EDT Inhaled Oxygen Concentration - - Weight 112 kg (246 lb) 04/06/2025 1:34 PM EDT Height 180.3 cm (5' 11 ) 01/20/2025 1:43 PM EDT Body Mass Index 34.31 01/20/2025 1:43 PM EDT Plan of Treatment Health Maintenance Due Date Last Done Comments Alcohol/Substance Use Screening 1996 Family Planning (PISQ) 09/20/1999 HPV Vaccines (1 - Male 3-dos e series) 09/20/1999 DTaP/Tdap/Td Vaccines (1 - Tdap) 09/20/2003 Hepatitis B Vaccines (1 of 3 - 19+ 3-dose series) 09/20/2003 COVID-19 Vaccine (1 - 202-2 6 season) 2025 Influenza Vaccine (#1) 2025 03/09/2023 Depression Monitoring 09/09/2025 03/12/2025 , 03/12/2025 SDOH Screening 11/12/2025 11/12/2024 Disability Screening 12/09/2025 12/09/2024 Tobacco Screening 04/16/2026 04/16/2025 Lipid Panel 10/07/2027 10/06/2022 Zoster Vaccines (1 [...] Procedure Name Priority Date/Time Associated Diagnosis Comments HEPATITIS C AB W/REFL TO HCV RNA, QN, PCR Routine 10/06/2022 9:32 AM EDT Routine health maintenance HIV 1 RNA, QN PCR W/REFLEX TO GENOTYPE Routine 10/06/2022 9:32 AM EDT Routine health maintenance LIPID PANEL, STANDARD Routine 10/06/2022 9:32 AM EDT Routine health maintenance from Last 3 Months or Most Recently Relevant to Health Maintenance Results * HIV-1 RNA, Quantitative, PCR with Reflex to Genotype (10/06/2022 9:32 AM EDT) HIV 1 RNA, QN PCR Not Detected Copies/mL [facility] HIV 1 RNA, QN PCR Not Detected Log cps/mL [facility] Comment: Reference Range: Not Detected copies/mL Not Detected Log copies/mL The test was performed using Real-Time Polymerase Chain Reaction. Reportable Range: 20 copies/mL to 10,000,000 copies/mL (1.30 Log copies/mL to 7.00 Log copies/mL). 10/06/2022 9:32 AM EDT 10/06/2022 9:33 AM EDT Ame Barry [facility] LAB BLOOD ORDERABLES Final Res ult [facility] [address], [place] [address] [employer] [facility] [address] [place] [address] * Hepatitis C Antibody with Reflex to HCV, RNA, Quantitative, Real-Time PCR (10/06/2022 9:32 AM EDT) Pathologist [facility] [place] Hepatitis C Antibody NON-REACT YANI NON-REACT YANI [employer] [place] [facility] Index 0.11 <1.00 [employer] [facility] [place] [facility] Comment: HCV antibody was non-reactive. There is no laboratory evidence of HCV infection. In most cases, no further action is required. However, if recent HCV exposure is suspected, a test for HCV RNA (test code 89803) is suggested. For additional information please refer to http://education.Aireon/faq/DRS38g0 (This link is being provided for informational/ educational purposes only.) Blood Venous blood specimen / Unknown 10/06/2022 9:32 AM EDT 10/06/2022 9:33 AM EDT Ame Barry [facility] LAB BLOOD ORDERABLES Final Res ult Performing Organization Address [facility]/ZIP Co de Phone Number [facility] [address], [facility] [place] [address] [employer] [place] [facility] [address] [place] [address] * Lipid Panel, Standard (10/06/2022 9:32 AM EDT) [facility] Cholesterol, Total 157 <200 mg/dL [employer] [place] [facility] HDL Cholesterol 41 > OR = 40 mg/dL [employer] [facility] [place] [facility] Triglycerides 101 <150 mg/dL [facility] [place] [facility] LDL Cholesterol 97 mg/dL (calc) [facility] [place] [facility] Comment: Reference range: <100 Desirable range <100 mg/dL for primary prevention; <70 mg/dL for patients with CHD or diabetic patients with > or = 2 CHD risk factors. LDL-C is now calculated using the Luis Enrique-Jean calculation, which is a validated novel method providing better accuracy than the Friedewald equation in the estimation of LDL-C. Luis Enrique SS et al. LYSSA. 2013;310(19): 7979-1906 (http://education.Draft/faq/MOI585) Chol/HDLC Ratio 3.8 <5.0 (calc) [facility] [place] [facility] Non-HDL Cholesterol 116 <130 mg/dL (calc) [employer] [facility] [place] [facility] Comment: For patients with diabetes plus 1 major ASCVD risk factor, treating to a non-HDL-C goal of <100 mg/dL (LDL-C of <70 mg/dL) is considered a therapeutic option. Blood Venous blood specimen / Unknown 10/06/2022 9:32 AM EDT 10/06/2022 9:33 AM EDT Ame Barry [facility] LAB BLOOD ORDERABLES Final Res ult Performing Organization Address [facility] de Phone Number [address], [facility] [place] [address] [facility] [address] [place] [phone] from Last 3 Months or Most Recently Relevant to Health Maintenance Insurance [facility] C3 [employer] [place] [id number] [place] [address] [place] [address] Care Teams Label Drier Relationship Specialty Start Date End Date Yadi Hyatt MD [address] [place] [phone] PCP - General Internal Medicine 10/19/22
--- OUTSIDE RECORDS SUMMARY | 2025-05-19 06:57 | XMS_ITS | Encounter Summary ---
Author Organization [employer] Address [address] [place] [address] Care Team Providers Care Arrt Technologist Name Role Phone Yadi Hyatt MD Primary Care Pro vider Reason for Visit * Reason Comments Med Refill Encounter Details Date Type Department Care Team ([facility] Contact Info) Description 02/15/2025 Refill [facility] [address] [place] [address] Brenden Aguirre MD [address] [place] [address] Social History Tobacco Use Types Packs/Day Years [...] documented as of this encounter Care Teams Arrt Technologist Relationship Specialty Start Date End Date Yadi Hyatt MD [address] [place] [address] PCP - General Internal Medicine 10/19/22 documented as of this encounter
--- OUTSIDE RECORDS SUMMARY | 2025-05-19 06:57 | XMS_ITS | Clinical Summary ---
Author Organization [facility] Address [address] [place] [address] Phone Care Team Providers Care Multimedia Services Coordinator Name Role Phone Pcp, Unknown Primary Care [...] ACO C3 ACO C3 ACO C3 ACO [facility] [place] C3 ACO [facility] INSURANCE Care Teams Multimedia Services Coordinator Relationship Specialty Start Date End Date Pcp, Unknown PCP - General 08/21/22 Additional Source Comments The information contained in this document represents components of the legal health record. It is not the complete legal health record.[facility]
== END 2025-05-19 06:56 | disposition home or self-care (01) ==
LOC: CF 06:55
PROVIDERS: Visit Provider Anesthesiology
DX: M51.16 Intervertebral disc disorders with radiculopathy, lumbar region (principal)
CPT/HCPCS: 62323; J2003; J3301; Q9967

== ENCOUNTER 2025-05-19 10:15 | Outpatient (AMB) | payer OTHER, SELFPAY ==
[2025-05-19 10:51] VITALS: BP 137/75; PULSE 70; RESP 16; O2SAT 96; BMI 34.2
--- NOTE | 2025-05-19 10:51 | MHC.OFFVIS ---
Vital Signs 05/19/25 10:51 05/19/25 12:03 Height 5 ft 11 in Weight 245 lb BMI 34.2 BP 137/75 159/95 H Blood Pressure Location Lt brachial Lt brachial Position Sitting Sitting Respiration 16 16 Pulse 70 72 Pulse Source Pulse Oximeter Pulse Oximeter Pulse Oximetry (%) 96 96 Oxygen Delivery Method Room Air Room Air Intake Visit Reasons: L4-L5 Interlaminar GALO Allergies meloxicam Adverse Reaction (Verified 04/10/25 09:08) Numbness PFSH Medical History Carpal tunnel syndrome on both sides Asthma Surgical History Surgical history unknown Social History (Updated 04/10/25 @ 09:08 by MICHEAL Rendon) Alcohol intake: current Alcohol intake frequency: holidays/special occasions only Patient Tobacco Use Status: Current everyday Tobacco user Tobacco use type: Cigarette Cigarettes Per Day: 8 Substance Use Type: Marijuana Current occupational status: employed 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 Physical Exam Vital Signs: Last Vital Signs Pulse 72 05/19/25 12:03 Resp 16 05/19/25 12:03 BP 159/95 H 05/19/25 12:03 Pulse Ox 96 05/19/25 12:03 Oxygen Delivery Method Room Air 05/19/25 12:03 BMI result Body Mass Index 34.2 Assessment & Plan Assessment & Plan (1) Lumbar radiculitis: Code(s): M54.16 - Radiculopathy, lumbar region Category: Medical (2) Lumbar degenerative disc disease: Code(s): M51.36 - Other intervertebral disc degeneration, lumbar region Category: Medical (3) Radiculopathy, lumbar region: Code(s): M54.16 - Radiculopathy, lumbar region Category: Medical Plan Interlaminar epidural steroid injection L4-5 The patient came to the operating room after obtaining informed consent. The risk of the procedure were delineated as risk of bleeding infection peripheral nerve damage epidural hematoma spinal cord damage epidural abscess spinal cord damage and headache. The patient was positioned on the operating table prone with pillow under the abdomen. Time-out was performed delineating correct side and site of the procedure, date of of the patient, need of antibiotics , risk of fire . The patient's lower back was prepped with ChloraPrep and draped with sterile utility towels. C-arm was brought over the operating field and sq picture of L5 vertebra was delineated on the screen. The right upper border of the L5 lamina as close to spinal process as possible was chosen as the projection to the skin target of the initial needle insertion. The site was injected with lidocaine 1% forming a skin wheal. After that 22 gauge 10 cm Touhy needle was inserted through the skin wheal and advanced toward the interlaminar space under intermittent anterior posterior and lateral views. Loss of resistance to air technique was used to locate the epidural space. When the tip of the needle reached interlaminar line and loss of resistance was felt injection of the contrast was performed and it was demonstrated epidurogram on the lateral view. After that injection of the 6 cc of lidocaine 1% mixed with Kenalog 40 mg was performed into the epidural space. Upon completion of the injection needle was removed and sterile Band-Aid was applied. Patient tolerated procedure well. Orders: Orders FL guidance in treatment room Today M54.16 - Radiculopathy, lumbar region Coding Level of Care Code Procedure Only Diagnoses Lumbar radiculitis M54.16 Lumbar degenerative disc disease M51.36 Radiculopathy, lumbar region M54.16
[2025-05-19 12:03] VITALS: BP 159/95; PULSE 72; RESP 16; O2SAT 96
== END 2025-05-19 12:09 | disposition home or self-care (01) ==
LOC: HO.PMCPRC 10:15
PROVIDERS: PCP Student in an Organized Health Care Education/Training Program; Visit Provider Anesthesiology
DX: M54.16 Radiculopathy, lumbar region (principal); M51.369 Other intervertebral disc degeneration, lumbar region without mention of lumbar back pain or lower extremity pain
CPT/HCPCS: 62323

== ENCOUNTER 2025-05-21 09:13 | Outpatient (AMB) | payer OTHER, SELFPAY ==
--- OUTSIDE RECORDS SUMMARY | 2022-08-21 14:00 | XMS_ITS | Encounter Summary ---
Author Organization [facility] Address [address] [place] [phone] Phone Care Team Providers Care Bet Taker Name Role Phone Pcp, Unknown Primary Care Provider Unavailabl e Encounter Details Date Type Department Care Team (Late st Contact Info) Description 08/21/2022 2:00 PM EST Hospital Encounter [facility] [address] [place] [phone] Hali Reagan CNP [address] [place] [phone] [email or web address] Social History Tobacco Use Types Packs/Day Years [...] knee. Small suprapatellareffusion. Osteoarthritis. us Hali Reagan JOB RECRUITER IMG XR LOWER EXTREMITY Gloria l Result documented in this encounter Visit Diagnoses Not on filedocumented in this encounter Care Teams Bet Taker Relationship Specialty Start Date End Date Pcp, Unknown PCP - General 08/21/22 documented as of this encounter Additional Source Comments The information contained in this document represents components of the legal health record. It is not the complete legal health record.[facility]
--- OUTSIDE RECORDS SUMMARY | 2025-05-19 09:00 | XMS_ITS | Encounter Summary ---
Author Organization [employer] Address [address] [place] [address] Care Team Providers Care Box Annealer Name Role Phone Yadi Hyatt MD Primary Care Pro vider Reason for Visit * Reason Comments Acupuncture Encounter Details Date Type Department Care Team ([facility] Contact Info) Description 05/19/2025 9:00 AM EST Office Visit [facility] [address] [place] [address] Alida Roche MD [address] [place] [address] Chronic midline low back pain without sciatica (Primary Dx) Social History Tobacco Use Types Packs/Day Years [...] PM EDT documented as of this encounter Progress Notes * Alida Roche MD - 05/19/2025 9:00 AM EST Subjective Patient ID: Varghese Hernandez is a 39 y.o. male who presents for Acupuncture. Ranjit is here for acupuncture treatment #2 for back pain. He felt some temporary pain reduction andrelaxation after the first treatment. Review of Systems Musculoskeletal: Positive for back pain. Objective Physical Exam Constitutional: Appearance: Normal appearance. Skin: General: Skin is warm and dry. Neurological: Mental Status: He is alert and oriented to person, place, and time. Assessment/Plan Diagnoses and all orders for this visit: Chronic midline low back pain without sciatica Written consent obtained for ear acupuncture. Ears prepped with alcohol pad. Five ear points needled bilaterally: Sympathetic, Llamas Men, Kidney, Liver and Lung. Treatment duration: 30 minutes. Good hemostasis. Patient tolerated well. Follow up weekly for repeat acupuncture treatments as desired. documented in this encounter Plan of Treatment Not on file documented as of this encounter Visit Diagnoses Diagnosis Chronic midline low back pain without sciatica- Primary documented in this encounter Additional Health Concerns Assessment Noted Time PHQ-9 Depression Total Score: 16 025 2:13 PM EDT documented as of this encounter Care Teams Box Annealer Relationship Specialty Start Date End Date Yadi Hyatt MD [address] [place] [phone] PCP - General Internal Medicine 10/19/22 documented as of this encounter
--- NOTE | 2025-05-21 09:17 | MHC.OFFVIS ---
Vital Signs 05/21/25 09:18 Height 5 ft 11 in Weight 245 lb BMI 34.2 Intake Visit Reasons: Left knee pain Intake Note: Ranjit 39 yr old male presents with complaints of left knee pain. He describes his pain as sharp in nature. He has failed the last 3 months of conservative treatment which has included Tylenol, anti-inflammatory medicine, muscle relaxants, a home exercise program and physical therapy exercises. He denies any locking or giving way. He did undergo left knee arthroscopic surgery on 04/25/2024. He got mild relief from that procedure. The patient did have a cortisone injection given into his left knee earlier this year which gave him minimal relief. At this point his left knee pain is interfering with his activities of daily living and his ability to sleep well through the night. Allergies meloxicam Adverse Reaction (Verified 05/21/25 09:27) Numbness Medication List - Last Reconciled 05/21/25 by Mark Alba MD acetaminophen (Tylenol Extra Strength) 500 mg PO Q6H PRN albuterol sulfate 90 mcg/actuation inhalation cyclobenzaprine 10 mg PO BID lidocaine-prilocaine 2.5-2.5 % topical ONCE PFSH Medical History Carpal tunnel syndrome on both sides Asthma Surgical History Surgical history unknown Social History Alcohol intake: current Alcohol intake frequency: holidays/special occasions only Patient Tobacco Use Status: Current everyday Tobacco user Tobacco use type: Cigarette Cigarettes Per Day: 8 Substance Use Type: Marijuana Current occupational status: employed 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 / [employer] Physical Exam Vital Signs: BMI result Body Mass Index 34.2 Const Other: Well-nourished well-developed very friendly male awake alert and oriented x3 in no acute distress Extrem Other: Left knee examination shows that the surgical incisions are well healed, no erythema, mild crepitus with range of motion, no instability Results Reviewed Results Reviewed: X-rays of the patient's left knee taken previously show joint space narrowing, subchondral sclerosis, no acute bony abnormalities Assessment & Plan Assessment & Plan (1) Left knee pain: Code(s): M25.562 - Pain in left knee Category: Medical (2) Osteoarthritis of left knee: Code(s): M17.12 - Unilateral primary osteoarthritis, left knee Category: Medical Plan Mr. Shayan Hernandez presents with left knee pain due to osteoarthritis. I had a lengthy discussion with the patient regarding the treatment options. I will see if the patient's insurance company will cover a viscosupplementation injection, such as Durolane. I will see him back once the injection is approved. Feel free to call me at any time should questions regarding his orthopedic management arise. I spent 20 minutes in reviewing the patient's records and imaging studies, seeing the patient and documenting in the medical record. Coding Level of Care Code Est Pt Level 3 (50375) Complex visit Add On G2211 Diagnoses Left knee pain M25.562 Osteoarthritis of left knee M17.12
[2025-05-21 09:18] VITALS: BMI 34.2
--- OUTSIDE RECORDS SUMMARY | 2025-05-21 10:07 | XMS_ITS | Encounter Summary ---
Author Organization [employer] Address [address] [place] [address] Care Team Providers Care Art Tracer Name Role Phone Yadi Hyatt MD Primary Care Pro vider Reason for Visit * Reason Comments Med Refill Encounter Details Date Type Department Care Team ([facility] Contact Info) Description 01/08/2023 Refill [facility] [address] [place] [address] Ame Rubin FNP Social History Tobacco Use [...] documented as of this encounter Care Teams Art Tracer Relationship Specialty Start Date End Date Yadi Hyatt MD [address] [place] [phone] PCP - General Internal Medicine 10/19/22 documented as of this encounter
--- OUTSIDE RECORDS SUMMARY | 2025-05-21 10:07 | XMS_ITS | Clinical Summary ---
Author Organization [facility] Address [address] [facility] [address] [place] [phone] Phone Care Team Providers Care Flexographic Printing Press Operator Name Role Phone Pcp, Unknown Primary [...] ACO C3 ACO C3 ACO C3 ACO [facility] C3 ACO [facility] INSURANCE Care Teams Flexographic Printing Press Operator Relationship Specialty Start Date End Date Pcp, Unknown PCP - General 08/21/22 Additional Source Comments The information contained in this document represents components of the legal health record. It is not the complete legal health record.[facility]
--- OUTSIDE RECORDS SUMMARY | 2025-05-21 10:07 | XMS_ITS | Encounter Summary ---
Author Organization [employer] Address [address] [place] [address] Care Team Providers Care Tray Service Worker Name Role Phone Yadi Hyatt MD Primary Care Pro vider Reason for Visit * Reason Comments Med Refill Encounter Details Date Type Department Care Team ([facility] Contact Info) Description 04/12/2025 Refill [facility] [address] [place], [place] [phone] Juju Strong MD [address] [place], [place] [phone] Tobacco use disorder Social History Tobacco Use [...] documented as of this encounter Care Teams Tray Service Worker Relationship Specialty Start Date End Date Yadi Hyatt MD [address] [place] [id number] PCP - General Internal Medicine 10/19/22 documented as of this encounter
--- OUTSIDE RECORDS SUMMARY | 2025-05-21 10:07 | XMS_ITS | Clinical Summary ---
Author Organization [employer] Address [address] [place] [address] Care Team Providers Care Commission Clerk Name Role Phone Yadi Hyatt MD Primary [...] 2 weeks. Rx Paxlovid x 5 days, [place] interactions module checked, no significant interactions found. [...] diet and exercise,discussed healthy life style -discussed monkey trainer referral --referred already -pd to get apt -Gained 4 lb in the last mo. Assessment & Plan (12/13/2022 1:20 PM EDT): Advised pt to improve diet and exercise,discussed healthy life style -discussed monkey trainer referral --referred already -pd to get apt -lost 9 pounds in last month -states decrease food portions Assessment & Plan (11/10/2022 5:23 PM EDT): Advised pt to improve diet and exercise,discussed healthy life style -discussed monkey trainer referral --referred today Loud snoring 11/10/2022 Assessment [...] episode of recurren t major depressive disorder ([facility]) 11/10/2022 Assessment & Plan (03/10/2023 [...] psychopharmacology services. At this time Ranjit Shayan [place] meets criteria for Visit Diagnoses: Problem List [...] organization. Date Type Department Care Team Description 05/19/2025 9:00 AM EST Office Visit [facility] [address] [place] [phone] Alida Roche MD Chronic midline low back pain without sciatica (Primary Dx) 04/23/[address] [address] Yadi Hyatt MD Prior Authorization 04/16/2025 10:15 AM EDT Office Visit [address] [address] Alida Roche MD Chronic midline low back pain without sciatica (Primary Dx) 04/16/2025 Travel 04/12/2025 Refill [facility] [address] [place] [phone] Juju Strong MD Tobacco use disorder 04/06/2025 1:20 PM EDT Office Visit [facility] [address] [place] [phone] Tila Ricci FNP Generalized abdominal pain (Primary [...] series) 09/20/2003 COVID-19 Vaccine (1 - 2024-2 6 season) 2025 Influenza Vaccine (#1) 2025 [...] QN PCR Not Detected Copies/mL [facility] [employer] [facility] HIV 1 RNA, QN PCR Not Detected Log cps/mL [facility] Comment: Reference Range: Not Detected copies/mL Not Detected Log copies/mL The test was performed using Real-Time Polymerase Chain Reaction. Reportable Range: 20 copies/mL to 10,000,000 copies/mL (1.30 Log copies/mL to 7.00 Log copies/mL). 10/06/2022 9:32 AM EDT 10/06/2022 9:33 AM EDT Ame Barry [facility] BLOOD ORDERABLES Final Res ult [facility] [address] [place] [address] [facility] [address] [place] [address] * Hepatitis C Antibody with Reflex to HCV, RNA, Quantitative, Real-Time PCR (10/06/2022 9:32 AM EDT) Hepatitis C Antibody NON-REACT YANI NON-REACT YANI [facility] [place] [facility] Index 0.11 <1.00 [facility] [place] [facility] Comment: HCV antibody was non-reactive. There is no laboratory evidence of HCV infection. In most cases, no further action is required. However, if recent HCV exposure is suspected, a test for HCV RNA (test code 44446) is suggested. For additional information please refer to http://education.Mediasmart.[employer]/faq/AJD62i2 (This link is being provided for informational/ educational purposes only.) Blood Venous blood specimen / Unknown 10/06/2022 9:32 AM EDT 10/06/2022 9:33 AM EDT us Ame [place] [facility] BLOOD ORDERABLES Final Res ult [facility] [address], [place] [address] [facility] [place] [facility] [address] [place] [address] * Lipid Panel, Standard (10/06/2022 9:32 AM EDT) Cholesterol, Total 157 <200 mg/dL [facility] [place] [facility] HDL Cholesterol 41 > OR = 40 mg/dL [facility] [place] [facility] Triglycerides 101 <150 mg/dL [facility] [place] [facility] LDL Cholesterol 97 mg/dL (calc) [facility] Comment: Reference range: <100 Desirable range <100 mg/dL for primary prevention; <70 mg/dL for patients with CHD or diabetic patients with > or = 2 CHD risk factors. LDL-C is now calculated using the Luis Enrique-Jean calculation, which is a validated novel method providing better accuracy than the Friedewald equation in the estimation of LDL-C. Luis Enrique SS et al. LYSSA. 2013;310(19): 4769-9022 (http://education.UsTrendy.[employer]/faq/JSE274) Chol/HDLC Ratio 3.8 <5.0 (calc) [facility] [place] [facility] Non-HDL Cholesterol 116 <130 mg/dL (calc) [employer] Comment: For patients with diabetes plus 1 major ASCVD risk factor, treating to a non-HDL-C goal of <100 mg/dL (LDL-C of <70 mg/dL) is considered a therapeutic option. Blood Venous blood specimen / Unknown 10/06/2022 9:32 AM EDT 10/06/2022 9:33 AM EDT us Ame Barry [facility] BLOOD ORDERABLES Final Res ult [facility] [address] [place] [address] [facility] [place] [facility] [address] [place] [address] from Last 3 Months or Most Recently Relevant to Health Maintenance Insurance [address] [place] [address] HSN PARTIAL [address] [place] [address] [employer] [place] [address] [place] [address] [place] [address] Care Teams Commission Clerk Relationship Specialty Start Date End Date Yadi Hyatt MD [address] [place] [phone] PCP - General Internal Medicine 10/19/22
--- OUTSIDE RECORDS SUMMARY | 2025-05-21 10:07 | XMS_ITS | Encounter Summary ---
Author Organization [employer] Address [address] 7[address] [place] [address] Care Team Providers Care Software Sales Consultant Name Role Phone Yadi Hyatt MD Primary Care Pro vider Reason for Visit * Reason Comments Med Refill Encounter Details Date Type Department Care Team ([facility] Contact Info) Description 02/15/2025 Refill [facility] [address] [place] [address] Brenden Aguirre MD [address] [place] [address] Social History Tobacco Use Types Packs/Day Years [...] documented as of this encounter Care Teams Software Sales Consultant Relationship Specialty Start Date End Date Yadi Hyatt MD [address] [place] [phone] PCP - General Internal Medicine 10/19/22 documented as of this encounter
--- OUTSIDE RECORDS SUMMARY | 2025-05-21 10:08 | XMS_ITS | Encounter Summary ---
Author Organization [employer] Address [address] [facility] 7 [place] [address] Care Team Providers Care Compliance Review Officer Name Role Phone Yadi Hyatt MD Primary Care Pro vider Reason for Visit * Reason Comments Med Change Request Encounter Details Date Type Department Care Team ([facility] Contact Info) Description 03/29/2024 Refill [facility] [address] [place] [address] Yadi Hyatt MD [address] [place] [address] Social History Tobacco Use Types Packs/Day Years [...] documented as of this encounter Care Teams Compliance Review Officer Relationship Specialty Start Date End Date Yadi Hyatt MD [address] [place] [phone] PCP - General Internal Medicine 10/19/22 documented as of this encounter
== END 2025-05-21 09:38 | disposition home or self-care (01) ==
LOC: HO.HOS 09:13
PROVIDERS: PCP Student in an Organized Health Care Education/Training Program; Visit Provider Orthopaedic Surgery
DX: M25.562 Pain in left knee (principal); M17.12 Unilateral primary osteoarthritis, left knee
CPT/HCPCS: 99213; G2211

== ENCOUNTER → 2025-05-21 09:13 | Outpatient (BNVA) | payer OTHER, SELFPAY | PROVIDERS: PCP Student in an Organized Health Care Education/Training Program; Visit Provider Orthopaedic Surgery | DX: M17.12 Unilateral primary osteoarthritis, left knee (principal); Z98.890 Other specified postprocedural states | CPT/HCPCS: 99212 ==

== ENCOUNTER 2025-06-03 09:09 | Outpatient (AMB) | payer OTHER, SELFPAY ==
--- NOTE | 2025-06-03 09:22 | MHC.OFFVIS ---
Vital Signs 06/03/25 09:23 Height 5 ft 11 in Weight 247 lb BMI 34.4 BP 123/77 Blood Pressure Location Rt brachial Position Sitting Respiration 16 Pulse 67 Pulse Source Pulse Oximeter Pulse Oximetry (%) 94 Oxygen Delivery Method Room Air Intake Visit Reasons: S/P L4-L5 Interlaminar GALO Content Strategist Required: No Accompanied by: Self / Same As Patient Allergies meloxicam Adverse Reaction (Verified 06/03/25 09:25) Numbness HPI Comments Details: Ranjit is very pleasant 39 years old gentleman who presents in my office after interlaminar L4-5 epidural steroid injection. She reports for days of pain relief after the injection. unfortunately neither passing L5 nerves nor exiting L4 nerves could be considered a source of radiculopathy for this patient. The following examination of the patient: He complains on pain in lower back with radiation down to the left lower extremity all the way to the ankle on the left, no radiation into the foot or toes. Because of his pain he is unable to sleep normally, he can not do activities of daily he is able to take care of himself he is able to function normally but with difficulty. He is working part-time. He is workman's comp case. His pain started at work when he was moving a box twisting his lower body. He reports pain today 6/10. Flexing forward hurts him more than flexing backwards. Standing, sitting, laying down, and walking all aggravate his pain. He reports that he feels pain alleviation when he lies down on the flat firm surface. He tried Tylenol for his pain and ibuprofen for his pain those did not work. He reported minimal improvement with lidocaine patches applied against his sacral bone. He had an MRI of the lumbar spine results of which dictated as below. He had physical therapy for the past 3 months and it helps his pain minimally to moderately. And it is as dictated above he had L4-5 epidural steroid injection from ca. His past medical history significant for asthma and arthritis. Surgical history is negative, he drinks soda, he consumes cannabis. [facility] Medical History Carpal tunnel syndrome on both sides Asthma Surgical History Surgical history unknown Social History (Reviewed 05/21/25 @ 09:27 by MARISSA Romero Alcohol intake: current Alcohol intake frequency: holidays/special occasions only Patient Tobacco Use Status: Current everyday Tobacco user Tobacco use type: Cigarette Cigarettes Per Day: 8 Substance Use Type: Marijuana Current occupational status: employed Current occupation: 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 / [employer] Review of Systems Const All systems reviewed & are unremarkable except as noted in HPI and below ENT Reports Normal hearing present Neuro Reports Normal hearing present, Denies Abnormal speech present, Denies confusion and Denies Sensory deficit (Neuro) Psych Denies confusion Physical Exam Vital Signs: Last Vital Signs Pulse 67 06/03/25 09:23 Resp 16 06/03/25 09:23 BP 123/77 06/03/25 09:23 Pulse Ox 94 06/03/25 09:23 Oxygen Delivery Method Room Air 06/03/25 09:23 BMI result Body Mass Index 34.4 Const General: no acute distress; No confusion Nutritional Appearance: average body habitus and obese ( Trivial obesity) Orientation/consciousness: patient oriented x3 and No confusion Eyes General: appearance normal, both eyes and all related structures Pupils: Equal, round and reactive pupils present EOM: EOMs intact bilaterally Neck Neck: Yes full ROM Chest Chest palpation & inspection: normal inspection of the chest Resp Effort & Inspection: normal respiratory effort, able to speak in complete sentences, normal respiratory pattern, no audible wheezes and no cough Cardio Jugular venous distension: no JVD GI Inspection: Yes normal to inspection Back/Spine/Pelvis Other: he is able to stand on bilateral tiptoes in bilateral heels without any difficulty. He is able to lift 1st on both lower extremities in separation from the rest of the toes. This demonstrates normal function of the L4, L5, S1 nerve roots. Tony test is negative bilaterally, however Gaenslen test is positive on the right and left, young woman test is positive on the left, pelvic compression test and pelvic distraction tests are both positive bilaterally. There is tenderness on palpation in the projection of the bilateral sacroiliac joints in the projection of sacral bone. The lumbar spine of the patient is not tender not palpation. Valsalva maneuver is negative for pain increase. SLR is negative bilaterally. Lasegue test is negative bilaterally. Neuro General: patient oriented x3, gait normal and No confusion Cranial nerves: Yes CN's II-XII intact bilaterally, Yes Equal, round and reactive pupils present, Yes Normal hearing present and Yes Ability to bilaterally elevate shoulders present Speech: No Abnormal speech present Gait exam (Neuro): Normal gait present Motor exam (neuro): 5/5 motor strength present throughout Sensory Exam: No Sensory deficit (Neuro) Extrem General: No pedal edema Psych Speech and movement: Normal speech and movement present Affect: normal affect Attitude: cooperative Thought process: Normal thought process present Thought content: Normal thought content present Insight: Good insight present (Psych) Judgement: Good judgement present (Psych) Results Reviewed Results Reviewed: MRI lumbar spine without contrast [facility] radiology 02/06/2025. Interpretation: The conus shows normal tapering of the end of L1. Included cord has normal internal signal and cauda equina is unremarkable. No spinal canal collection or intradural masses. Straightening of normal lordotic curvature with preservative-free body heights. No indication of fractures. Small Schmorl's nodes seen at L3-L4, L4-5, within 2 3 mm degenerative retrolisthesis at L3-L4 through L5-S1. Pronounced type 2 discogenic endplate reaction seen at L4-5 and L5-S1 lesser changes L3-L4. Marrow signal elsewhere unremarkable. L5-S1 moderate disc degeneration with posterior disc osteophyte ridging mildly narrowing subarticular recess. S1 nerve root encroaching upon without indication of high-grade impingement. Neural foramina however show moderate to severe stenosis greater right with impingement of exiting right L5 nerve root. Facet joints maintain normal alignment and show no significant degeneration. L4-5: Severe disc degeneration with retrolisthesis and brought disc osteophyte severely narrowing subarticular recesses. Transiting L5 nerve roots impinged. There is moderate biforaminal stenosis. Facet joint maintain normal alignment and show no significant degeneration. L3-L4 [id number] disc degeneration retrolisthesis posterior bulge and no significant spinal canal stenosis. There is no neural compression. Left neural foramina minimally narrowed by disc osteophyte ridging. Facet joints maintain normal alignment as showed no significant degeneration. L2-L3: Mild disc degeneration with posterior bulge but no protrusion spinal canal or foraminal narrowing. L1-L2: Disc height and hydration is preserved. No disc contour abnormality, spinal canal or foraminal stenosis is identified. T12-L1 and T11-T12. : My disc height loss, no posterior disc protrusion, significant spinal canal or neural foraminal narrowing. No prevertebral or paraspinal soft tissues masses. Included pelvic intact in marrow signal normal. Superior portion of the sacroiliac joints show no effusion subarticular edema or sclerosis. Assessment & Plan Assessment & Plan (1) Sacroiliitis: Code(s): M46.1 - Sacroiliitis, not elsewhere classified Category: Medical (2) Sacroiliac joint dysfunction of both sides: Code(s): M53.3 - Sacrococcygeal disorders, not elsewhere classified Category: Medical (3) Vertebrogenic low back pain: Code(s): M54.51 - Vertebrogenic low back pain Category: Medical (4) Lumbar degenerative disc disease: Code(s): M51.36 - Other intervertebral disc degeneration, lumbar region Category: Medical Plan Multiple pain generations come to my mind after examination of this patient however radiculopathy is not 1 of them. Considering that SLR and Lasegue test are negative bilaterally and there is no sensory or motor abnormalities on physical exam in bilateral lower extremities I would consider nerve root compression as the last source of the patient's pain despite the image otherwise dictated above. his pain generators could be from the bilateral sacroiliac joints, possibility of vertebra genic low back pain can not be excluded considering Modic type 2 changes at the levels of L3 through S1. I will start diagnostic process of this patient from bilateral diagnostic sacroiliac joint injection. I will examined myself images at [facility]. If diagnostic sacroiliac joint injections will not be effective I will offer the patient intercept procedure at L4-L5 and S1 vertebras. Patient Instructions: I here by testify that I spent 45 minutes in conversation with this patient as well as planning his care and organizing this note. Coding Level of Care Code New Pt Level 4 (26286) Diagnoses Sacroiliitis M46.1 Sacroiliac joint dysfunction of both sides M53.3 Vertebrogenic low back pain M54.51 Lumbar degenerative disc disease M51.36
[2025-06-03 09:23] VITALS: BP 123/77; PULSE 67; RESP 16; O2SAT 94; BMI 34.4
--- OUTSIDE RECORDS SUMMARY | 2025-06-03 10:03 | XMS_ITS | Encounter Summary ---
Author Organization [employer] Address [address] [place] [address] Care Team Providers Care Trimmer And Borer Machine Operator Name Role Phone Yadi Hyatt MD Primary Care Pro vider Reason for Visit * Reason Comments Med Refill Encounter Details Date Type Department Care Team ([facility] Contact Info) Description 02/15/2025 Refill [facility] [address] [place] [address] Brenden Aguirre MD [address] [place] [address] Social History Tobacco Use Types Packs/Day Years [...] documented as of this encounter Care Teams Trimmer And Borer Machine Operator Relationship Specialty Start Date End Date Yadi Hyatt MD [address] [place] [phone] PCP - General Internal Medicine 10/19/22 documented as of this encounter
--- OUTSIDE RECORDS SUMMARY | 2025-06-03 10:03 | XMS_ITS | Encounter Summary ---
Author Organization [employer] Address [address] [facility] 7 [place] [address] Care Team Providers Care Contracts Paralegal Name Role Phone Yadi Hyatt MD Primary Care Pro vider Reason for Visit * Reason Comments Med Change Request Encounter Details Date Type Department Care Team ([facility] Contact Info) Description 03/29/2024 Refill [facility] [address] [place] [address] Yadi Hyatt MD [address] [place] [address] Social History Tobacco Use Types Packs/Day Years [...] documented as of this encounter Care Teams Contracts Paralegal Relationship Specialty Start Date End Date Yadi Hyatt MD [address] [place] [phone] PCP - General Internal Medicine 10/19/22 documented as of this encounter
--- OUTSIDE RECORDS SUMMARY | 2025-06-03 10:03 | XMS_ITS | Clinical Summary ---
Author Organization [employer] Address [address] [place] [address] Care Team Providers Care Golf Course Mechanic Name Role Phone Yadi Hyatt MD Primary [...] 2 weeks. Rx Paxlovid x 5 days, Clarkrange interactions module checked, no significant interactions found. [...] diet and exercise,discussed healthy life style -discussed content producer referral --referred already -pd to get apt -Gained 4 lb in the last mo. Assessment & Plan (12/13/2022 1:20 PM EDT): Advised pt to improve diet and exercise,discussed healthy life style -discussed content producer referral --referred already -pd to get apt -lost 9 pounds in last month -states decrease food portions Assessment & Plan (11/10/2022 5:23 PM EDT): Advised pt to improve diet and exercise,discussed healthy life style -discussed content producer referral --referred today Loud snoring 11/10/2022 Assessment [...] episode of recurren t major depressive disorder ([facility]) 11/10/2022 Assessment & Plan (03/10/2023 8:15 PM [...] psychopharmacology services. At this time Ranjit Shayan Mary meets criteria for Visit Diagnoses: Problem List Items Addressed This Visit Other Moderate episode of recurrent major depressive disorder (CMS/HCC) Patient ready to address current needs Yes Strengths include ability to express self and request help PLAN: 1. Follow up with [facility]: Not recommended for follow-up 2. Patient goal is to engage in behavioral health services 3. Behavioral Recommendations a. Patient will comply with medication, once started b. Patient will engage in OP therapy and medication management, once established c. Pateint will request to speak with a [facility] during next PCP visit, if needed Assessment [...] Description 05/19/2025 9:00 AM EST Office Visit [facility] MEDICINE [address] [place] [id number] Alida Roche MD Chronic midline low back pain without sciatica (Primary Dx) 04/23/[address] [address] Yadi Hyatt MD Prior Authorization 04/16/2025 10:15 AM EDT Office Visit [address] [phone] Alida Roche MD Chronic midline low back pain without sciatica (Primary Dx) 04/16/2025 Travel 04/12/2025 Refill [facility] [address] [place] [phone] Juju Strong MD Tobacco use disorder 04/06/2025 1:20 PM EDT Office Visit [facility] [address] [place] [phone] Tila Ricci FNP Generalized abdominal pain (Primary [...] QN PCR Not Detected Copies/mL [facility] [facility] HIV 1 RNA, QN PCR Not Detected Log cps/mL [facility] Comment: Reference Range: Not Detected copies/mL Not Detected Log copies/mL The test was performed using Real-Time Polymerase Chain Reaction. Reportable Range: 20 copies/mL to 10,000,000 copies/mL (1.30 Log copies/mL to 7.00 Log copies/mL). 10/06/2022 9:32 AM EDT 10/06/2022 9:33 AM EDT Ame Barry [facility] LAB BLOOD ORDERABLES Final Res ult [facility] [address], [place] [address] [facility] [address] [place] [address] * Hepatitis C Antibody with Reflex to HCV, RNA, Quantitative, Real-Time PCR (10/06/2022 9:32 AM EDT) Hepatitis C Antibody NON-REACT YANI NON-REACT YANI [facility] [place] [facility] Index 0.11 <1.00 [facility] [place] [facility] Comment: HCV antibody was non-reactive. There is no laboratory evidence of HCV infection. In most cases, no further action is required. However, if recent HCV exposure is suspected, a test for HCV RNA (test code 47646) is suggested. For additional information please refer to http://education.[employer]plic[employer].Sapiens/faq/IMZ16v1 (This link is being provided for informational/ educational purposes only.) Blood Venous blood specimen / Unknown 10/06/2022 9:32 AM EDT 10/06/2022 9:33 AM EDT us Ame Rosasheldon [employer] LAB BLOOD ORDERABLES Final Res ult [facility] [address], [place] [address] [facility] [place] [facility] [address] [place] [address] * Lipid Panel, Standard (10/06/2022 9:32 AM EDT) Cholesterol, Total 157 <200 mg/dL [facility] [place] [facility] HDL Cholesterol 41 > OR = 40 mg/dL [facility] [place] [facility] Triglycerides 101 <150 mg/dL [facility] [place] [facility] LDL Cholesterol 97 mg/dL (calc) [employer] Comment: Reference range: <100 Desirable range <100 mg/dL for primary prevention; <70 mg/dL for patients with CHD or diabetic patients with > or = 2 CHD risk factors. LDL-C is now calculated using the Luis Enrique-Jean calculation, which is a validated novel method providing better accuracy than the Friedewald equation in the estimation of LDL-C. Luis Enrique SS et al. LYSSA. 2013;310(19): 1681-2096 (http://education.[employer].Sapiens/faq/UFD250) Chol/HDLC Ratio 3.8 <5.0 (calc) [facility] [place] [facility] Non-HDL Cholesterol 116 <130 mg/dL (calc) [employer] Comment: For patients with diabetes plus 1 major ASCVD risk factor, treating to a non-HDL-C goal of <100 mg/dL (LDL-C of <70 mg/dL) is considered a therapeutic option. Blood Venous blood specimen / Unknown 10/06/2022 9:32 AM EDT 10/06/2022 9:33 AM EDT us Ame Barry [employer] LAB BLOOD ORDERABLES Final Res ult [facility] [address], [place] [address] [facility] [place] [facility] [address] [place] [address] from Last 3 Months or Most Recently Relevant to Health Maintenance Insurance 2 [place] [address] HSN PARTIAL 2 [place] [address] [employer] [place] [id number] [place] [id number] [place] [id number] Care Teams Golf Course Mechanic Relationship Specialty Start Date End Date Yadi Hyatt MD [address] [place] [phone] PCP - General Internal Medicine 10/19/22
--- OUTSIDE RECORDS SUMMARY | 2025-06-03 10:03 | XMS_ITS | Encounter Summary ---
Author Organization [employer] Address [address] [place] [address] Care Team Providers Care Smoke Jumper Name Role Phone Yadi Hyatt MD Primary Care Pro vider Reason for Visit * Reason Comments Med Refill Encounter Details Date Type Department Care Team ([facility] Contact Info) Description 04/12/2025 Refill [facility] [address] [place], [place] [phone] Juju Strong MD [address] [place], [place] [phone] Tobacco use disorder Social History Tobacco Use [...] documented as of this encounter Care Teams Smoke Jumper Relationship Specialty Start Date End Date Yadi Hyatt MD [address] [place] [id number] PCP - General Internal Medicine 10/19/22 documented as of this encounter
--- OUTSIDE RECORDS SUMMARY | 2025-06-03 10:03 | XMS_ITS | Encounter Summary ---
Author Organization [employer] Address [address] [place] [address] Care Team Providers Care Assembly Adjuster Name Role Phone Yadi Hyatt MD Primary Care Pro vider Reason for Visit * Reason Comments Med Refill Encounter Details Date Type Department Care Team ([facility] Contact Info) Description 01/08/[address] [facility] [address] [place] [address] Ame Rubin FNP Social History Tobacco Use [...] documented as of this encounter Care Teams Assembly Adjuster Relationship Specialty Start Date End Date Yadi Hyatt MD [address] [place] [phone] PCP - General Internal Medicine 10/19/22 documented as of this encounter
== END 2025-06-03 10:03 | disposition home or self-care (01) ==
LOC: HO.PMC 09:10
PROVIDERS: PCP Student in an Organized Health Care Education/Training Program; Visit Provider Anesthesiology
DX: M46.1 Sacroiliitis, not elsewhere classified (principal); M53.3 Sacrococcygeal disorders, not elsewhere classified; M54.51 Vertebrogenic low back pain; M51.369 Other intervertebral disc degeneration, lumbar region without mention of lumbar back pain or lower extremity pain
CPT/HCPCS: 99214

== ENCOUNTER → 2025-06-03 09:09 | Outpatient (BNVA) | payer OTHER, SELFPAY | PROVIDERS: PCP Student in an Organized Health Care Education/Training Program; Visit Provider Anesthesiology | DX: M53.3 Sacrococcygeal disorders, not elsewhere classified (principal); M46.1 Sacroiliitis, not elsewhere classified; M54.51 Vertebrogenic low back pain; M51.361 Other intervertebral disc degeneration, lumbar region with lower extremity pain only; F17.210 Nicotine dependence, cigarettes, uncomplicated | CPT/HCPCS: 99212 ==